=== PATIENT | female | born 1945 | race Caucasian/White ===

== ENCOUNTER 2016-11-12 14:02 | Observation (INO) | payer OTHER ==
[~2016-11-12] VITALS: Ht 154.9 cm; Wt 74.6 kg
[~2016-11-12 14:02] MED LIST: ASPEC81 PO; ATOR-24 PO; CARV12.52 PO; LISI5TAB3 PO; OXYC1TAB3 PO
[2016-11-12 14:05] VITALS: Ht 154.9 cm; Wt 74.6 kg
[2016-11-12] MEDS ORDERED: ASPIRIN 81 MG CHEW PO STA (14:17)
[2016-11-12] MEDS ORDERED: DTRSR5 PO (14:18)
--- NOTE | 2016-11-12 14:40 | DIAGNOSTIC IMAGING REPORT ---
CHEST ONE VIEW PORTABLE CLINICAL HISTORY: 71 years-old Female presenting with Chest Pain. TECHNIQUE: Portable upright AP view of the chest was obtained. COMPARISON: 03/16/2010. FINDINGS: Atherosclerosis of aortic arch. Cardiac silhouette enlarged. Mild pulmonary vascular prominence. Lungs and pleural spaces clear. Osseous structures normal. Previously noted large hiatal hernia is no longer apparent, possibly collapsed or repaired. IMPRESSION: 1. Cardiomegaly and mild vascular prominence. No other evidence of acute cardiopulmonary disease. Electronically signed by: Phoenix Massey M.D. 11/12/2016 2:39 PM Dictated Date/Time: 11/12/2016 2:37 PM
[2016-11-12 15:44] LABS: BASO % 0.1 %; BASO ABS # 0.01 K/uL (0-0.2); COMPLETE YES; HEMATOCRIT 41.1 % (37-47); IG% 0.5 %; LYMPH % 20.2 %; MEAN CELL VOLUME 86.3 fL (80-100); MEAN CORPUSCULAR HEMOGLOBIN 29.6 pg (25-34); MEAN CORPUSCULAR HGB CONC 34.3 g/dl (32-36); MEAN PLATELET VOLUME 9.6 fL (7.4-10.4); MONO % 7.3 %; NEUT % 69.9 %; PLATELET COUNT 133 K/uL (130-400); RED BLOOD COUNT 4.76 M/uL (4.2-5.4); WHITE BLOOD COUNT 7.91 K/uL (4.8-10.8)
[2016-11-12 16:05] LABS: BLOOD UREA NITROGEN 13 mg/dl (7-18); BUN/CREATININE RATIO 14.7 (10-20); CALCIUM 10.1 mg/dl (8.5-10.1); CARBON DIOXIDE 25 mmol/L (21-32); CHLORIDE 108 mmol/L (98-107); GLUCOSE 94 mg/dl (70-99); SODIUM 140 mmol/L (136-145)
[2016-11-12 17:20] VITALS: O2SAT 99
[2016-11-12] MEDS ORDERED: ACETAMINOPHEN 325 MG TAB PO PRN (18:15)
[2016-11-12] MEDS ORDERED: AMLODIPINE BESYLATE 5 MG TAB PO ONE (18:30)
[2016-11-12] MEDS ORDERED: HydrALAZINE HCL 20 MG/ML VIAL IV. PRN (18:30)
[2016-11-12] MEDS ORDERED: IV FLUIDS COMPLETED PRN (18:30)
[2016-11-12] MEDS ORDERED: ONDANSETRON INJ 2 MG/ML 2 ML VIAL IV PRN (18:30)
--- NOTE | 2016-11-12 18:37 | History and Physical ---
History & Physical Date & Time of Service: Nov 12, 2016 at 18:37 Chief Complaint: Chest Tenderness Primary Care Physician: Tanisha Burnett D.O. History of Present Illness Source: patient, family The patient is a 71-year-old female presents to the emergency department with complaint of left-sided chest tightness that began after awakening this morning with doing some routine activities. She has no associated shortness of breath or palpitations. She has had a sensation like this in the past but not the same severity or duration. She also describes some vague associated left axillary discomfort. Past Medical/Surgical History Medical Problems: (1) Hypertension Status: Chronic Family History Patient reports no known family medical history. Social History Smoking Status: Never Smoker Smokeless Tobacco Use: No Alcohol Use: none Drug Use: none Housing status: lives alone Occupational Status: retired Immunizations History of Influenza Vaccine: No History of Tetanus Vaccine?: No History of Pneumococcal: No History of Hepatitis B Vaccine: No Multi-Drug Resistant Organisms History of MDRO: No Allergies Coded Allergies: No Known Allergies (Verified , 11/12/16) Home Medications Scheduled Aspirin Enteric Coated (Ecotrin Or Generic *), 81 MG PO DAILY Atorvastatin (Lipitor), 40 MG PO DAILY Carvedilol (Coreg), 12.5 MG PO BID Lisinopril (Zestril), 5 MG PO DAILY Oxybutynin Chloride (Oxybutynin Chloride ER), 5 MG PO BID Review of Systems The patient denies palpitations, shortness of breath, lower extremity swelling, vision change, hearing change, sore throat, fevers, chills, sweats, weight change, fatigue, nausea, vomiting, diarrhea or constipation, abdominal pain, pelvic pain, blood in urine or stool, dysuria, urinary frequency or urgency, lightheadedness , dizziness, headache, memory loss, rash, abnormal bruising or bleeding, imbalance, focal or generalized weakness, numbness or tingling in arms or legs, generalized arthralgias or myalgias, back or neck pain, or night sweats. The review of systems is otherwise negative other than for that already noted above, and at least 10 systems have been reviewed. Physical Exam Vital Signs Date Time Temp Pulse Resp B/P (MAP) Pulse Ox O2 Delivery O2 Flow Rate FiO2 11/12/16 17:44 66 21 175/109 100 Room Air 11/12/16 17:20 99 Room Air 11/12/16 16:33 66 11/12/16 16:24 65 23 177/83 99 Room Air 11/12/16 15:10 82 24 175/96 95 Room Air 11/12/16 15:10 Room Air 11/12/16 14:05 37.0 75 18 193/92 98 Room Air The patient is awake, well-developed and adequately nourished, alert and oriented 3, normocephalic and atraumatic, lying in bed and in no acute distress. HEENT--PERRL, EOMI, mucous membranes and oropharynx normal. Neck--supple, no JVD or bruits, thyroid normal, trachea midline, no adenopathy. Heart--normal S1 and S2, no extra beats, no murmurs, rubs or gallops. Lungs--clear bilaterally with good air movement, no respiratory distress, no accessory muscle use. Abdomen--normal bowel sounds and soft, nontender and nondistended, no hernias or masses, no organomegaly. Extremities--no cyanosis, clubbing or edema. There are good distal pulses b/l. Dermatologic--normal skin turgor, normal color, warm and dry, no abnormal lymph nodes, no rash. Neurologic--cranial nerves II through XII grossly intact, motor and sensory examination normal. Rheumatologic--normal range of motion, nontender, muscles and joints. Psychiatric--normal affect. Diagnostics Laboratory Results Results Past 24 Hours Test 11/12/16 15:29 11/12/16 16:19 11/12/16 18:17 Range/Units White Blood Count 7.91 4.8-10.8 K/uL Red Blood Count 4.76 4.2-5.4 M/uL Hemoglobin 14.1 12.0-16.0 g/dL Hematocrit 41.1 37-47 % Mean Corpuscular Volume 86.3 80-100 fL Mean Corpuscular Hemoglobin 29.6 25-34 pg Mean Corpuscular Hemoglobin Concent 34.3 32-36 g/dl Platelet Count 133 130-400 K/uL Mean Platelet Volume 9.6 7.4-10.4 fL Neutrophils (%) (Auto) 69.9 % Lymphocytes (%) (Auto) 20.2 % Monocytes (%) (Auto) 7.3 % Eosinophils (%) (Auto) 2.0 % Basophils (%) (Auto) 0.1 % Neutrophils # (Auto) 5.52 1.4-6.5 K/uL Lymphocytes # (Auto) 1.60 1.2-3.4 K/uL Monocytes # (Auto) 0.58 0.11-0.59 K/uL Eosinophils # (Auto) 0.16 0-0.5 K/uL Basophils # (Auto) 0.01 0-0.2 K/uL RDW Standard Deviation 41.9 36.4-46.3 fL RDW Coefficient of Variation 13.4 11.5-14.5 % Immature Granulocyte % (Auto) 0.5 % Immature Granulocyte # (Auto) 0.04 0.00-0.02 K/uL Sodium Level 140 136-145 mmol/L Potassium Level 4.0 3.5-5.1 mmol/L Chloride Level 108 98-107 mmol/L Carbon Dioxide Level 25 21-32 mmol/L Anion Gap 7.0 3-11 mmol/L Blood Urea Nitrogen 13 7-18 mg/dl Creatinine 0.90 0.60-1.20 mg/dl Est Creatinine Clear Calc Drug Dose 52.4 ml/min Estimated GFR () 74.0 Estimated GFR (Non- 63.9 BUN/Creatinine Ratio 14.7 10-20 Random Glucose 94 70-99 mg/dl Calcium Level 10.1 8.5-10.1 mg/dl Total Creatine Kinase 67 26-192 U/L Creatine Kinase MB 1.1 0.5-3.6 ng/ml Creatine Kinase MB Ratio 0-3.0 Troponin I < 0.015 0-0.045 ng/ml Diagnostic Radiology Patient Name: CAMI SHRESTHA Unit Number: [id number] Dictated: 11/12/161436 Transcribed: 11/12/161436 PBS Printed Date/Time: [~ rep prt dt]/[~ rep prt tm] [~ rep ct labl] - [~ rep ct ivnm] [facility] Radiology Department [place], [place] [id number] Dictated: 11/12/161436 Transcribed: 11/12/161436 PBS Printed Date/Time: [~ rep prt dt]/[~ rep prt tm] [~ rep ct labl] - [~ rep ct ivnm] [~ rep ct add3]] CHEST ONE VIEW PORTABLE CLINICAL HISTORY: 71 years-old Female presenting with Chest Pain. TECHNIQUE: Portable upright AP view of the chest was obtained. COMPARISON: 03/16/2010. FINDINGS: Atherosclerosis of aortic arch. Cardiac silhouette enlarged. Mild pulmonary vascular prominence. Lungs and pleural spaces clear. Osseous structures normal. Previously noted large hiatal hernia is no longer apparent, possibly collapsed or repaired. IMPRESSION: 1. Cardiomegaly and mild vascular prominence. No other evidence of acute cardiopulmonary disease. Electronically signed by: Phoenix Massey M.D. 11/12/2016 2:39 PM Dictated Date/Time: 11/12/2016 2:37 PM The status of this report is Signed. Draft = Not yet reviewed or approved by Radiologist. Signed = Reviewed and approved by Radiologist. <AttendingPhy></AttendingPhy> <FamilyPhy>Clifton Azar M.D.</FamilyPhy> < PrimaryPhy>Tanisha Burnett D.O.</PrimaryPhy> <UnitNumber>[id number]</UnitNumber> <VisitNumber>[id number]</VisitNumber> <PatientName>CAMI SHRESTHA You</ PatientName> <DateOfBirth>1945</DateOfBirth> <Location>[facility]</Location> < ServiceDate>11/12/16</ServiceDate> <MNE>ESINDI</MNE> <OrderingPhy>Akash Shah DO</OrderingPhy> <OrderingPhyMNE>f rep ord dr walker</OrderingPhyMNE> < DictatingPhyMNE>f rep dict dr walker</DictatingPhyMNE> <CCListMNE>f rep ct tanae</ CCListMNE> <AdmittingPhyMNE>f pt admit dr walker</AdmittingPhyMNE> <AttendingPhyMNE >f pt attend dr walker</AttendingPhyMNE> <ConsultingPhyMNE>f pt consult dr walker</ConsultingPhyMNE> <FamilyPhyMNE>f pt fam dr walker</FamilyPhyMNE> <OtherPhyMNE>f pt other dr walker</OtherPhyMNE> < PrimaryPhyMNE>f pt prim care dr walker</PrimaryPhyMNE> <ReferringPhyMNE>f pt referring dr walker</ReferringPhyMNE> EKG EKG shows normal sinus rhythm at 60 bpm, worsening T-wave inversions in leads III and aVF compared to previous. Impression Assessment and Plan Precordial chest pain with abnormal EKG/normal troponin/resolved symptoms-- The patient will be admitted to telemetry for serial cardiac enzymes, cardiac rhythm monitoring and a 2-D echocardiogram with Dopplers. Carvedilol 12.5 mg by mouth twice a day. Aspirin 81 mg by mouth daily. Lisinopril 5 mg by mouth daily. Normal saline with KCl 20 mEq at 75 ML's per hour. Check a fasting lipid profile and hemoglobin A1c. Hyperlipidemia-- Atorvastatin 40 mg by mouth daily. Bladder incontinence-- continue oxybutynin Level of Care Telemetry Advanced Directives Existing Advance Directive: No Existing Living Will: No Existing Power of Radio Program Checker: No Resuscitation Status FULL RESUSCITATION VTE Prophylaxis VTE Risk Assessment Done? Y/N: Yes Risk Level: Moderate Given or contraindicated: SCD's Social Service Consult None Apply
[2016-11-12 19:19] VITALS: BP 181/76; PULSE 63; TEMP 36.7; O2SAT 96
--- NOTE | 2016-11-12 19:59 | EMERGENCY ROOM VISIT NOTE ---
History Report prepared by Jacquelineiblorena: Cande Hodge Under the Supervision of: Dr. Akash Shah D.O. First contact with patient: 14:09 Chief Complaint: CARDIAC ASSESSMENT Stated Complaint: CHEST TENDERNESS History of Present Illness The patient is a 71 year old female who presents to the Emergency Room with complaints of chest pain that started around 0930 this morning. The pain lasted for approximately 1 hour and has not returned. She states she was "sitting down " when the pain started. Nothing seemed to make it better or worse and she rates her discomfort as a 3/10. She took no medication for her pain, but states she did take her regular baby Aspirin this morning when she took her daily medications. She admits to a history of an NE in 2004 and states her bilateral underarms ached at that time, but she experienced no chest pain. She did experience some underarm pain this morning, but states "it wasn't as bad" as the pain she experienced when she had her NE. She denies any jaw or shoulder pain. The patient had 2 left sided stents placed in [place], [place], after her NE. She states she underwent a stress test last month that was unremarkable. She takes no daily blood thinners. The patient denies any headache, change in vision , fevers, shortness of breath, nausea, vomiting, diarrhea, pain with urination, and melena. Source of History: patient Onset: 929 this morning Position: chest Symptom Intensity: 3/10 Timing: resolved Associated Symptoms: No fevers, No headache, No SOB, No nausea, No vomiting , No melena, No diarrhea, No urinary symptoms Review of Systems See HPI for pertinent positives & negatives. A total of 10 systems reviewed and were otherwise negative. Past Medical & Surgical Medical Problems: (1) Hypertension (2) Intractable nausea and vomiting (3) Precordial chest pain Family History Patient reports no known family medical history. Social History Smoking Status: Never Smoker Alcohol Use: none Drug Use: none Marital Status: Housing Status: lives with family Occupation Status: retired Current/Historical Medications Scheduled Aspirin Enteric Coated (Ecotrin Or Generic *), 81 MG PO DAILY Atorvastatin (Lipitor), 40 MG PO DAILY Carvedilol (Coreg), 12.5 MG PO BID Lisinopril (Zestril), 5 MG PO DAILY Oxybutynin Chloride (Oxybutynin Chloride ER), 5 MG PO BID Allergies Coded Allergies: No Known Allergies (Verified , 11/12/16) Physical Exam Vital Signs Date Time Temp Pulse Resp B/P (MAP) Pulse Ox O2 Delivery O2 Flow Rate FiO2 11/12/16 17:44 66 21 175/109 100 Room Air 11/12/16 17:20 99 Room Air 11/12/16 16:33 66 11/12/16 16:24 65 23 177/83 99 Room Air 11/12/16 15:10 82 24 175/96 95 Room Air 11/12/16 15:10 Room Air 11/12/16 14:05 37.0 75 18 193/92 98 Room Air Physical Exam GENERAL: Patient is alert, sitting up in bed, well appearing, well nourished, no distress, non-toxic EYE EXAM: normal conjunctiva OROPHARYNX: no exudate, no erythema, lips, buccal mucosa, and tongue normal and mucous membranes are moist NECK: supple, no nuchal rigidity, no adenopathy, non-tender LUNGS: Clear to auscultation. Normal chest wall mechanics HEART: no murmurs, S1 normal and S2 normal ABDOMEN: abdomen soft, non-tender, normo-active bowel sounds, no masses, no rebound or guarding. BACK: Back is symmetrical on inspection and there is no deformity, no midline tenderness, no CVA tenderness. SKIN: no rashes and no bruising UPPER EXTREMITIES: upper extremities are grossly normal. LOWER EXTREMITIES: No pitting edema. NEURO EXAM: Normal sensorium, cranial nerves II-XII grossly intact, normal speech, no gross weakness of arms, no gross weakness of legs. Gross sensation intact. Medical Decision & Procedures ER Provider Diagnostic Interpretation: Radiology results as stated below per my review and the radiologist's interpretation: CHEST ONE VIEW PORTABLE CLINICAL HISTORY: 71 years-old Female presenting with Chest Pain. TECHNIQUE: Portable upright AP view of the chest was obtained. COMPARISON: 03/16/2010. FINDINGS: Atherosclerosis of aortic arch. Cardiac silhouette enlarged. Mild pulmonary vascular prominence. Lungs and pleural spaces clear. Osseous structures normal. Previously noted large hiatal hernia is no longer apparent, possibly collapsed or repaired. IMPRESSION: 1. Cardiomegaly and mild vascular prominence. No other evidence of acute cardiopulmonary disease. Electronically signed by: Phoenix Massey M.D. 11/12/2016 2:39 PM Laboratory Results 11/12/16 15:29 Red Blood Count 4.76, Mean Corpuscular Volume 86.3, Mean Corpuscular Hemoglobin 29.6, Mean Corpuscular Hemoglobin Concent 34.3, Mean Platelet Volume 9.6, Neutrophils (%) (Auto) 69.9, Lymphocytes (%) (Auto) 20.2, Monocytes (%) (Auto) 7.3, Eosinophils (%) (Auto) 2.0, Basophils (%) (Auto) 0.1, Neutrophils # (Auto) 5.52, Lymphocytes # (Auto) 1.60, Monocytes # (Auto) 0.58, Eosinophils # (Auto) 0.16, Basophils # (Auto) 0.01 11/12/16 15:29 11/12/16 16:19 Test 11/12/16 15:29 11/12/16 16:19 White Blood Count 7.91 K/uL (4.8-10.8) Red Blood Count 4.76 M/uL (4.2-5.4) Hemoglobin 14.1 g/dL (12.0-16.0) Hematocrit 41.1 % (37-47) Mean Corpuscular Volume 86.3 fL (80-100) Mean Corpuscular Hemoglobin 29.6 pg (25-34) Mean Corpuscular Hemoglobin Concent 34.3 g/dl (32-36) Platelet Count 133 K/uL (130-400) Mean Platelet Volume 9.6 fL (7.4-10.4) Neutrophils (%) (Auto) 69.9 % Lymphocytes (%) (Auto) 20.2 % Monocytes (%) (Auto) 7.3 % Eosinophils (%) (Auto) 2.0 % Basophils (%) (Auto) 0.1 % Neutrophils # (Auto) 5.52 K/uL (1.4-6.5) Lymphocytes # (Auto) 1.60 K/uL (1.2-3.4) Monocytes # (Auto) 0.58 K/uL (0.11-0.59) Eosinophils # (Auto) 0.16 K/uL (0-0.5) Basophils # (Auto) 0.01 K/uL (0-0.2) RDW Standard Deviation 41.9 fL (36.4-46.3) RDW Coefficient of Variation 13.4 % (11.5-14.5) Immature Granulocyte % (Auto) 0.5 % Immature Granulocyte # (Auto) 0.04 K/uL (0.00-0.02) Anion Gap 7.0 mmol/L (3-11) Est Creatinine Clear Calc Drug Dose 52.4 ml/min Estimated GFR () 74.0 Estimated GFR (Non- 63.9 BUN/Creatinine Ratio 14.7 (10-20) Calcium Level 10.1 mg/dl (8.5-10.1) Magnesium Level 2.0 mg/dl (1.8-2.4) Total Bilirubin 1.0 mg/dl (0.2-1) Direct Bilirubin 0.2 mg/dl (0-0.2) Aspartate Amino Transf (AST/SGOT) 17 U/L (15-37) Alanine Aminotransferase (ALT/SGPT) 21 U/L (12-78) Alkaline Phosphatase 83 U/L (45-117) Total Protein 7.0 gm/dl (6.4-8.2) Albumin 3.8 gm/dl (3.4-5.0) Laboratory results per my review. Medications Administered Medications (Trade) Dose Ordered Sig/Glenn Route Start Time Stop Time Status Last Admin Dose Admin Aspirin (Aspirin Chew) 324 mg NOW STAT PO 11/12/16 14:17 11/12/16 14:18 DC 11/12/16 15:17 324 MG ECG Indication: chest pain Rate (beats per minute): 68 Rhythm: sinus rhythm Findings: other (normal axis, flipped T) Comparison ECG Date: T-waves are more prominent in the inferior and lateral leads when compared to previous ED Course ED COURSE: Vital signs were reviewed and showed the patient is hypertensive. The patients medical record was reviewed The above diagnostic studies were performed and reviewed. ED treatments and interventions as stated above. 1410: The patient was evaluated in room C8. A complete history and physical examination was performed. 1417: Aspirin 324 mg PO. 1723: I discussed the patients case with Dr. Mccallum, [facility] Hospitalist. The patient will be further evaluated. 1730: Upon reevaluation, the patient is resting comfortably. I discussed my findings with the patient and she understands and agrees with the treatment plan. Based on the patients age, coexisting illnesses, exam and lab findings the decision to treat as an inpatient was made. The patient remained stable while under my care. The patient will be evaluated for further management. Medical Decision Differential diagnoses includes but is not limited to acute coronary syndrome, myocardial infarction, pericarditis, pulmonary embolus, aortic dissection, pneumonia, pneumothorax, musculoskeletal, shingles, esophageal. Patient is a 71-year-old female who presents to the ER for precordial chest pain which have been present for 1 hour earlier this morning. Patient notes he was in the middle of her chest and under her arm. It felt similar to her previous NE where she had 2 stents placed. Recent stress with in the past 2 months was unremarkable. Patient. Pain has completely abated. Aspirin was given. No chest pain upon arrival. EKG shows new flipped T waves. Chest x- ray was unremarkable. Troponin was negative. Patient was updated bedside. Discussed with internal medicine and patient was observed overnight. Medication Reconcilliation Current Medication List: was personally reviewed by me Blood Pressure Screening Patient's blood pressure: Elevated blood pressure The patients elevated blood pressure will be further evaluated by the hospital medicine team. Consults Time Called: 1720 Consulting Physician: Dr. Mccallum [facility] Hospitalist Returned Call: 1723 I discussed the patients case with Dr. Mccallum [facility] Hospitalist. The patient will be further evaluated. Impression Primary Impression: Precordial chest pain Additional Impression: Acute electrocardiogram changes Scribe Attestation The scribe's documentation has been prepared under my direction and personally reviewed by me in its entirety. I confirm that the note above accurately reflects all work, treatment, procedures, and medical decision making performed by me. Departure Information Dispostion Being Evaluated By Hospitalist Referrals Tanisha Burnett D.O. (PCP) Patient Instructions My [facility] [address] Problem Qualifiers
[2016-11-12 20:00] VITALS: O2SAT 96
[2016-11-12] MEDS: NSS + 20MEQ KCL 1000ML 1,000 ML IV SCH (20:19)
[2016-11-12 20:29] LABS: CKMB/CK RATIO 1.5 (0-3.0)
[2016-11-12] MEDS: OXYBUTYNIN CHLORIDE 5 MG TABCR PO SCH (20:57)
[2016-11-12 20:58] VITALS: BP 166/78; PULSE 73
[2016-11-12] MEDS: CARVEDILOL 12.5 MG TAB PO SCH (20:58)
[2016-11-12 23:31] VITALS: BP 135/72; PULSE 63; TEMP 36.5; O2SAT 97
[2016-11-13 03:07] LABS: CKMB/CK RATIO 2.1 (0-3.0)
[2016-11-13 04:00] VITALS: BP 133/80; PULSE 58; TEMP 36.5; O2SAT 97
[2016-11-13 07:25] VITALS: BP 147/79; PULSE 65; TEMP 36.8; O2SAT 98
[2016-11-13] MEDS: OXYBUTYNIN CHLORIDE 5 MG TABCR PO SCH (07:56)
[2016-11-13] MEDS: CARVEDILOL 12.5 MG TAB PO SCH (07:56)
[2016-11-13 08:00] VITALS: O2SAT 98
[2016-11-13 08:24] LABS: BASO % 0.2 %; BASO ABS # 0.01 K/uL (0-0.2); COMPLETE YES; EOS % 2.6 %; HEMATOCRIT 39.9 % (37-47); IG% 0.5 %; LYMPH % 21.5 %; LYMPH ABS # 1.23 K/uL (1.2-3.4); MEAN CELL VOLUME 86.6 fL (80-100); MEAN CORPUSCULAR HEMOGLOBIN 30.2 pg (25-34); MEAN CORPUSCULAR HGB CONC 34.8 g/dl (32-36); MEAN PLATELET VOLUME 9.4 fL (7.4-10.4); MONO % 6.6 %; NEUT % 68.6 %; PLATELET COUNT 123 K/uL (130-400); RED BLOOD COUNT 4.61 M/uL (4.2-5.4); WHITE BLOOD COUNT 5.73 K/uL (4.8-10.8)
[2016-11-13] MEDS: NSS + 20MEQ KCL 1000ML 1,000 ML IV SCH (08:33)
[2016-11-13 08:52] LABS: CALCIUM 9.4 mg/dl (8.5-10.1); CREATININE 0.86 mg/dl (0.60-1.20); POTASSIUM 4.2 mmol/L (3.5-5.1)
[2016-11-13 08:58] LABS: INR 1.1 (0.9-1.1); PROTHROMBIN TIME (PATIENT) 11.4 SECONDS (9.0-12.0)
[2016-11-13] MEDS ORDERED: ASPIRIN 81 MG ECTAB PO SCH (09:00)
[2016-11-13] MEDS ORDERED: LISINOPRIL 5 MG TAB PO SCH (09:00)
[2016-11-13] MEDS ORDERED: ATORVASTATIN 40 MG TAB PO SCH (09:00)
[2016-11-13 11:15] VITALS: BP 159/81; PULSE 61; TEMP 36.7; O2SAT 94
--- NOTE | 2016-11-13 11:15 | Discharge Summary ---
Discharge Summary Date of Service Nov 13, 2016. Discharge Summary Admission Date: Nov 12, 2016 at 18:11 Discharge Date: Nov 13, 2016 Immunizations: Have You Had Influenza Vaccine: No History of Tetanus Vaccine?: No History of Pneumococcal: No History of Hepatitis B Vaccine: No Hospital Course Patient had atypical chest pain, sharp, at rest. Patient reports having negtaive EKG exercise stress test EKG showed twave inversion on AVF III, which are depper than her EKG on record here 5 years ago. Recommend f/u with Dr. Azar to review EKG. This includes examination of the patient, discharge planning, medication reconciliation, and communication with other providers. Discharge Instructions Please refer to the electronic Patient Visit Report (Discharge Instructions) for additional information. Additional Copies To Clifton Azar M.D.
--- NOTE | 2016-11-13 11:16 | Discharge Instructions ---
Discharge Instructions Date of Service Nov 13, 2016. Admission Reason for Admission: Precordial Chest Pain Discharge Discharge Diagnosis / Problem: Atypical chest pain Discharge Goals Goal(s): Decrease discomfort, Improve function Activity Recommendations Activity Limitations: resume your previous activity . Current Hospital Diet Patient's current hospital diet: AHA Diet (Heart Healthy) Discharge Diet Recommended Diet: AHA Diet (Heart Healthy) Pending Studies Studies pending at discharge: no Medical Emergencies . Who to Call and When: Medical Emergencies: If at any time you feel your situation is an emergency, please call 911 immediately. . Non-Emergent Contact Non-Emergency issues call your: Unarmed Security Officer Call Non-Emergent contact if: your pain is worsening . . "Provider Documentation" section prepared by Juan Azar. . Stoker Erector And Servicer Recommendations Stoker Erector And Servicer Recommendations: Recommend F/U with Dr. Azar in 10 days VTE Core Measure Inpt VTE Proph given/why not?: SCD's
[2016-11-13 11:22] LABS: CKMB/CK RATIO 1.6 (0-3.0)
[2016-11-13 11:28] VITALS: BP 159/81; PULSE 61; TEMP 36.7; O2SAT 94
== END 2016-11-13 11:50 | disposition home or self-care (01) ==
LOC: C.EDB 14:05 → C.MED 18:11 → ENRESERV 18:18
PROVIDERS: ADMIT Hospitalist; ATTEND Internal Medicine Sports Medicine
DX: R07.89 Other chest pain (principal); I10 Essential (primary) hypertension; Z79.82 Long term (current) use of aspirin; Z98.890 Other specified postprocedural states

== ENCOUNTER 2019-05-24 14:33 | Observation (INO) ==
[2019-05-24] MEDS ORDERED: ASPIRIN CHEW 324 MG PO STA (15:12)
--- NOTE | 2019-05-24 15:36 | Emergency Department Note ---
History of Present Illness General Chief Complaint: Chest Pain Stated Complaint: CHEST PAIN Time Seen by Provider: 05/24/19 15:04 History of Present Illness Provider Complaint: chest pain Onset (ago): hour(s) 3 Time: 12:00 Duration: now resolved Onset: during rest Pain Location: substernal Pain Radiation: LUE Maximum Pain Intensity: 9 Current Pain Intensity: 0 Quality: + dull Relieved By: + nothing Exacerbated By: + nothing Context: no recent surgery, no recent immobilization, no recent travel and no history of DVT/PE Associated symptoms: + nausea and + cough; no vomiting, no palpitations, no f ever and no leg swelling Treatments prior to arrival: none Related Data On Oral Contraceptives: No Home Medications Home Medications Medication Instructions Recorded Confirmed Type aspirin 81 mg PO QAM 04/30/19 05/24/19 History atorvastatin 40 mg PO HS 04/30/19 05/24/19 History carvedilol 12.5 mg PO BID 04/30/19 05/24/19 History lisinopril 5 mg PO QAM 04/30/19 05/24/19 History meclizine 25 mg PO TID PRN #14 tab 04/30/19 05/24/19 Rx oxybutynin chloride 5 mg PO BID PRN 04/30/19 05/24/19 History Allergies Allergy/AdvReac Type Severity Reaction Status Date / Time No Known Allergies Allergy Unknown Verified 04/30/19 11:23 Past Med/Surg History Medical History (Updated 05/24/19 @ 17:59 by Kilo Morataya) Hyperlipidemia Hypertension (Chronic) Intractable nausea and vomiting No pertinent family history Precordial chest pain Urinary incontinence Vertigo Surgical History (Updated 05/24/19 @ 15:33 by Kilo Morataya) H/O heart artery stent Social History Feels Safe at Home: Yes Smoking Status: Never smoker Review of Systems A total of 10 systems reviewed and were otherwise negative Physical Exam Vital Signs Vital Signs - 24 hr 05/24/19 14:41 05/24/19 14:54 05/24/19 15:59 Temperature 36.9 C Temperature Source Oral Pulse Rate 81 75 Pulse Rate from SpO2 Sensor 74 Respiratory Rate 20 20 Blood Pressure 210/97 H 197/92 H Blood Pressure Mean 134 113 Pulse Oximetry 99 98 97 Oxygen Delivery Method Room Air Room Air Sepsis Recent Fever Within 48 Hours No Sepsis New/Unexplained Change in Mental Status No Sepsis Action Taken by Nursing No Action Required 05/24/19 16:00 05/24/19 16:30 05/24/19 16:33 Temperature Temperature Source Pulse Rate 71 64 66 Pulse Rate from SpO2 Sensor Respiratory Rate 14 15 18 Blood Pressure 202/93 H Blood Pressure Mean 123 Pulse Oximetry 96 Oxygen Delivery Method Room Air Sepsis Recent Fever Within 48 Hours Sepsis New/Unexplained Change in Mental Status Sepsis Action Taken by Nursing 05/24/19 17:00 Temperature Temperature Source Pulse Rate 64 Pulse Rate from SpO2 Sensor Respiratory Rate 14 Blood Pressure 185/82 H Blood Pressure Mean 115 Pulse Oximetry Oxygen Delivery Method Sepsis Recent Fever Within 48 Hours Sepsis New/Unexplained Change in Mental Status Sepsis Action Taken by Nursing Physical Exam GENERAL: She is oriented to person, place, and time. She appears well-developed and well-nourished. She does not appear distressed. HENT: Exam performed. -Head: Normocephalic and atraumatic. -Right Ear: External ear normal. No mastoid tenderness. -Left Ear: External ear normal. No mastoid tenderness. -Mouth/Throat: The oropharynx is clear and moist. No trismus in the jaw. No dental abscesses or uvula swelling. No oropharyngeal exudate or tonsillar abscesses. EYES: Conjunctivae and EOM are normal. Pupils are equal, round, and reactive to light. Right eye exhibits no discharge. Left eye exhibits no discharge. No scleral icterus. NECK: Normal range of motion. Neck supple. No JVD present. No spinous process tenderness present. No carotid bruit present. No rigidity. No tracheal deviation and normal range of motion present. No Brudzinski's sign and no Kernig's sign noted. CV: Normal rate, regular rhythm, normal heart sounds and intact distal pulses. There is no peripheral edema. Palpable radial pulses bue. PULM/CHEST: Effort normal and breath sounds normal. No respiratory distress. No stridor. She has no wheezes. She has no rales. -Chest Wall: She exhibits no tenderness. ABD: The abdomen is soft. Bowel sounds are normal. She has no distension. No mass is present. There is no tenderness. There is no rebound, no guarding, no Cade's sign and no tenderness at McBurney's point. Rovsig negative MUSC/SKEL: Normal range of motion. There is no peripheral edema, tenderness or deformity. LYMPH: No cervical adenopathy. NEURO: She is alert and oriented to person, place, and time. She has normal strength. No cranial nerve deficit or sensory deficit. Coordination and gait normal. GCS eye subscore is 4. GCS verbal subscore is 5. GCS motor subscore is 6. Cerebellar tests wnl. SKIN: Skin is warm and dry. She is not diaphoretic. PSYCH: She has a normal mood and affect. Behavior is normal. Judgment and thought content normal. Course Course 1500: The patient was evaluated in room A9. A complete history and physical exam was performed. 1720: Vital signs stable. Labs and imaging within normal limits. Patient has a moderate heart score. She will be admitted for chest pain rule out ACS. Admitted to [facility]ist Dr. Carmichael Administered Medications Discontinued Medications Aspirin (Aspirin) 324 mg PO NOW STA Stop: 05/24/19 15:13 Last Admin: 05/24/19 15:27 Dose: 324 mg Documented by: [id number] Medical Decision Making Laboratory Data Result diagrams: 05/24/19 16:35 05/24/19 16:35 Labs: Lab Results 05/24/19 05/24/19 05/24/19 Range/Units 16:35 16:35 16:35 WBC 6.51 (4.8-10.8) K/uL RBC 4.35 (4.2-5.4) M/uL Hgb 12.9 (12.0-16.0) g/dL Hct 38.0 (37-47) % MCV 87.4 (80-100) fL MCH 29.7 (25-34) pg MCHC 33.9 (32-36) g/dL RDW Std Deviation 45.3 (36.4-46.3) fL RDW Coeff of Sara 14.0 (11.5-14.5) % Plt Count 146 (130-400) K/uL MPV 9.8 (7.4-10.4) fL Immature Gran % (Auto) 0.3 % Neut % (Auto) 60.1 % Lymph % (Auto) 26.7 % [place] % (Auto) 8.9 % Eos % (Auto) 3.8 % Baso % (Auto) 0.2 % Immature Gran # (Auto) 0.02 (0.00-0.02) K/uL Neut # (Auto) 3.91 (1.4-6.5) K/uL Lymph # (Auto) 1.74 (1.2-3.4) K/uL [place] # (Auto) 0.58 (0.11-0.59) K/uL Eos # (Auto) 0.25 (0-0.5) K/uL Baso # (Auto) 0.01 (0-0.2) K/uL PT 11.4 (9.0-12.0) Seconds INR 1.1 (0.9-1.1) APTT 24.4 (21.0-31.0) Seconds PTT Ratio 0.9 Sodium 142 (136-145) mmol/L Potassium 3.7 (3.5-5.1) mmol/L Chloride 113 H (98-107) mmol/L Carbon Dioxide 25 (21-32) mmol/L Anion Gap 4.0 (3-11) BUN 16 (7-18) mg/dl Creatinine 0.68 (0.6-1.2) mg/dl Est Cr Clr Drug Dosing 64.4 ml/min Est GFR ( Amer) 99.2 Est GFR (Non-Af Amer) 85.6 BUN/Creatinine Ratio 23.3 H (10-20) Glucose 104 H (70-99) mg/dl Calcium 9.6 (8.5-10.1) mg/dl Troponin I < 0.015 (0-0.045) ng/ml Lipase 67 L (73-393) U/L Imaging Data Chest x-ray: Radiologist's impression: XR chest 2V PA/lateral CLINICAL HISTORY: 74 years-old Female presenting with Chest Pain. TECHNIQUE: PA and lateral views of the chest were obtained. COMPARISON: 11/12/2016. FINDINGS: Atherosclerosis of the aortic arch. Cardiac silhouette mildly enlarged. Lungs are hyperinflated. No focal opacity. No pleural effusion or pneumothorax. Degenerative changes of the thoracic spine. Exaggerated thoracic kyphosis. Upper abdomen normal. IMPRESSION: 1. Mild cardiomegaly. 2. Hyperinflation may indicate emphysema or relate to exaggerated thoracic kyphosis. 3. No focal infiltrate to suggest pneumonia or edema. ACT 112: Negative or not required by law. Electronically signed by: Phoenix Massey M.D. 05/24/2019 3:50 PM Dictated: 05/24/19 1547 Transcribed: 05/24/191546 ECG Data Rate (beats per minute): 70 Rhythm: normal sinus Findings: no T-wave inversion and no ST elevation Additional Comments: Sinus Rhythym. Rate 70. OH QRS and Qtc intervals within normal limits. No ST elevation or ST depression. Left ventricular hypertrophy present. MDM Narrative Vital signs stable. Labs and imaging within normal limits. Patient has a moderate heart score. She will be admitted for chest pain rule out ACS. Admitted to [facility] hospitalist Dr. Carmichael Impression & Plan Chest pain Discharge Plan Visit Data Chief Complaint: Chest Pain Stated Complaint: CHEST PAIN ED Provider: Kilo Morataya Discharge Problem: Chest pain Patient Disposition: Being Evaluated by Hospitalist Forms Stand Alone Forms: My [facility] Prescriptions Prescriptions: No Action meclizine 25 mg tablet 25 mg PO TID PRN (Reason: dizziness) Qty: 14 RF: 0 atorvastatin 40 mg tablet 40 mg PO HS RF: 0 carvedilol 12.5 mg tablet 12.5 mg PO BID RF: 0 oxybutynin chloride 5 mg tablet extended release 24hr 5 mg PO BID PRN (Reason: OVER ACTIVE BLADDER) RF: 0 lisinopril 5 mg tablet 5 mg PO QAM RF: 0 aspirin 81 mg Tablet,Delayed Release (Dr/Ec) 81 mg PO QAM RF: 0 Referrals Referrals: Tanisha Burnett D.O. [Primary Care Provider] - Discharge Problem: Chest pain Qualifiers: Chest pain type: unspecified Qualified Code(s): R07.9 - Chest pain, unspecified
--- NOTE | 2019-05-24 15:51 | XRay Report ---
XR chest 2V PA/lateral CLINICAL HISTORY: 74 years-old Female presenting with Chest Pain. TECHNIQUE: PA and lateral views of the chest were obtained. COMPARISON: 11/12/2016. FINDINGS: Atherosclerosis of the aortic arch. Cardiac silhouette mildly enlarged. Lungs are hyperinflated. No f ocal opacity. No pleural effusion or pneumothorax. Degenerative changes of the thoracic spine. Exagge rated thoracic kyphosis. Upper abdomen normal. IMPRESSION: 1. Mild cardiomegaly. 2. Hyperinflation may indicate emphysema or relate to exaggerated thoracic kyphosis. 3. No focal infiltrate to suggest pneumonia or edema. ACT 112: Negative or not required by law. Electronically signed by: Phoenix Massey M.D. 05/24/2019 3:50 PM
--- NOTE | 2019-05-24 16:02 | Electrocardiogram Report ---
Test Reason : Blood Pressure : / mmHG Vent. Rate : 070 BPM Atrial Rate : 070 BPM P-R Int : 146 ms QRS Dur : 092 ms QT Int : 390 ms P-R-T Axes : 042 -14 -30 degrees QTc Int : 421 ms Normal sinus rhythm with sinus arrhythmia Minimal voltage criteria for LVH, may be normal variant Nonspecific ST and T wave abnormality Abnormal ECG When compared with ECG of 13-NOV-2016 08:16, T wave inversion no longer evident in Anterior leads Confirmed by Oren Downing ([id number]) on 05/24/2019 4:02:40 PM Referred By: REFERRED SELF Confirmed By:Oren Downing
[2019-05-24 16:49] LABS: Basophils # (auto) 0.01 K/uL (0-0.2); Basophils % (auto) 0.2 %; Eosinophils # (auto) 0.25 K/uL (0-0.5); Eosinophils % (auto) 3.8 %; Hemoglobin 12.9 g/dL (12.0-16.0); Immature Granulocytes # (auto) 0.02 K/uL (0.00-0.02); Immature Granulocytes % (auto) 0.3 %; Lymphocytes # (auto) 1.74 K/uL (1.2-3.4); Lymphocytes % (auto) 26.7 %; Mean Corpuscular Hemoglobin 29.7 pg (25-34); Mean Corpuscular Hgb Conc 33.9 g/dL (32-36); Mean Corpuscular Volume 87.4 fL (80-100); Mean Platelet Volume 9.8 fL (7.4-10.4); Monocytes # (auto) 0.58 K/uL (0.11-0.59); Monocytes % (auto) 8.9 %; Neutrophils # (auto) 3.91 K/uL (1.4-6.5); Neutrophils % (auto) 60.1 %; Platelet Count 146 K/uL (130-400); RDW Standard Deviation 45.3 fL (36.4-46.3); Red Blood Count 4.35 M/uL (4.2-5.4); White Blood Count 6.51 K/uL (4.8-10.8)
[2019-05-24 17:00] LABS: INR 1.1 (0.9-1.1); Partial Thromboplastin Ratio 0.9; Partial Thromboplastin Time 24.4 Seconds (21.0-31.0); Prothrombin Time 11.4 Seconds (9.0-12.0)
[2019-05-24 17:06] LABS: BUN Creatinine Ratio 23.3 (10-20); Blood Urea Nitrogen 16 mg/dl (7-18); Calcium 9.6 mg/dl (8.5-10.1); Carbon Dioxide 25 mmol/L (21-32); Chloride 113 mmol/L (98-107); Creatinine Clr Calc Pharmacy 64.4 ml/min; Est GFR (African American) 99.2; Est GFR (Non-African American) 85.6; Glucose 104 mg/dl (70-99); Lipase 67 U/L (73-393); Potassium 3.7 mmol/L (3.5-5.1); Sodium 142 mmol/L (136-145)
[2019-05-24 17:10] LABS: Troponin I < 0.015 ng/ml (0-0.045)
[2019-05-24] MEDS ORDERED: HydrALAZINE HCL 20 MG/ML VIAL IV PRN (18:38)
--- NOTE | 2019-05-24 18:43 | History & Physical Report ---
Date of Service May 24, 2019 Assessment & Plan (1) Chest pain: Atypical chest pain, associated with burning and loose stools and then resolves, related to anxiety as well No melena or hematochezia With history of CAD and stens 2004 ECG negative, troponin negative -Admit to [facility] for arrhythmia monitoring -serial troponins and ECGs -check ECHO for WMAs -if trops negative consider stress test in AM -Cardiology consult -trial of Pepcid 20mg po bid as seems GI in nature -continue home Coreg, lisinopril, statin -check lipids in AM -follows w/ Dr. Azar for Cardiology (2) Hypertension: With hypertensive urgency, BP 210.93 in ER Secondary to anxiety -give evening dose of Coreg now -continue lisinopril daily -IV hydralazine prn (3) Hyperlipidemia: continue statin -check lipids in AM (4) Urinary incontinence: -continue oxybutynin (5) DVT prophylaxis: Lovenox SQ, SCDs Dispo- admit to med tele on obs History of Present Illness Chief Complaint: Chest pain Primary Care Provider: Tanisha Burnett This pt is a 74 yo female with a h/o CAD s/p stent placement x 2 in approx 2004, HTN, overactive bladder, and recent vertigo, who presents with atypical ch est pain. SHe reports she started having substernal chest pain and some left sided chest pain that felt like indigestion and was associated with a loose stool each time today. This occurred 2 or 3 times and chest pains went away after having a BM each time. Stool nonbloody, no abdominal pain, no nausea or vomiting. She did not try taking anything at home for her symptoms. She reports she started thinking about what would happen to her dogs/animals if something happened to her given her cardiac history and this made her symptoms worse. Each time, the symptoms went away on their own. Denies SOB, diaphoresis, no leg swelling. Denies any recent coughs, cold symptoms, no fevers/chills/sweats. She has been isolated in her house for weeks and lives alone. Her son does come to bring her groceries and check on her and he also has not been sick and has been socially isolated. In the ER, she had a normal chest xray, normal ECG, normal labs including negative troponin. She will be admitted for a workup to rule out cardiac cause of chest pain. Allergies Allergy/AdvReac Type Severity Reaction Status Date / Time No Known Allergies Allergy Unknown Verified 04/30/19 11:23 Home Medications Home Medications Medication Instructions Recorded Confirmed Type aspirin 81 mg PO QAM 04/30/19 05/24/19 History atorvastatin 40 mg PO HS 04/30/19 05/24/19 History carvedilol 12.5 mg PO BID 04/30/19 05/24/19 History lisinopril 5 mg PO QAM 04/30/19 05/24/19 History meclizine 25 mg PO TID PRN #14 tab 04/30/19 05/24/19 Rx oxybutynin chloride 5 mg PO BID PRN 04/30/19 05/24/19 History Past Med/Surg History Medical History Hyperlipidemia Hypertension (Chronic) No pertinent family history Precordial chest pain Urinary incontinence Vertigo Surgical History H/O heart artery stent Family History Father , Unsure of reason No problems noted. Mother , age 48 from ruptured ventral hernia complications No problems noted. 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[employer]; [employer] Feels Safe at Home: Yes Smoking Status: Never smoker Hx Alcohol Use: No Review of Systems Review of Systems: All systems reviewed & are unremarkable except as noted in HPI & below Physical Exam Constitutional: WD/WN, vitals as above no acute distress (but crying about being admitted,worried about her dogs at home) Eyes: PERRL, conjunctivae normal, anicteric sclerae ENMT: external ear and nose normal, oropharynx normal Neck: trachea midline, no thyromegaly Respiratory: normal respiratory effort, lungs clear to auscultation Cardiovascular: RRR, no murmur, no edema Vessels: no JVD and no carotid bruit Chest (Breasts): Chest: normal inspection of chest Gastrointestinal (Abdomen): normal bowel sounds, soft, nontender, no hepatosplenomegaly Musculoskeletal: Extremities: extremities normal to inspection; no cyanosis and no clubbing Skin: no rashes, warm and dry Neurologic: moves all extremities and awake; no focal motor deficits Psychiatric: Orientation: alert, oriented x 3 and cooperative Eye Contact: good eye contact Speech: normal rate/rhythm/volume of speech Affect: + anxious affect and + tearful affect Mood: + anxious mood Thought Process: goal directed thought process Lymphatic: no lymphedema Results & Data Results & Data ([facility]) Vital Signs (Past 12 Hours) Vital Signs Temp Pulse Resp BP Pulse Ox 05/24/19 18:01 74 23 210/98 H 05/24/19 17:30 70 16 190/93 H 97 05/24/19 17:00 64 14 185/82 H 05/24/19 16:33 66 18 202/93 H 96 05/24/19 16:30 64 15 05/24/19 16:00 71 14 05/24/19 15:59 97 05/24/19 14:54 75 20 197/92 H 98 05/24/19 14:41 36.9 C 81 20 210/97 H 99 Laboratory Results 05/24/19 05/24/19 05/24/19 Range/Units 16:35 16:35 16:35 WBC 6.51 (4.8-10.8) K/uL RBC 4.35 (4.2-5.4) M/uL Hgb 12.9 (12.0-16.0) g/dL Hct 38.0 (37-47) % MCV 87.4 (80-100) fL MCH 29.7 (25-34) pg MCHC 33.9 (32-36) g/dL RDW Std Deviation 45.3 (36.4-46.3) fL RDW Coeff of Sara 14.0 (11.5-14.5) % Plt Count 146 (130-400) K/uL MPV 9.8 (7.4-10.4) fL Immature Gran % (Auto) 0.3 % Neut % (Auto) 60.1 % Lymph % (Auto) 26.7 % [place] % (Auto) 8.9 % Eos % (Auto) 3.8 % Baso % (Auto) 0.2 % Immature Gran # (Auto) 0.02 (0.00-0.02) K/uL Neut # (Auto) 3.91 (1.4-6.5) K/uL Lymph # (Auto) 1.74 (1.2-3.4) K/uL [place] # (Auto) 0.58 (0.11-0.59) K/uL Eos # (Auto) 0.25 (0-0.5) K/uL Baso # (Auto) 0.01 (0-0.2) K/uL PT 11.4 (9.0-12.0) Seconds INR 1.1 (0.9-1.1) APTT 24.4 (21.0-31.0) Seconds PTT Ratio 0.9 Sodium 142 (136-145) mmol/L Potassium 3.7 (3.5-5.1) mmol/L Chloride 113 H (98-107) mmol/L Carbon Dioxide 25 (21-32) mmol/L Anion Gap 4.0 (3-11) BUN 16 (7-18) mg/dl Creatinine 0.68 (0.6-1.2) mg/dl Est Cr Clr Drug Dosing 64.4 ml/min Est GFR ( Amer) 99.2 Est GFR (Non-Af Amer) 85.6 BUN/Creatinine Ratio 23.3 H (10-20) Glucose 104 H (70-99) mg/dl Calcium 9.6 (8.5-10.1) mg/dl Troponin I < 0.015 (0-0.045) ng/ml Lipase 67 L (73-393) U/L Diagnostic Findings CXR reviewed and agree with the report as below: XR chest 2V PA/lateral CLINICAL HISTORY: 74 years-old Female presenting with Chest Pain. TECHNIQUE: PA and lateral views of the chest were obtained. COMPARISON: 11/12/2016. FINDINGS: Atherosclerosis of the aortic arch. Cardiac silhouette mildly enlarged. Lungs are hyperinflated. No focal opacity. No pleural effusion or pneumothorax. Degenerative changes of the thoracic spine. Exaggerated thoracic kyphosis. Upper abdomen normal. IMPRESSION: 1. Mild cardiomegaly. 2. Hyperinflation may indicate emphysema or relate to exaggerated thoracic kyphosis. 3. No focal infiltrate to suggest pneumonia or edema. ECG Additional Comments: NSR, ?TWI leads II and aVF Code Status & VTE Plan Code Status FULL CODE VTE Prophylaxis Plan VTE Prophylaxis will be ordered: Yes Coding Level of Care Code 21375 OBS Care - Level 3 Diagnoses Chest pain R07.9 Chest pain type: unspecified Hypertension I10 Hyperlipidemia E78.5 Urinary incontinence R32 DVT prophylaxis Z29.9 (1) Chest pain Chest pain type: unspecified Qualified Code(s): R07.9 - Chest pain, unspecified
[2019-05-24] MEDS: carvediloL 12.5 MG TAB PO SCH (18:56)
[2019-05-24] MEDS ORDERED: ALUMINUM/MAGNESIUM SUSP 30 ML UDC PO PRN (19:43)
[2019-05-24] MEDS ORDERED: ONDANSETRON INJ 2 MG/ML 2 ML VIAL IV PRN (19:43)
[2019-05-24] MEDS ORDERED: MoRPHine SULFATE 2 MG/ML CARP IV PRN (19:43)
[2019-05-24] MEDS ORDERED: NITROGLYCERIN SL 0.4 MG/TAB TAB SL PRN (19:43)
[2019-05-24] MEDS ORDERED: OXYBUTYNIN CHLORIDE XL 5 MG TABCR PO PRN (19:43)
[2019-05-24 19:49] LABS: Albumin Level 3.5 gm/dl (3.4-5.0); Bilirubin Direct 0.1 mg/dl (0-0.2); Bilirubin,Total 0.6 mg/dl (0.2-1); Total Protein 6.7 gm/dl (6.4-8.2)
[2019-05-24] MEDS ORDERED: ENOXAPARIN INJ 40 MG/0.4 ML SYR SQ SCH (20:00)
[2019-05-24] MEDS: FAMOTIDINE 20 MG TAB PO SCH (20:27)
[2019-05-24] MEDS: ACETAMINOPHEN 325 MG TAB PO PRN (20:30)
[2019-05-24] MEDS ORDERED: ATORVASTATIN 40 MG TAB PO SCH (21:00)
[2019-05-25] MEDS: ACETAMINOPHEN 325 MG TAB PO PRN (03:30)
[2019-05-25 04:56] LABS: Anion Gap 0 (3-11); Blood Urea Nitrogen 12 mg/dl (7-18); Calcium 9.2 mg/dl (8.5-10.1); Carbon Dioxide 26 mmol/L (21-32); Chloride 114 mmol/L (98-107); Creatinine Clr Calc Pharmacy 62.9 ml/min; Est GFR (African American) 93.4; Est GFR (Non-African American) 80.6; Glucose 159 mg/dl (70-99); Potassium 3.6 mmol/L (3.5-5.1); Sodium 140 mmol/L (136-145)
[2019-05-25 05:01] LABS: Chol HDL Ratio 3; Cholesterol 113 mg/dl (0-200); HDL Cholesterol 44 mg/dl; LDL Cholesterol Calculated 44 mg/dl; Triglycerides 126 mg/dl (0-150); Troponin I < 0.015 ng/ml (0-0.045); VLDL Cholesterol 25 mg/dl
[2019-05-25] MEDS: carvediloL 12.5 MG TAB PO SCH (08:12)
[2019-05-25] MEDS: FAMOTIDINE 20 MG TAB PO SCH (08:12)
[2019-05-25] MEDS ORDERED: lisinopriL 5 MG TAB PO STA (08:48)
[2019-05-25] MEDS ORDERED: ASPIRIN 81 MG ECTAB PO SCH (09:00)
[2019-05-25] MEDS ORDERED: lisinopriL 5 MG TAB PO SCH (09:00)
--- NOTE | 2019-05-25 10:09 | Electrocardiogram Report ---
Test Reason : Blood Pressure : / mmHG Vent. Rate : 078 BPM Atrial Rate : 078 BPM P-R Int : 174 ms QRS Dur : 088 ms QT Int : 412 ms P-R-T Axes : 059 -07 -09 degrees QTc Int : 469 ms Normal sinus rhythm Nonspecific T wave abnormality Anterior leads Abnormal ECG When compared with ECG of 24-MAY-2019 14:50, No significant change was found Confirmed by Matthew Suresh ([id number]) on 05/25/2019 10:09:12 AM Referred By: REFERRED SELF Confirmed By:Matthew Suresh
--- NOTE | 2019-05-25 13:35 | XCELERA ---
[id number] \\[id number]
--- NOTE | 2019-05-25 13:51 | Cardiology Consultation ---
Date of Consultation May 25, 2019 History of Present Illness Attending Physician: Keshia Carmichael MD Allergies Allergy/AdvReac Type Severity Reaction Status Date / Time No Known Allergies Allergy Unknown Verified 04/30/19 11:23 Home Medications Home Medications Medication Instructions Recorded Confirmed Type aspirin 81 mg PO QAM 04/30/19 05/24/19 History atorvastatin 40 mg PO HS 04/30/19 05/24/19 History carvedilol 12.5 mg PO BID 04/30/19 05/24/19 History lisinopril 5 mg PO QAM 04/30/19 05/24/19 History meclizine 25 mg PO TID PRN #14 tab 04/30/19 05/24/19 Rx oxybutynin chloride 5 mg PO BID PRN 04/30/19 05/24/19 History BJ-DI-smhjth/OV-oxlzvk-lkylzvs 2 cap PO AMPM PRN 05/24/19 05/24/19 History [Vicks DayQuil-NyQuil] Patient History Medical History Hyperlipidemia Hypertension (Chronic) No pertinent family history Precordial chest pain Urinary incontinence Vertigo Surgical History H/O heart artery stent Family History Father , Unsure of reason No problems noted. Mother , age 48 from ruptured ventral hernia complications No problems noted. 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[employer]; [employer] Feels Safe at Home: Yes Smoking Status: Never smoker Hx Alcohol Use: No Hx Substance Use: No Results & Data ([facility]) Vital Signs (Past 12 Hours) Vital Signs Temp Pulse Pulse Resp BP BP Pulse Ox 05/25/19 11:25 98.4 F 65 18 167/88 H 96 05/25/19 09:54 97.7 F 77 20 152/88 H 95 04/11/20 08:52 98.1 F 78 18 186/89 H 95 05/25/19 08:42 72 05/25/19 04:25 98.4 F 68 20 167/91 H 95 05/25/19 02:50 73 Laboratory Results 05/24/19 05/24/19 05/24/19 16:35 16:35 22:23 WBC 6.51 Hgb 12.9 Creatinine Troponin I < 0.015 < 0.015 LDL Cholesterol, Calc 05/25/19 04:23 WBC Hgb Creatinine 0.73 Troponin I LDL Cholesterol, Calc 44 PG Care Time/CCT Total # of Minutes Spent Total Time Spent with Patient: Total time spent is greater than 50% in coor dination of care (as documented) at patient's floor/unit and/or counseling patient: Coding
--- NOTE | 2019-05-25 13:53 | Cardiology Consultation ---
Date of Consultation May 25, 2019 Assessment & Plan (1) CAD (coronary artery disease): (2) Nausea: (3) Chest pain: (4) Hypertension: (5) H/O heart artery stent: Symptoms more suggestive of gastrointestinal phenomenon than cardiac ischemia, particularly given lack of dynamic ECG changes or enzyme elevation. 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 Even if her symptoms were ultimately found to be anginal, she is not demonstrating any of the high risk indicators such as dynamic ECG, enzyme elevation, or refractory/progressive symptoms. Given her persistent hypertension, would recommend increasing her carvedilol from 12.5 mg twice daily to 25 mg twice daily. If she does have any supply/demand type angina, improved blood pressure control will be helpful. In addition, discussed at length the utility of using as needed sublingual nitroglycerin if she were to have any further chest symptoms or potentially even nausea (if this were an anginal equivalent), in addition it will help mitigate any acute blood pressure elevations caused by anxiety. She did have an outpatient stress study planned by Dr. Azar, could proceed with this to further risk stratify. 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 Case discussed with Dr. Carmichael. Thank you for this consultation. History of Present Illness Reason for Consultation: Chest pain Requesting Physician: Keshia Carmichael MD Attending Physician: Keshia Carmichael MD History of Present Illness 74-year-old woman with known coronary artery disease (2 stents placed 2004, further details uncertain, followed by Dr. Azar) who was admitted yesterday after noting symptoms of nausea and possibly chest discomfort. Initial history describes substernal and left-sided chest pain associated with loose stools occurring 2 or 3 times and resolving after a bowel movement. When I spoke with her, she had difficulty articulating that she had had any chest pain, noting more of a sense of nausea which was fairly pronounced but which did not result in vomiting. Since she did not describe the symptoms as feeling anginal, she did not take any sublingual nitroglycerin. She noted that her blood pressure was elevated at home, she became more anxious and reported to the emergency department and was admitted. Serial ECGs and enzymes are negative for myocardial ischemia. At the time of my evaluation, she had not had any recurrent symptoms overnight or this morning and she felt well. She was anxious to return home to her dog. Allergies Allergy/AdvReac Type Severity Reaction Status Date / Time No Known Allergies Allergy Unknown Verified 04/30/19 11:23 Home Medications Home Medications Medication Instructions Recorded Confirmed Type aspirin 81 mg PO QAM 04/30/19 05/24/19 History atorvastatin 40 mg PO HS 04/30/19 05/24/19 History carvedilol 12.5 mg PO BID 04/30/19 05/24/19 History lisinopril 5 mg PO QAM 04/30/19 05/24/19 History meclizine 25 mg PO TID PRN #14 tab 04/30/19 05/24/19 Rx oxybutynin chloride 5 mg PO BID PRN 04/30/19 05/24/19 History AC-UI-fcrbcl/PE-xqfdux-ejkbcdg 2 cap PO AMPM PRN 05/24/19 05/24/19 History [Vicks DayQuil-NyQuil] Patient History Medical History Hyperlipidemia Hypertension (Chronic) No pertinent family history Precordial chest pain Urinary incontinence Vertigo Surgical History H/O heart artery stent Family History Brother Father, Unsure of reason Mother, age 48 from ruptured ventral hernia complications Cancer Brother Social History Preferred Language: Slovak Communication Ability: Effective 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 Tool Required: No Beliefs That Will Affect Care: None Current Living Situation: Alone current occupational status: retired 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[employer]; [employer] Feels Safe at Home: Yes Smoking Status: Never smoker Hx Alcohol Use: No Hx Substance Use: No Review of Systems Constitutional: + fatigue; no fever, no chills, no weight loss and no weight gain Eyes: no problem reported Ear, Nose, Mouth, Throat: no problem reported Respiratory: no cough and no dyspnea Cardiovascular: as per Subjective / HPI Gastrointestinal: + change in stools; no abdominal pain Genitourinary: no problem reported Musculoskeletal: no myalgia Integumentary: no rash and no new lesions Neurologic: no falls and no syncope Psychiatric: no problem reported Hematologic / Lymphatic: no easy bleeding and no easy bruising Physical Exam Physical Exam: Elderly white female who appears comfortable. Afebrile. BP mild to moderately hypertensive. Pulse 6070s. Normal respiratory rate. Skin: No petechia or generalized lesions. HEENT: Unremarkable. Neck: No carotid bruits or JVD. Lungs: Clear and equal breath sounds bilaterally. Cardiac: Regular rhythm, normal S1 and S2, no murmur, rub, or gallop. Chest wall: Nontender. Abdomen: Soft nontender. Extremities: No edema, pulses intact. Neurologic: Normal affect, nonfocal. Results & Data ([facility]) Vital Signs (Past 12 Hours) Vital Signs Temp Pulse Pulse Resp BP BP Pulse Ox 05/25/19 11:25 98.4 F 65 18 167/88 H 96 05/25/19 09:54 97.7 F 77 20 152/88 H 95 05/25/19 08:52 98.1 F 78 18 186/89 H 95 05/25/19 08:42 72 05/25/19 04:25 98.4 F 68 20 167/91 H 95 05/25/19 02:50 73 Laboratory Results 05/24/19 05/24/19 05/25/19 16:35 22:23 04:23 Creatinine 0.73 Troponin I < 0.015 < 0.015 < 0.015 LDL Cholesterol, Calc 44 Diagnostic Findings ECG on admission showed sinus rhythm with LVH and nonspecific T wave flattening with appropriately inverted T waves inferiorly (concordant with QRS). Compared with 2017 ECG, T wave inversion in anterior leads no longer present. Repeat ECG this morning showed no significant change. Chest x-ray on admission showed mild cardiomegaly, hyperinflation, no acute process. 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 All other dyson move normally. Mild mitral regurgitation with mildly dilated left atrium. PG Care Time/CCT Total # of Minutes Spent Total Time Spent with Patient: Total time spent is greater than 50% in coordination of care (as documented) at patient's floor/unit and/or counseling patient: Coding Level of Care Code 17137 Initial Inpt Care Lvl 3 Diagnoses CAD (coronary artery disease) I25.10 Nausea R11.0 Chest pain R07.9 Chest pain type: unspecified Hypertension I10 H/O heart artery stent Z95.5 (1) Chest pain Chest pain type: unspecified Qualified Code(s): R07.9 - Chest pain, unspecified
[2019-05-25] MEDS ORDERED: carvediloL 6.25 MG TAB PO ONE (14:41)
--- NOTE | 2019-05-25 15:09 | Discharge Summary ---
Date of Service May 25, 2019 Admission HPI Per Admitting Provider This pt is a 74 yo female with a h/o CAD s/p stent placement x 2 in approx 2004, HTN, overactive bladder, and recent vertigo, who presents with atypical chest pain. SHe reports she started having substernal chest pain and some left sided chest pain that felt like indigestion and was associated with a loose stool each time today. This occurred 2 or 3 times and chest pains went away after having a BM each time. Stool nonbloody, no abdominal pain, no nausea or vomiting. She did not try taking anything at home for her symptoms. She reports she started thinking about what would happen to her dogs/animals if something happened to her given her cardiac history and this made her symptoms worse. Each time, the symptoms went away on their own. Denies SOB, diaphoresis, no leg swelling. Denies any recent coughs, cold symptoms, no fevers/chills/sweats. She has been isolated in her house for weeks and lives alone. Her son does come to bring her groceries and check on her and he also has not been sick and has been socially isolated. In the ER, she had a normal chest xray, normal ECG, normal labs including negative troponin. She will be admitted for a workup to rule out cardiac cause of chest pain. Principal Diagnosis Atypical chest pain Discharge Exam Constitutional WD/WN, vitals as above Eyes + anicteric sclerae ENMT external ear and nose normal, oropharynx normal Neck trachea midline, no thyromegaly Respiratory normal respiratory effort, lungs clear to auscultation Cardiovascular RRR, no murmur, no edema Vessels: no JVD Chest (Breasts) Chest: normal inspection of chest Gastrointestinal (Abdomen) normal bowel sounds, soft, nontender, no hepatosplenomegaly Musculoskeletal Extremities: extremities normal to inspection; no cyanosis and no clubbing Skin no rashes, warm and dry Neurologic moves all extremities and awake; no focal motor deficits Psychiatric Orientation: alert, oriented x 3 and cooperative Eye Contact: good eye contact Speech: normal rate/rhythm/volume of speech Thought Process: goal directed thought process Lymphatic no lymphedema Discharge Data Allergies Allergy/AdvReac Type Severity Reaction Status Date / Time No Known Allergies Allergy Unknown Verified 04/30/19 11:23 Consultations 05/24/19 17:26 ED Decision to Admit Stat 05/24/19 19:43 Consult Cardiology Routine Ordered Studies CXR ECHO Hospital Course (1) Chest pain: Atypical chest pain, associated with burning and loose stools and then resolves, related to anxiety as well No melena or hematochezia With history of CAD and stents 2004 ECG negative, troponin serially negative x 3 She had no further chest pains after admission -no arrhythmia on monitoring - ECHO with low normal EF and with inferobasal and basal septal akinesis and thinning consistent with old infarct -Cardiology consult appreciated--> noncardiac chest pain, no need for inpatient stress test; 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 -Cardiology also recommends improved BP control--> increased Coreg to 25mg po bid -trial of Pepcid 20mg po bid as seems GI in nature--> she has had no further chest pains since admission after starting Pepcid--> continue Pepcid x 2 weeks -continue home lisinopril, statin-lipids good Stable for dc to home (2) Hypertension: With hypertensive urgency, BP 210/93 in ER Secondary to anxiety -improved after admission and with increased dose of Coreg, gave extra dose of lisinopril as well x 1 (3) Hyperlipidemia: continue statin -lipids good here (4) Urinary incontinence: -continue oxybutynin (5) DVT prophylaxis: Lovenox SQ, SCDs Dispo- dc to home Total Time Total Time Spent Total Time Spent (In Minutes): 40 min Total Time Includes: Examination of the Patient, Discharge Planning, Medication Reconciliation and Communication With Other Providers (Cardiology) Discharge Plan Discharge Items Patient Disposition: Home - Self-Care Reason For Visit: CHEST PAIN Discharge Diagnosis: Atypical chest pain-noncardiac Hypertensive urgency Condition on Discharge: Good Activity: Resume your previous activity Non-emergency contact: Primary Care Provider and Swimming Pool Maintenance Call non-emergency contact if: you have any medication questions, your symptoms worsen, your pain is not controlled, your pain is worsening, your pain is un usual for you and your pain is concerning for you Follow-up/Referrals: Tanisha Burnett D.O. [Primary Care Provider] - (Please call for a follow up appointment within 2-3 weeks ) Diet: Heart Healthy Addtl Attending Provider Instructions: You were admitted with chest pains that are likely coming from acid reflux. Your pain resolved with taking pepcid and you can continue on this twice a day for 2 weeks. The Echocardiogram of your heart and all the blood tests showed that you were NOT having another heart attack. Please follow up with Dr. Azar (your Swimming Pool Maintenance) to reschedule your cardiac stress test if he deems necessary. Your blood pressure was very high here and your Coreg (carvedilol) dose was increased to 25mg twice a day. If you have chest pain that feels like your prior heart attack, please take nitroglycerin and call your Swimming Pool Maintenance or go to the hospital. Pending Studies at Discharge: No Stand-Alone Forms: [facility] Medications and DC Order Prescriptions: New famotidine 20 mg Tablet 20 mg PO BID Qty: 60 RF: 0 carvedilol 25 mg tablet 25 mg PO BID Qty: 180 RF: 0 Continued meclizine 25 mg tablet 25 mg PO TID PRN (Reason: dizziness) Qty: 14 RF: 0 atorvastatin 40 mg tablet 40 mg PO HS RF: 0 oxybutynin chloride 5 mg tablet extended release 24hr 5 mg PO BID PRN (Reason: OVER ACTIVE BLADDER) RF: 0 lisinopril 5 mg tablet 5 mg PO QAM RF: 0 aspirin 81 mg Tablet,Delayed Release (Dr/Ec) 81 mg PO QAM RF: 0 Discontinued carvedilol 12.5 mg tablet 12.5 mg PO BID RF: 0 Vicks DayQuil-NyQuil 10-5-325mg(d)/ 15-325-6.25mg Capsule, Sequential 2 cap PO AMPM PRN (Reason: cold/flu symptoms) RF: 0 Discharge Orders: Discharge Order (Routine); Ordered 05/25/19 Ordered By: Keshia Carmichael Admission Data Admit Date/Time: 05/24/19 18:34 Attending Provider: Keshia Carmichael Admit Provider: Keshia Carmichael Primary Care Provider: Tanisha Burnett Other Providers: Matthew Suresh Other Interventions: Discharge Summary Assessment (RN) Last Done: 05/25/19 14:50 DC Date/Time DO NOT enter until pt leaves facility: 05/25/19 15:21 Coding Level of Care Code 79282 OBS Care - Discharge Diagnoses Chest pain R07.9 Chest pain type: unspecified Hypertension I10 Hyperlipidemia E78.5 Urinary incontinence R32 DVT prophylaxis Z29.9
[2019-05-25] MEDS ORDERED: carvediloL 12.5 MG TAB PO SCH (21:00)
[2019-05-26] MEDS ORDERED: lisinopriL 10 MG TAB PO SCH (09:00)
== END 2019-05-25 15:21 | disposition home or self-care (01) ==
LOC: 2N 14:33 → ED 14:33 → 2N 19:37

== ENCOUNTER 2019-12-23 19:08 | Inpatient (IN) ==
[2019-12-23] MEDS ORDERED: ACETAMINOPHEN 1,000 MG/100 ML VIAL IV STA (19:40)
[2019-12-23] MEDS ORDERED: SODIUM CHLORIDE 0.9% 1000ML 1,000 ML IV ONE (19:41)
[2019-12-23 20:18] LABS: Hematocrit (blood only) 37.5 % (37-47); Hemoglobin 12.7 g/dL (12.0-16.0); Immature Granulocytes # (auto) 0.03 K/uL (0.00-0.02); Immature Granulocytes % (auto) 0.3 %; Lymphocytes # (auto) 0.51 K/uL (1.2-3.4); Lymphocytes % (auto) 5.7 %; Mean Corpuscular Hemoglobin 29.7 pg (25-34); Mean Corpuscular Hgb Conc 33.9 g/dL (32-36); Mean Corpuscular Volume 87.6 fL (80-100); Mean Platelet Volume 9.8 fL (7.4-10.4); Monocytes # (auto) 0.36 K/uL (0.11-0.59); Monocytes % (auto) 4.1 %; Neutrophils # (auto) 7.98 K/uL (1.4-6.5); Neutrophils % (auto) 89.9 %; Platelet Count 104 K/uL (130-400); RDW Coefficient of Variation 13.4 % (11.5-14.5); Red Blood Count 4.28 M/uL (4.2-5.4); White Blood Count 8.88 K/uL (4.8-10.8)
[2019-12-23 20:45] LABS: Appearance Urine Clear (Clear); Bacteria Urine Automated Negative (Negative); Bilirubin Urine Negative (Negative); Blood Urine Trace (Negative); Color Urine Yellow; Glucose Urine UA Negative (Negative); Ketones Urine 1+ (Negative); Leukocyte Esterase Urine 1+ (Negative); Nitrite Urine Negative (Negative); Protein Urine Trace (Negative); RBC Urine Automated 0-4 /hpf (0-4); Specific Gravity Urine 1.021 (1.000-1.030); Urobilinogen Urine Negative (Negative)
--- NOTE | 2019-12-23 20:48 | Emergency Department Note ---
History of Present Illness General Chief complaint: Flu Like Symptoms Stated complaint: VOMTING, CHILLS, BACK ACHE Time Seen by Provider: 12/23/19 19:38 History of Present Illness Provider complaint: Fever and body aches Onset (ago): day(s) 1 Associated symptoms: + cough, + fever/chills, + malaise and + nausea/vomiting; no confusion, no chest pain, no headaches and no shortness of breath 74-year-old female presents emergency department for fever and body aches. Patient states her symptoms began today. She states she is having generalized body aches. She reports fever starting today. She reports some mild nausea. She also reports urinary frequency. No cough. No loss of taste or smell. No sore throat. No exposure to anyone who is COVID-19 positive or person of interest. Home Medications Home Medications Medication Instructions Recorded Confirmed Type aspirin 81 mg PO QAM 04/30/19 12/23/19 History atorvastatin 40 mg PO HS 04/30/19 12/23/19 History lisinopril 5 mg PO QAM 04/30/19 12/23/19 History oxybutynin chloride 5 mg PO BID PRN 04/30/19 12/23/19 History carvedilol 25 mg PO BID #180 tab 05/25/19 12/23/19 Rx Allergies Allergy/AdvReac Type Severity Reaction Status Date / Time No Known Allergies Allergy Unknown Verified 12/23/19 22:26 Past Med/Surg History Medical History (Updated 12/23/19 @ 23:58 by Kilo Morataya) Hyperlipidemia Hypertension No pertinent family history Precordial chest pain Urinary incontinence Vertigo Surgical History H/O heart artery stent Family History Father , Unsure of reason No problems noted. Mother , age 48 from ruptured ventral hernia complications No problems noted. Brother Cancer Social History Smoking Status: Never smoker Hx Alcohol Use: No Hx Substance Use: No Preferred Language: Beninese Communication Ability: Effective Tonguer Required: No Beliefs That Will Affect Care: None Current Living Situation: Alone current occupational status: retired current occupation: worked in [employer] at [employer] Feels Safe at Home: Yes Assistive Devices: Denture - Upper and Glasses Review of Systems A total of 10 systems reviewed and were otherwise negative Physical Exam Vital Signs Vital Signs - 24 hr 12/23/19 19:30 12/23/19 19:43 12/23/19 19:44 Temperature 39.4 C H Temperature Source Oral Pulse Rate 118 H 106 H Pulse Rate from SpO2 Sensor 102 H Respiratory Rate 20 32 H Respiratory Effort / Characteristics Non-Labored Respiratory Depth Normal Blood Pressure 141/73 H 140/77 Blood Pressure Mean 95 92 Pulse Oximetry 95 94 93 Oxygen Delivery Method Room Air Room Air Sepsis Recent Fever Within 48 Hours Yes Sepsis New/Unexplained Change in Mental Status N/A Sepsis Action Taken by Nursing Physician Notified 12/23/19 20:28 12/23/19 20:30 12/23/19 20:33 Temperature Temperature Source Pulse Rate 119 H 119 H Pulse Rate from SpO2 Sensor 118 H 118 H Respiratory Rate 20 25 H Respiratory Effort / Characteristics Non-Labored Respiratory Depth Blood Pressure 124/71 134/75 Blood Pressure Mean 93 92 Pulse Oximetry 94 95 95 Oxygen Delivery Method Room Air Room Air Room Air Sepsis Recent Fever Within 48 Hours Sepsis New/Unexplained Change in Mental Status Sepsis Action Taken by Nursing 12/23/19 21:20 12/23/19 21:30 12/23/19 22:00 Temperature 37.9 C H Temperature Source Oral Pulse Rate 93 H 95 H Pulse Rate from SpO2 Sensor 93 H 93 H Respiratory Rate 24 22 Respiratory Effort / Characteristics Respiratory Depth Blood Pressure 101/62 108/57 L Blood Pressure Mean 75 71 Pulse Oximetry 91 92 Oxygen Delivery Method Sepsis Recent Fever Within 48 Hours Sepsis New/Unexplained Change in Mental Status Sepsis Action Taken by Nursing 12/23/19 22:30 12/23/19 23:00 12/23/19 23:30 Temperature Temperature Source Pulse Rate 89 87 83 Pulse Rate from SpO2 Sensor 94 H 87 84 Respiratory Rate 21 19 19 Respiratory Effort / Characteristics Respiratory Depth Blood Pressure 96/50 L 96/55 L 103/53 L Blood Pressure Mean 76 76 57 Pulse Oximetry 94 92 92 Oxygen Delivery Method Room Air Room Air Room Air Sepsis Recent Fever Within 48 Hours Sepsis New/Unexplained Change in Mental Status Sepsis Action Taken by Nursing Physical Exam GENERAL: She is oriented to person, place, and time. She appears well-developed and well-nourished. She does not appear distressed. HENT: Exam performed. -Head: Normocephalic and atraumatic. -Right Ear: External ear normal. No mastoid tenderness. -Left Ear: External ear normal. No mastoid tenderness. -Mouth/Throat: The oropharynx is clear and moist. No trismus in the jaw. No dental abscesses or uvula swelling. No oropharyngeal exudate or tonsillar abscesses. EYES: Conjunctivae and EOM are normal. Pupils are equal, round, and reactive to light. Right eye exhibits no discharge. Left eye exhibits no discharge. No scleral icterus. NECK: Normal range of motion. Neck supple. No JVD present. No spinous process tenderness present. No carotid bruit present. No rigidity. No tracheal deviation and normal range of motion present. No Brudzinski's sign and no Kernig's sign noted. CV: Tachycardic rate, regular rhythm, normal heart sounds and intact distal pulses. There is no peripheral edema. Palpable radial pulses bue. PULM/CHEST: Effort normal and breath sounds normal. No respiratory distress. No stridor. She has no wheezes. She has no rales. -Chest Wall: She exhibits no tenderness. ABD: The abdomen is soft. Bowel sounds are normal. She has no distension. No mass is present. There is no tenderness. There is no rebound, no guarding, no Cade's sign and no tenderness at McBurney's point. Rovsig negative MUSC/SKEL: Normal range of motion. There is no peripheral edema, tenderness or deformity. LYMPH: No cervical adenopathy. NEURO: She is alert and oriented to person, place, and time. She has normal strength. No cranial nerve deficit or sensory deficit. Coordination and gait normal. GCS eye subscore is 4. GCS verbal subscore is 5. GCS motor subscore is 6. Cerebellar tests wnl. SKIN: Skin is warm and dry. She is not diaphoretic. PSYCH: She has a normal mood and affect. Behavior is normal. Judgment and thought content normal. Course Course 193: The patient was evaluated in room A2. A complete history and physical exam was performed. Patient was seen in full airborne precautions with N95, gown, glove, face shield by myself and staff. Patient will be tested for COVID-19 given her fever and body aches. Cardiac monitoring: An order was placed for continuous cardiac monitoring. The monitor shows a rate of 105 with sinus tachycardia rhythm 2145: Vital signs stable. Labs show a magnesium 1.5. Repletion was started in the emergency department. Creatinine of 1.4, almost doubled at her baseline. Elevated procalcitonin level of 1.22. Urinalysis and chest x-ray negative for source of infection. Given the patient's fever, tachycardia, and elevated procalcitonin level the patient was treated with broad-spectrum antibiotics V anco [facility]. Administered Medications Vancomycin HCl 1,500 mg/ (Sodium Chloride) 530 mls @ 200 mls/hr IV NOW ONE Stop: 12/24/19 00:19 Last Admin: 12/23/19 22:40 Dose: 200 mls/hr Documented by: [id number] Discontinued Medications Acetaminophen (Ofirmev) 1,000 mg in 100 mls @ 400 mls/hr IV NOW STA Stop: 12/23/19 19:54 Last Infusion: 12/23/19 20:44 Dose: 0 mls/hr Documented by: [id number] Admin: 12/23/19 20:27 Dose: 400 mls/hr Documented by: [id number] Sodium Chloride (Nss 1000ml) 1,000 mls @ 999 mls/hr IV .Q1H1M ONE Stop: 12/23/19 20:41 Last Infusion: 12/23/19 22:41 Dose: 0 mls/hr Documented by: [id number] Admin: 12/23/19 20:26 Dose: 999 mls/hr Documented by: [id number] Magnesium Sulfate/Dextrose (Magnesium Sulfate / D5w) 1 gm in 100 mls @ 100 mls/hr IV Q1H DESTINY Stop: 12/23/19 23:39 Last Infusion: 12/23/19 23:37 Dose: 0 mls/hr Documented by: [id number] Admin: 12/23/19 22:41 Dose: 100 mls/hr Documented by: [id number] Infusion: 12/23/19 22:41 Dose: 0 mls/hr Documented by: [id number] Admin: 12/23/19 21:46 Dose: 100 mls/hr Documented by: [id number] Cefepime HCl (Maxipime) 2,000 mg in 20 mls @ 5 mls/min IV NOW STA; Protocol Stop: 12/23/19 21:43 Last Admin: 12/23/19 21:47 Dose: 5 mls/min Documented by: [id number] Medical Decision Making Laboratory Data Result diagrams: 12/23/19 20:02 12/23/19 20:04 Lab Results 12/23/19 12/23/19 12/23/19 Range/Units 19:46 19:46 19:46 WBC (4.8-10.8) K/uL RBC (4.2-5.4) M/uL Hgb (12.0-16.0) g/dL Hct (37-47) % MCV (80-100) fL MCH (25-34) pg MCHC (32-36) g/dL RDW Std Deviation (36.4-46.3) fL RDW Coeff of Sara (11.5-14.5) % Plt Count (130-400) K/uL MPV (7.4-10.4) fL Immature Gran % (Auto) % Neut % (Auto) % Lymph % (Auto) % [place] % (Auto) % Eos % (Auto) % Baso % (Auto) % Neut # (Auto) (1.4-6.5) K/uL Lymph # (Auto) (1.2-3.4) K/uL [place] # (Auto) (0.11-0.59) K/uL Eos # (Auto) (0-0.5) K/uL Baso # (Auto) (0-0.2) K/uL Immature Gran # (Auto) (0.00-0.02) K/uL PT INR APTT PTT Ratio Sodium (136-145) mmol/L Potassium (3.5-5.1) mmol/L Chloride (98-107) mmol/L Carbon Dioxide (21-32) mmol/L Anion Gap (3-11) BUN (7-18) mg/dl Creatinine (0.6-1.2) mg/dl Est Cr Clr Drug Dosing ml/min Est GFR ( Amer) Est GFR (Non-Af Amer) BUN/Creatinine Ratio (10-20) Glucose (70-99) mg/dl Lactate (0.4-2.0) mmol/L Calcium (8.5-10.1) mg/dl Magnesium (1.8-2.4) mg/dl Total Bilirubin (0.2-1) mg/dl AST (15-37) U/L ALT (12-78) U/L Alkaline Phosphatase (45-117) U/L Total Creatine Kinase (26-192) U/L Troponin I (0-0.045) ng/ml Total Protein (6.4-8.2) gm/dl Albumin (3.4-5.0) gm/dl Globulin (2.5-4.0) gm/dl Albumin/Globulin Ratio (0.9-2) Procalcitonin (0-0.5) ng/ml Specimen Hemolysis Urine Color Urine Appearance (Clear) Urine pH (4.5-7.5) Ur Specific [place] (1.000-1.030) Urine Protein (Negative) Urine Glucose (UA) (Negative) Urine Ketones (Negative) Urine Blood (Negative) Urine Nitrite (Negative) Urine Bilirubin (Negative) Urine Urobilinogen (Negative) Ur Leukocyte Esterase (Negative) Urine WBC (Auto) (0-5) /hpf Urine RBC (Auto) (0-4) /hpf U Hyaline Cast (Auto) (0-5) /lpf U Epithel Cells (Auto) (0-5) /lpf Urine Bacteria (Auto) (Negative) Adenovirus (PCR) Not Detected (NotDetected) B. pertussis DNA (PCR) Not Detected (NotDetected) B.parapertussis DNA PCR Not Detected (NotDetected) C. pneumoniae DNA (PCR) Not Detected (NotDetected) Coronavirus OC43 (PCR) Not Detected (NotDetected) Coronavirus HKU1 (PCR) Not Detected (NotDetected) Coronavirus 229E (PCR) Not Detected (NotDetected) COVID-19 Eval Order Covid19 Done at [facility] COVID-19 PCR Not Detected Cancelled (NotDetected) Coronavirus NL63 (PCR) Not Detected (NotDetected) Human Metapneumovir PCR Not Detected (NotDetected) Influenza Type A (PCR) Not Detected (NotDetected) Influenza Type B (PCR) Not Detected (NotDetected) M. pneumoniae (PCR) Not Detected (NotDetected) Parainfluenza 1 (PCR) Not Detected (NotDetected) Parainfluenza 2 (PCR) Not Detected (NotDetected) Parainfluenza 3 (PCR) Not Detected (NotDetected) Parainfluenza 4 (PCR) Not Detected (NotDetected) RSV (PCR) Not Detected (NotDetected) Entero/Rhino (PCR) Not Detected (NotDetected) 12/23/19 12/23/19 12/23/19 Range/Units 20:02 20:04 20:04 WBC 8.88 (4.8-10.8) K/uL RBC 4.28 (4.2-5.4) M/uL Hgb 12.7 (12.0-16.0) g/dL Hct 37.5 (37-47) % MCV 87.6 (80-100) fL MCH 29.7 (25-34) pg MCHC 33.9 (32-36) g/dL RDW Std Deviation 43.0 (36.4-46.3) fL RDW Coeff of Sara 13.4 (11.5-14.5) % Plt Count 104 L (130-400) K/uL MPV 9.8 (7.4-10.4) fL Immature Gran % (Auto) 0.3 % Neut % (Auto) 89.9 % Lymph % (Auto) 5.7 % [place] % (Auto) 4.1 % Eos % (Auto) 0.0 % Baso % (Auto) 0.0 % Neut # (Auto) 7.98 H (1.4-6.5) K/uL Lymph # (Auto) 0.51 L (1.2-3.4) K/uL [place] # (Auto) 0.36 (0.11-0.59) K/uL Eos # (Auto) 0.00 (0-0.5) K/uL Baso # (Auto) 0.00 (0-0.2) K/uL Immature Gran # (Auto) 0.03 H (0.00-0.02) K/uL PT Cancelled INR Cancelled APTT Cancelled PTT Ratio Cancelled Sodium 135 L (136-145) mmol/L Potassium 3.7 (3.5-5.1) mmol/L Chloride 105 (98-107) mmol/L Carbon Dioxide 20 L (21-32) mmol/L Anion Gap 10.0 (3-11) BUN 17 (7-18) mg/dl Creatinine 1.40 H (0.6-1.2) mg/dl Est Cr Clr Drug Dosing 31.6 ml/min Est GFR ( Amer) 42.5 Est GFR (Non-Af Amer) 36.7 BUN/Creatinine Ratio 12.2 (10-20) Glucose 146 H (70-99) mg/dl Lactate (0.4-2.0) mmol/L Calcium 9.1 (8.5-10.1) mg/dl Magnesium 1.5 L (1.8-2.4) mg/dl Total Bilirubin 1.4 H (0.2-1) mg/dl AST 50 H (15-37) U/L ALT 46 (12-78) U/L Alkaline Phosphatase 89 (45-117) U/L Total Creatine Kinase 70 (26-192) U/L Troponin I < 0.015 (0-0.045) ng/ml Total Protein 7.2 (6.4-8.2) gm/dl Albumin 3.6 (3.4-5.0) gm/dl Globulin 3.6 (2.5-4.0) gm/dl Albumin/Globulin Ratio 1.0 (0.9-2) Procalcitonin (0-0.5) ng/ml Specimen Hemolysis Urine Color Urine Appearance (Clear) Urine pH (4.5-7.5) Ur Specific [place] (1.000-1.030) Urine Protein (Negative) Urine Glucose (UA) (Negative) Urine Ketones (Negative) Urine Blood (Negative) Urine Nitrite (Negative) Urine Bilirubin (Negative) Urine Urobilinogen (Negative) Ur Leukocyte Esterase (Negative) Urine WBC (Auto) (0-5) /hpf Urine RBC (Auto) (0-4) /hpf U Hyaline Cast (Auto) (0-5) /lpf U Epithel Cells (Auto) (0-5) /lpf Urine Bacteria (Auto) (Negative) Adenovirus (PCR) (NotDetected) B. pertussis DNA (PCR) (NotDetected) B.parapertussis DNA PCR (NotDetected) C. pneumoniae DNA (PCR) (NotDetected) Coronavirus OC43 (PCR) (NotDetected) Coronavirus HKU1 (PCR) (NotDetected) Coronavirus 229E (PCR) (NotDetected) COVID-19 Eval Order COVID-19 PCR (NotDetected) Coronavirus NL63 (PCR) (NotDetected) Human Metapneumovir PCR (NotDetected) Influenza Type A (PCR) (NotDetected) Influenza Type B (PCR) (NotDetected) M. pneumoniae (PCR) (NotDetected) Parainfluenza 1 (PCR) (NotDetected) Parainfluenza 2 (PCR) (NotDetected) Parainfluenza 3 (PCR) (NotDetected) Parainfluenza 4 (PCR) (NotDetected) RSV (PCR) (NotDetected) Entero/Rhino (PCR) (NotDetected) 12/23/19 12/23/19 12/23/19 Range/Units 20:04 20:29 21:08 WBC (4.8-10.8) K/uL RBC (4.2-5.4) M/uL Hgb (12.0-16.0) g/dL Hct (37-47) % MCV (80-100) fL MCH (25-34) pg MCHC (32-36) g/dL RDW Std Deviation (36.4-46.3) fL RDW Coeff of Sara (11.5-14.5) % Plt Count (130-400) K/uL MPV (7.4-10.4) fL Immature Gran % (Auto) % Neut % (Auto) % Lymph % (Auto) % [place] % (Auto) % Eos % (Auto) % Baso % (Auto) % Neut # (Auto) (1.4-6.5) K/uL Lymph # (Auto) (1.2-3.4) K/uL [place] # (Auto) (0.11-0.59) K/uL Eos # (Auto) (0-0.5) K/uL Baso # (Auto) (0-0.2) K/uL Immature Gran # (Auto) (0.00-0.02) K/uL PT INR APTT PTT Ratio Sodium (136-145) mmol/L Potassium (3.5-5.1) mmol/L Chloride (98-107) mmol/L Carbon Dioxide (21-32) mmol/L Anion Gap (3-11) BUN (7-18) mg/dl Creatinine (0.6-1.2) mg/dl Est Cr Clr Drug Dosing ml/min Est GFR ( Amer) Est GFR (Non-Af Amer) BUN/Creatinine Ratio (10-20) Glucose (70-99) mg/dl Lactate 1.1 (0.4-2.0) mmol/L Calcium (8.5-10.1) mg/dl Magnesium (1.8-2.4) mg/dl Total Bilirubin (0.2-1) mg/dl AST (15-37) U/L ALT (12-78) U/L Alkaline Phosphatase (45-117) U/L Total Creatine Kinase (26-192) U/L Troponin I (0-0.045) ng/ml Total Protein (6.4-8.2) gm/dl Albumin (3.4-5.0) gm/dl Globulin (2.5-4.0) gm/dl Albumin/Globulin Ratio (0.9-2) Procalcitonin 1.22 H (0-0.5) ng/ml Specimen Hemolysis Urine Color Yellow Urine Appearance Clear (Clear) Urine pH 5.0 (4.5-7.5) Ur Specific [place] 1.021 (1.000-1.030) Urine Protein Trace H (Negative) Urine Glucose (UA) Negative (Negative) Urine Ketones 1+ H (Negative) Urine Blood Trace H (Negative) Urine Nitrite Negative (Negative) Urine Bilirubin Negative (Negative) Urine Urobilinogen Negative (Negative) Ur Leukocyte Esterase 1+ H (Negative) Urine WBC (Auto) 10-30 H (0-5) /hpf Urine RBC (Auto) 0-4 (0-4) /hpf U Hyaline Cast (Auto) 1-5 (0-5) /lpf U Epithel Cells (Auto) 10-20 H (0-5) /lpf Urine Bacteria (Auto) Negative (Negative) Adenovirus (PCR) (NotDetected) B. pertussis DNA (PCR) (NotDetected) B.parapertussis DNA PCR (NotDetected) C. pneumoniae DNA (PCR) (NotDetected) Coronavirus OC43 (PCR) (NotDetected) Coronavirus HKU1 (PCR) (NotDetected) Coronavirus 229E (PCR) (NotDetected) COVID-19 Eval Order COVID-19 PCR (NotDetected) Coronavirus NL63 (PCR) (NotDetected) Human Metapneumovir PCR (NotDetected) Influenza Type A (PCR) (NotDetected) Influenza Type B (PCR) (NotDetected) M. pneumoniae (PCR) (NotDetected) Parainfluenza 1 (PCR) (NotDetected) Parainfluenza 2 (PCR) (NotDetected) Parainfluenza 3 (PCR) (NotDetected) Parainfluenza 4 (PCR) (NotDetected) RSV (PCR) (NotDetected) Entero/Rhino (PCR) (NotDetected) Imaging Data Radiologist's Impression: SINGLE VIEW CHEST CLINICAL HISTORY: Sepsis. FINDINGS: An AP, portable, upright chest radiograph is compared to study dated 05/24/2019. The heart is enlarged noting atherosclerotic calcification of the thoracic aorta. There is prominence of the pulmonary vasculature. Atelectasis is noted at the lung bases. No airspace consolidation, large pleural effusion, or pneumothorax is seen. The skeletal structures are osteopenic. The bony thorax is grossly intact. IMPRESSION: 1. Cardiomegaly with prominence of the pulmonary vasculature. Correlate clinically for evidence of mild congestive failure. 2. No airspace consolidation or large pleural effusion is identified. ACT 112: Negative or not required by law. Electronically signed by: Tyson Ellison M.D. 12/23/2019 8:46 PM ECG Data Indication: + vomiting Rate (beats per minute): 106 Rhythm: + sinus tachycardia ECG Intervals/blocks: + Normal QRS, + Normal NC and + Normal QT-c ECG ST segments: + Normal ST segments [facility] Narrative 1938: The patient was evaluated in room A2. A complete history and physical exam was performed. Patient was seen in full airborne precautions with N95, gown, glove, face shield by myself and staff. Patient will be tested for COVID-19 given her fever and body aches. Cardiac monitoring: An order was placed for continuous cardiac monitoring. The monitor shows a rate of 105 with sinus tachycardia rhythm 2145: Vital signs stable. Labs show a magnesium 1.5. Repletion was started in the emergency department. Creatinine of 1.4, almost doubled at her baseline. Elevated procalcitonin level of 1.22. Urinalysis and chest x-ray negative for source of infection. Given the patient's fever, tachycardia, and elevated procalcitonin level the patient was treated with broad-spectrum antibiotics Vanco and [facility]. Impression & Plan Hypomagnesemia, SHABANA (acute kidney injury), Sepsis Discharge Plan Visit Data Chief Complaint: Flu Like Symptoms Stated Complaint: VOMTING, CHILLS, BACK ACHE ED Provider: Kilo Morataya Discharge Problem: Hypomagnesemia, SHABANA (acute kidney injury), Sepsis Patient Disposition: Admitted As Inpatient Discharge Instructions Interventions: ED Discharge Assessment Last Done: 12/23/19 23:48 Forms Stand Alone Forms: My [facility] Prescriptions Prescriptions: No Action atorvastatin 40 mg tablet 40 mg PO HS RF: 0 oxybutynin chloride 5 mg tablet extended release 24hr 5 mg PO BID PRN (Reason: OVER ACTIVE BLADDER) RF: 0 lisinopril 5 mg tablet 5 mg PO QAM RF: 0 aspirin 81 mg Tablet,Delayed Release (Dr/Ec) 81 mg PO QAM RF: 0 carvedilol 25 mg tablet 25 mg PO BID Qty: 180 RF: 0 Referrals Referrals: Tanisha Burnett D.O. [Primary Care Provider] - Discharge Problem: Sepsis Qualifiers: Sepsis type: sepsis due to unspecified organism Sepsis acute organ dysfunction status: unspecified Qualified Code(s): A41.9 - Sepsis, unspecified organism
--- NOTE | 2019-12-23 20:48 | XRay Report ---
SINGLE VIEW CHEST CLINICAL HISTORY: Sepsis. FINDINGS: An AP, portable, upright chest radiograph is compared to study dated 05/24/2019. The heart i s enlarged noting atherosclerotic calcification of the thoracic aorta. There is prominence of the pul monary vasculature. Atelectasis is noted at the lung bases. No airspace consolidation, large pleural effusion, or pneumothorax is seen. The skeletal structures are osteopenic. The bony thorax is grossly intact. IMPRESSION: 1. Cardiomegaly with prominence of the pulmonary vasculature. Correlate clinically for evidence of mi ld congestive failure. 2. No airspace consolidation or large pleural effusion is identified. ACT 112: Negative or not required by law. Electronically signed by: Tyson Ellison M.D. 12/23/2019 8:46 PM
[2019-12-23 21:05] LABS: Alanine Aminotransferase 46 U/L (12-78); Albumin Level 3.6 gm/dl (3.4-5.0); Alkaline Phosphatase 89 U/L (45-117); Aspartate Aminotransferase 50 U/L (15-37); BUN Creatinine Ratio 12.2 (10-20); Bilirubin,Total 1.4 mg/dl (0.2-1); Blood Urea Nitrogen 17 mg/dl (7-18); Calcium 9.1 mg/dl (8.5-10.1); Carbon Dioxide 20 mmol/L (21-32); Chloride 105 mmol/L (98-107); Creatine Kinase 70 U/L (26-192); Creatinine Clr Calc Pharmacy 31.6 ml/min; Est GFR (African American) 42.5; Est GFR (Non-African American) 36.7; Globulin 3.6 gm/dl (2.5-4.0); Glucose 146 mg/dl (70-99); Magnesium 1.5 mg/dl (1.8-2.4); Potassium 3.7 mmol/L (3.5-5.1); Sodium 135 mmol/L (136-145); Total Protein 7.2 gm/dl (6.4-8.2); Troponin I < 0.015 ng/ml (0-0.045)
[2019-12-23 21:13] LABS: Adenovirus PCR Not Detected (NotDetected); Bordetella parapertussis PCR Not Detected (NotDetected); Bordetella pertussis PCR Not Detected (NotDetected); Chlamydia pneumoniae PCR Not Detected (NotDetected); Coronavirus 229E PCR Not Detected (NotDetected); Coronavirus CoV-2 (COVID19)PCR Not Detected (NotDetected); Coronavirus HKU1 PCR Not Detected (NotDetected); Coronavirus NL63 PCR Not Detected (NotDetected); Coronavirus OC43PCR Not Detected (NotDetected); Human Metapneumovirus PCR Not Detected (NotDetected); Influenza A PCR Not Detected (NotDetected); Influenza B PCR Not Detected (NotDetected); Mycoplasma pneumoniae PCR Not Detected (NotDetected); Parainfluenza Virus 1 PCR Not Detected (NotDetected); Parainfluenza Virus 2 PCR Not Detected (NotDetected); Parainfluenza Virus 3 PCR Not Detected (NotDetected); Parainfluenza Virus 4 PCR Not Detected (NotDetected); Respiratory Syncytial VirusPCR Not Detected (NotDetected); Rhinovirus/Enterovirus PCR Not Detected (NotDetected)
[2019-12-23] MEDS ORDERED: CEFEPIME 2,000 MG/20 ML VIAL IV STA (21:40)
[2019-12-23] MEDS ORDERED: VANCOMYCIN HCL 1,500 MG in SODIUM CHLORIDE 0.9% 500 ML IV ONE (21:41)
[2019-12-23] MEDS ORDERED: VANCOMYCIN CONSULT ACTIVE PRN (21:41)
[2019-12-23] MEDS: MAGNESIUM SULFATE / D5W 1 GM/100 ML BAG IV SCH ×2 (21:46→22:41)
--- NOTE | 2019-12-23 22:42 | History & Physical Report ---
Date of Service December 23, 2019 Assessment & Plan (1) Fever: Harini is a 74yo F with PMHx CAD with presents with fever and fatigue Fever - Unclear origin, ddx includes viral and tick borne - Fever to 39.4*F, low platelets, mild transaminitis - No leukocytosis, UA bland. Procal elevated - Recieved empiric cefepime/vanco - No pulmonary symptoms, CXR clear - Lyme + Anaplasma testing pending - Empiric rocephin for tick borne covering pending labs - Viral panel/COVID negative Hypotension - Pt 96/50 on admission, recieved 1L NSS - CXR with mild fluid overload - BP improved on recheck - Follow clinically SHABANA - Sepsis vs prerenal - BMP daily - Hold nephrotoxins CAD - Continue ASA - Contiue Atorv - Held carvidilol for hypotension - Held lisinopril for SHABANA DVT PPx: Heparin Diet: Heart Health Code Status: Full Dispo: Med/Tele (2) CAD (coronary artery disease): (3) DVT prophylaxis: (4) Urinary incontinence: History of Present Illness Primary Care Provider: Tanisha Roy (Judy) She has been quarantined at home. Started to feel very tired a day ago. She did not feel feverish at home, didnt to check her temperature. Her appetite is decreased at baseline, but no changes. No nausea or vomiting. No abdominal pain. No belly pain with food. She had not had any muscle or joint pains. No shortness of breath or difficulty breathing. No cough. No change in sense of smell or taste. She was worried about the fatigue. No numbness of tingling. No joint swelling. No dysuria, polyuria, or oliguria. She goes out walking everyday with her dog. She has not pulled any ticks off of her, but pulls them off her dog frequently. No rashes or bullseye. Waller snot live with anyone, has not had any sick contacts. MedHx: Past PA many years ago. Medications: Reviewed with pt. Last medications this morning. Manges her medications. SHX: Reviewed Allergic: Denies allergies Social: Denies tobacco product use. Denies alcohol use. No recreational drug use. Gets around ok at home. Full Code: Allergies Allergy/AdvReac Type Severity Reaction Status Date / Time No Known Allergies Allergy Unknown Verified 12/23/19 22:26 Home Medications Home Medications Medication Instructions Recorded Confirmed Type aspirin 81 mg PO QAM 04/30/19 12/23/19 History atorvastatin 40 mg PO HS 04/30/19 12/23/19 History lisinopril 5 mg PO QAM 04/30/19 12/23/19 History oxybutynin chloride 5 mg PO BID PRN 04/30/19 12/23/19 History carvedilol 25 mg PO BID #180 tab 05/25/19 12/23/19 Rx Past Med/Surg History Medical History (Updated 12/23/19 @ 23:58 by Kilo Morataya) Hyperlipidemia Hypertension No pertinent family history Precordial chest pain Urinary incontinence Vertigo Surgical History H/O heart artery stent Family History Father , Unsure of reason No problems noted. Mother , age 48 from ruptured ventral hernia complications No problems noted. 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[employer]; [employer] Feels Safe at Home: Yes Safety Concerns: Feels Safe At This Time Assistive Devices: None Review of Systems Review of Systems: Constitutional: See HPI Eyes: Denies double vision, vision change, eye pain ENT: Denies ear pain, sore throat, sinus pain Cardiovascular: Denies chest pain, chest pressure, palpitations, extremity swelling Respiratory: Denies shortness of breath, cough, sputum production, difficulty breathing Gastrointestinal: Denies abdominal pain, nausea, vomiting, constipation, diarrhea Genitourinary: Denies pain with urination, urinary urgency, urinary frequency Musculoskeletal: See HPI Integumentary: Denies rash, lesions, bruising Neurological: Denies headache, numbness, tingling Physical Exam Physical Exam: General: A&Ox3. NAD. Cooperative. HEENT: Atraumatic, normocephalic. Pulm: CTAB A&P. -wheezes, -rales, -rhonchi. Symmetrical chest rise. No increase work of breathing. No respiratory distress. Cardiac: RRR, -mrg. Radial pulses intact and symmetrical. Abdominal: Nontender, nondistended, soft. BS present. CRANIAL NERVES: II: Pupils equal and reactive, no relative afferent pupillary defect, no VF cuts III, IV, : EOM intact, no gaze preference or deviation, no nystagmus. V: normal sensation in V1, V2, and V3 segments bilaterally VII: no asymmetry, no nasolabial fold flattening VIII: normal hearing to speech IX, X: normal palatal elevation, no uvular deviation XI: 5/5 head turn and 5/5 shoulder shrug bilaterally XII: midline tongue protrusion MOTOR: RUE: 5/5 Shoulder internal rotation, external rotation, flexion, extension, abduction, adduction 5/5 Elbow flexion/extension, wrist flexion/extension 5/5 chemical plant operator strength, finger flexion/extension, interosseus LUE: 5/5 Shoulder internal rotation, external rotation, flexion, extension, abduction, adduction 5/5 Elbow flexion/extension, wrist flexion/extension 5/5 chemical plant operator strength, finger flexion/extension, interosseus RLE: 5/5 to hip flexion ankle dorsiflexion/plantarflexion LLE: 5/5 to hip flexion ankle dorsiflexion/plantarflexion SENSORY: Normal to touch in upper and lower extremities without deficit or asymmetry Results & Data Results & Data ([facility]) Vital Signs (Past 12 Hours) Vital Signs Temp Pulse Resp BP Pulse Ox 12/23/19 21:30 93 H 24 101/62 91 12/23/19 21:20 37.9 C H 12/23/19 20:33 95 12/23/19 20:30 119 H 25 H 134/75 95 12/23/19 20:28 119 H 20 124/71 94 12/23/19 19:44 106 H 32 H 140/77 93 12/23/19 19:43 94 12/23/19 19:30 39.4 C H 118 H 20 141/73 H 95 Supervising Physician Co-Signing Physician Notes Attending addendum: I have physically seen this patient, have supervised the medical residents activities, and agree with the H&P unless as otherwise noted. Assessment and Plan: Symptom and sign complex of fever, thrombocytopenia and transaminitis- Follow Lyme anaplasmosis testing Was given vancomycin and cefepime empirically in the ED Admitted on ceftriaxone IV daily. Negative COVID-19 testing. Acute kidney injury- IV fluid rehydration. Repeat BMP and magnesium level in a.m. Hold lisinopril Remaining orders and notations as noted Resident Activity Tracking Resident Involvement: Resident Care Provided Care Provided: Adult Hospital Medicine
[2019-12-24] MEDS ORDERED: OXYBUTYNIN CHLORIDE XL 5 MG TABCR PO PRN (00:24)
[2019-12-24 01:18] LABS: Lyme Ab IgG w/WB Rflx Negative (Negative); Lyme Ab IgM w/WB Rflx Negative (Negative)
[2019-12-24] MEDS: cefTRIAXone SODIUM 1,000 MG in DEXTROSE 5% 50 ML IV SCH (01:27)
[2019-12-24] MEDS: MAGNESIUM OXIDE 400 MG TAB PO SCH ×3 (01:27→20:38)
[2019-12-24] MEDS: ASPIRIN 81 MG ECTAB PO SCH (07:31)
[2019-12-24] MEDS: HEPARIN SOD 5,000 UNIT/0.5 ML VIAL SQ SCH ×2 (07:32→20:39)
--- NOTE | 2019-12-24 11:42 | Electrocardiogram Report ---
Test Reason : Blood Pressure : / mmHG Vent. Rate : 106 BPM Atrial Rate : 106 BPM P-R Int : 148 ms QRS Dur : 090 ms QT Int : 336 ms P-R-T Axes : 019 -21 -18 degrees QTc Int : 446 ms Sinus tachycardia Voltage criteria for left ventricular hypertrophy Nonspecific T wave abnormality Abnormal ECG When compared with ECG of 25-MAY-2019 06:47, No significant change was found Confirmed by Oren Downing ([id number]) on 12/24/2019 11:42:00 AM Referred By: REFERRED SELF Confirmed By:Oren Downing
--- NOTE | 2019-12-24 14:23 | XCELERA ---
[id number] \\[id number]
[2019-12-24] MEDS: ACETAMINOPHEN 325 MG TAB PO PRN (15:47)
[2019-12-24] MEDS: ATORVASTATIN 40 MG TAB PO SCH (20:38)
--- NOTE | 2019-12-24 22:38 | Hospitalist Progress Note ---
Date of Service December 24, 2019 Assessment & Plan (1) Fever: Harini is a 74yo F with PMHx CAD with presents with fever and fatigue Fever secondary to bacteremia. Unsure of cause as of now. -Patient has been afebrile. - Recieved empiric cefepime/vanco - No pulmonary symptoms, CXR clear - Lyme + Anaplasma testing pending - Continue Empiric rocephin - Viral panel/COVID negative Hypotension -BP improved, will monitor. SHABANA - Sepsis vs prerenal - BMP daily - Hold nephrotoxins CAD - Continue ASA - Contiue Atorv DVT PPx: Heparin Diet: Heart Health Code Status: Full Dispo: Med/Tele (2) CAD (coronary artery disease): (3) DVT prophylaxis: (4) Urinary incontinence: Admission and Anticipated Discharge Date Admission Date: December 23, 2019 Subjective 74 yo female reports feeling well. She has no new compaints. Review of Systems Review of Systems: All systems reviewed & are unremarkable except as noted in HPI & below Physical Exam Physical Exam: Constitutional: WD/WN, vitals as above no acute distress Eyes: PERRL, conjunctivae normal, anicteric sclerae ENMT: external ear and nose normal, oropharynx normal Neck: trachea midline, no thyromegaly Respiratory: normal respiratory effort, lungs clear to auscultation Cardiovascular: RRR, no murmur, no edema Vessels: no JVD and no carotid bruit Chest (Breasts): Chest: normal inspection of chest Gastrointestinal (Abdomen): normal bowel sounds, soft, nontender, no hepatosplenomegaly Musculoskeletal: Extremities: extremities normal to inspection; no cyanosis and no clubbing Skin: no rashes, warm and dry Neurologic: moves all extremities and awake; no focal motor deficits Psychiatric: Orientation: alert, oriented x 3 and cooperative Eye Contact: good eye contact Speech: normal rate/rhythm/volume of speech Lymphatic: no lymphedema Results & Data Results & Data ([facility]) Vital Signs (Past 12 Hours) Vital Signs Temp Pulse Pulse Resp BP Pulse Ox 12/24/19 19:51 36.9 C 94 H 18 126/76 94 12/24/19 15:38 38.0 C H 101 H 18 156/79 H 95 12/24/19 15:37 99 H 12/24/19 11:32 37.4 C 94 H 18 148/78 H 95 PG Care Time/CCT Total # of Minutes Spent Total Time Spent with Patient: Total time spent is greater than 50% in coordination of care (as documented) at patient's floor/unit and/or counseling patient: Coding Level of Care Code 06912 Subseq Hosp Care Lvl 3 Diagnoses Fever R50.9 CAD (coronary artery disease) I25.10 DVT prophylaxis Z29.9 Urinary incontinence R32 Time Spent (min) 35
[2019-12-25] MEDS: cefTRIAXone SODIUM 1,000 MG in DEXTROSE 5% 50 ML IV SCH (01:44)
[2019-12-25] MEDS: MAGNESIUM OXIDE 400 MG TAB PO SCH ×2 (07:48→20:57)
[2019-12-25] MEDS: HEPARIN SOD 5,000 UNIT/0.5 ML VIAL SQ SCH ×2 (07:48→20:56)
[2019-12-25] MEDS: ASPIRIN 81 MG ECTAB PO SCH (07:48)
[2019-12-25 10:00] LABS: Basophils # (auto) 0.01 K/uL (0-0.2); Basophils % (auto) 0.2 %; Eosinophils # (auto) 0.04 K/uL (0-0.5); Eosinophils % (auto) 0.8 %; Hematocrit (blood only) 39.1 % (37-47); Hemoglobin 13.1 g/dL (12.0-16.0); Immature Granulocytes # (auto) 0.02 K/uL (0.00-0.02); Immature Granulocytes % (auto) 0.4 %; Lymphocytes # (auto) 0.74 K/uL (1.2-3.4); Lymphocytes % (auto) 14.7 %; Mean Corpuscular Hemoglobin 29.5 pg (25-34); Mean Corpuscular Hgb Conc 33.5 g/dL (32-36); Mean Corpuscular Volume 88.1 fL (80-100); Mean Platelet Volume 10.4 fL (7.4-10.4); Monocytes # (auto) 0.66 K/uL (0.11-0.59); Monocytes % (auto) 13.1 %; Neutrophils # (auto) 3.55 K/uL (1.4-6.5); Neutrophils % (auto) 70.8 %; Platelet Count 124 K/uL (130-400); RDW Coefficient of Variation 13.5 % (11.5-14.5); RDW Standard Deviation 43.6 fL (36.4-46.3); Red Blood Count 4.44 M/uL (4.2-5.4); White Blood Count 5.02 K/uL (4.8-10.8)
[2019-12-25 10:40] LABS: Est GFR (African American) 78.8; Potassium 3.4 mmol/L (3.5-5.1)
[2019-12-25 10:41] LABS: BUN Creatinine Ratio 19.1 (10-20); Calcium 9.6 mg/dl (8.5-10.1); Creatinine Clr Calc Pharmacy 51.8 ml/min
[2019-12-25] MEDS: ATORVASTATIN 40 MG TAB PO SCH (20:57)
--- NOTE | 2019-12-25 22:38 | Hospitalist Progress Note ---
Date of Service December 25, 2019 Assessment & Plan (1) Fever: Harini is a 74yo F with PMHx CAD with presents with fever and fatigue Fever secondary to bacteremia. Unsure of cause as of now. -Patient has been afebrile. - Recieved empiric cefepime/vanco -transitioned to rocephin: 2 gr IV - No pulmonary symptoms, CXR clear - Lyme + Anaplasma testing pending - Continue Empiric rocephin - Viral panel/COVID negative -consulted ID, will obtain a ARLYN. Hypotension -BP improved, will monitor. SHABANA - Sepsis vs prerenal - BMP daily - Hold nephrotoxins CAD - Continue ASA - Contiue Atorv DVT PPx: Heparin Diet: Heart Health Code Status: Full Dispo: Med/Tele (2) CAD (coronary artery disease): (3) DVT prophylaxis: (4) Urinary incontinence: Admission and Anticipated Discharge Date Admission Date: December 23, 2019 Subjective 74 yo female reports feeling well. She has no new symptoms Review of Systems Review of Systems: All systems reviewed & are unremarkable except as noted in HPI & below Physical Exam Physical Exam: Constitutional: WD/WN, vitals as above no acute distress Eyes: PERRL, conjunctivae normal, anicteric sclerae ENMT: external ear and nose normal, oropharynx normal Neck: trachea midline, no thyromegaly Respiratory: normal respiratory effort, lungs clear to auscultation Cardiovascular: RRR, no murmur, no edema Vessels: no JVD and no carotid bruit Chest (Breasts): Chest: normal inspection of chest Gastrointestinal (Abdomen): normal bowel sounds, soft, nontender, no hepatosplenomegaly Musculoskeletal: Extremities: extremities normal to inspection; no cyanosis and no clubbing Skin: no rashes, warm and dry Neurologic: moves all extremities and awake; no focal motor deficits Psychiatric: Orientation: alert, oriented x 3 and cooperative Eye Contact: good eye contact Speech: normal rate/rhythm/volume of speech Lymphatic: no lymphedema Results & Data Results & Data ([facility]) Vital Signs (Past 12 Hours) Vital Signs Temp Pulse Pulse Resp BP Pulse Ox 12/25/19 19:00 37.3 C 86 20 148/81 H 95 12/25/19 16:23 86 12/25/19 14:48 37.0 C 85 18 161/79 H 95 PG Care Time/CCT Total # of Minutes Spent Total Time Spent with Patient: Total time spent is greater than 50% in coordination of care (as documented) at patient's floor/unit and/or counseling patient: Coding Level of Care Code 91104 Subseq Hosp Care Lvl 3 Diagnoses Fever R50.9 CAD (coronary artery disease) I25.10 DVT prophylaxis Z29.9 Urinary incontinence R32 Time Spent (min) 35
[2019-12-26] MEDS: cefTRIAXone SODIUM 2,000 MG in DEXTROSE 5% 50 ML IV SCH (02:10)
--- NOTE | 2019-12-26 06:04 | Billing Data ---
Date of Service December 26, 2019 Coding Level of Care Code 83495 Initial Inpt Care Lvl 3
[2019-12-26] MEDS: HEPARIN SOD 5,000 UNIT/0.5 ML VIAL SQ SCH ×2 (07:30→20:08)
[2019-12-26] MEDS: ASPIRIN 81 MG ECTAB PO SCH (07:30)
[2019-12-26] MEDS: MAGNESIUM OXIDE 400 MG TAB PO SCH ×2 (07:30→20:08)
[2019-12-26] MEDS: ATORVASTATIN 40 MG TAB PO SCH (20:08)
--- NOTE | 2019-12-26 23:20 | Hospitalist Progress Note ---
Date of Service December 26, 2019 Assessment & Plan (1) Fever: Harini is a 74yo F with PMHx CAD with presents with fever and fatigue Fever secondary to bacteremia. Unsure of cause as of now. -Patient has been afebrile. - Recieved empiric cefepime/vanco -transitioned to rocephin: 2 gr IV - No pulmonary symptoms, CXR clear - Lyme + Anaplasma testing pending - Continue Empiric rocephin - Viral panel/COVID negative -consulted ID, will obtain a ARLYN. ARLYN was held due to her eating in AM. Will place NPO after midnight orders. Hypotension -BP improved, will monitor. SHABANA - Sepsis vs prerenal - BMP daily - Hold nephrotoxins CAD - Continue ASA - Contiue Atorv DVT PPx: Heparin Diet: Heart Health Code Status: Full Dispo: Med/Tele (2) CAD (coronary artery disease): (3) DVT prophylaxis: (4) Urinary incontinence: Admission and Anticipated Discharge Date Admission Date: December 23, 2019 Subjective Patient reports feeling better. Has no new complaints. Review of Systems Review of Systems: All systems reviewed & are unremarkable except as noted in HPI & below Physical Exam Physical Exam: Constitutional: WD/WN, vitals as above no acute distress Eyes: PERRL, conjunctivae normal, anicteric sclerae ENMT: external ear and nose normal, oropharynx normal Neck: trachea midline, no thyromegaly Respiratory: normal respiratory effort, lungs clear to auscultation Cardiovascular: RRR, no murmur, no edema Vessels: no JVD and no carotid bruit Chest (Breasts): Chest: normal inspection of chest Gastrointestinal (Abdomen): normal bowel sounds, soft, nontender, no hepatosplenomegaly Musculoskeletal: Extremities: extremities normal to inspection; no cyanosis and no clubbing Skin: no rashes, warm and dry Neurologic: moves all extremities and awake; no focal motor deficits Psychiatric: Orientation: alert, oriented x 3 and cooperative Eye Contact: good eye contact Speech: normal rate/rhythm/volume of speech Lymphatic: no lymphedema Results & Data Results & Data ([facility]) Vital Signs (Past 12 Hours) Vital Signs Temp Pulse Resp BP BP Pulse Ox 12/26/19 20:10 36.8 C 79 18 145/83 H 99 12/26/19 15:00 36.7 C 87 18 163/82 H 96 PG Care Time/CCT Total # of Minutes Spent Total Time Spent with Patient: Total time spent is greater than 50% in coordination of care (as documented) at patient's floor/unit and/or counseling patient: Coding Level of Care Code 77961 Subseq Hosp Care Lvl 2 Diagnoses Fever R50.9 CAD (coronary artery disease) I25.10 DVT prophylaxis Z29.9 Urinary incontinence R32 Time Spent (min) 25
[2019-12-27] MEDS: cefTRIAXone SODIUM 2,000 MG in DEXTROSE 5% 50 ML IV SCH ×2 (01:47→02:17)
[2019-12-27] MEDS: ACETAMINOPHEN 325 MG TAB PO PRN (02:23)
[2019-12-27 09:02] LABS: Basophils # (auto) 0.02 K/uL (0-0.2); Basophils % (auto) 0.3 %; Eosinophils % (auto) 1.4 %; Hematocrit (blood only) 35.7 % (37-47); Hemoglobin 12.1 g/dL (12.0-16.0); Immature Granulocytes % (auto) 1.4 %; Lymphocytes % (auto) 21.7 %; Mean Corpuscular Hemoglobin 29.5 pg (25-34); Mean Corpuscular Hgb Conc 33.9 g/dL (32-36); Mean Corpuscular Volume 87.1 fL (80-100); Mean Platelet Volume 9.7 fL (7.4-10.4); Monocytes # (auto) 0.55 K/uL (0.11-0.59); Neutrophils # (auto) 4.64 K/uL (1.4-6.5); Neutrophils % (auto) 67.2 %; Platelet Count 139 K/uL (130-400); RDW Coefficient of Variation 13.4 % (11.5-14.5); White Blood Count 6.91 K/uL (4.8-10.8)
[2019-12-27 09:23] LABS: BUN Creatinine Ratio 14.1 (10-20); Calcium 9.2 mg/dl (8.5-10.1); Creatinine Clr Calc Pharmacy 33.8 ml/min; Est GFR (African American) 46.9; Est GFR (Non-African American) 40.5; Potassium 3.6 mmol/L (3.5-5.1)
[2019-12-27] MEDS ORDERED: levoFLOXacin/D5W 750 MG/150 ML BAG IV SCH (10:00)
[2019-12-27] MEDS: HEPARIN SOD 5,000 UNIT/0.5 ML VIAL SQ SCH ×2 (10:51→21:24)
[2019-12-27] MEDS ORDERED: MIDAZOLAM HCL 5 MG/ML 1 ML VIAL ONE (12:40)
[2019-12-27] MEDS ORDERED: fentaNYL citrate 100 MCG/2 ML VIAL ONE ×2 (12:40→13:52)
[2019-12-27] MEDS ORDERED: CANNULA ONE (13:34)
[2019-12-27] MEDS ORDERED: MIDAZOLAM HCL 1 MG/ML 2ML VIAL ONE (13:53)
--- NOTE | 2019-12-27 14:38 | XCELERA ---
[id number] \\[id number]_[id number]
--- NOTE | 2019-12-27 14:39 | Post Anesthesia Assessment ---
Date of Service December 27, 2019 Post Sedation Assessment Vital Signs Temp Pulse Pulse Resp BP BP Pulse Ox 12/27/19 14:30 90 15 119/66 98 12/27/19 14:15 95 H 15 136/65 97 12/27/19 14:05 96 H 15 120/60 97 12/27/19 14:00 92 H 14 141/85 H 98 12/27/19 13:55 92 H 14 162/69 H 98 12/27/19 13:50 91 H 14 191/80 H 98 12/27/19 12:37 83 18 182/102 H 97 12/27/19 11:24 98.1 F 86 16 173/95 H 96 12/27/19 07:32 98.4 F 84 16 171/89 H 95 12/27/19 04:35 98.2 F 96 H 18 138/83 95 12/27/19 00:12 70 12/26/19 23:29 98.2 F 75 18 142/78 H 97 12/26/19 20:10 98.2 F 79 18 145/83 H 99 12/26/19 15:00 98.1 F 87 18 163/82 H 96 Recovery Score Activity: Moves 4 extremities Respiration: Deep Breath/Cough Circulation: +/-20% PreAnes Value Consciousness: Arouseable (by name) Oxygen Saturation: > 92% On Room Air Post Anesthesia Score: 9 Discharge Sedation Level of Care: Fast Track Phase II Post Sedation Plan On clinical assessment, the patient appears to have tolerated the sedation without complications. Patient is recovering as anticipated. Patient will continue to be monitored by nursing and may be discharged when sedation discharge criteria are met per below protocol. Upon Completions of procedure up to 15 minutes continue every 5 minute vital signs and the P.A.R. score; then discharge to a Phase I or Fast Track to Phase II per the following guidelines: * Discharge Patient to appropriate Phase II area if PAR is 8 or greater or return to pre- procedure baseline. The post - procedure orders will be as directed. * If PAR score is less than 8 or not return to pre-procedure baseline then patient will follow Phase I monitoring till PAR is reached for Phase II. The Phase I may be done in procedure room or may call to secure a Phase I area. * If naloxone or flumazenil are used for reversal, hold in Phase I for continued monitoring from when last reversal dose was given for a minimum of 60 minutes or longer pending the nurse and/or physician discretion of patient condition before discharge to Phase II. Please call the Sedation Physician to re-evaluate and complete post-note for discharge to Phase II area. Do NOT discharge from procedure sedation or Phase 1 until post- sedation evaluation note is complete by procedure /sedation MD Sedation Discharge Instructions to be given to the patient at discharge to home.
[2019-12-27] MEDS: ASPIRIN 81 MG ECTAB PO SCH (15:29)
[2019-12-27] MEDS: MAGNESIUM OXIDE 400 MG TAB PO SCH ×2 (15:30→21:24)
[2019-12-27] MEDS: AMPICILLIN 2,000 MG in SODIUM CHLOR 0.9% AD-VAN 100 ML IV SCH ×2 (17:04→21:23)
[2019-12-27] MEDS: ATORVASTATIN 40 MG TAB PO SCH (21:24)
--- NOTE | 2019-12-27 22:18 | Hospitalist Progress Note ---
Date of Service December 27, 2019 Assessment & Plan (1) Fever: Harini is a 74yo F with PMHx CAD with presents with fever and fatigue Fever secondary to bacteremia secondary to UTI from E. faecalis. Patient however on cephalosporin due to culture showing strep initially. -Patient has been afebrile, but now becoming tachycardic again. - was hoping to dc on levaquin, as culture showed sensitivity but after discussing with ID, will continue ampicillin for minimum of 5 days q4h. - No pulmonary symptoms, CXR clear - Lyme + Anaplasma testing pending - Viral panel/COVID negative -consulted ID, ARLYN negative.. . Hypotension -BP improved, will monitor. SHABANA - Sepsis vs prerenal - BMP daily - Hold nephrotoxins CAD - Continue ASA - Contiue Atorv DVT PPx: Heparin Diet: Heart Health Code Status: Full Dispo: Med/Tele (2) CAD (coronary artery disease): (3) DVT prophylaxis: (4) Urinary incontinence: Admission and Anticipated Discharge Date Admission Date: December 23, 2019 Subjective Patient reports feeling well. No new complaints. Review of Systems Review of Systems: All systems reviewed & are unremarkable except as noted in HPI & below Physical Exam Physical Exam: Constitutional: WD/WN, vitals as above no acute distress Eyes: PERRL, conjunctivae normal, anicteric sclerae ENMT: external ear and nose normal, oropharynx normal Neck: trachea midline, no thyromegaly Respiratory: normal respiratory effort, lungs clear to auscultation Cardiovascular: RRR, no murmur, no edema Vessels: no JVD and no carotid bruit Chest (Breasts): Chest: normal inspection of chest Gastrointestinal (Abdomen): normal bowel sounds, soft, nontender, no hepatosplenomegaly Musculoskeletal: Extremities: extremities normal to inspection; no cyanosis and no clubbing Skin: no rashes, warm and dry Neurologic: moves all extremities and awake; no focal motor deficits Psychiatric: Orientation: alert, oriented x 3 and cooperative Eye Contact: good eye contact Speech: normal rate/rhythm/volume of speech Lymphatic: no lymphedema Results & Data Results & Data ([facility]) Vital Signs (Past 12 Hours) Vital Signs Temp Pulse Pulse Resp BP Pulse Ox 12/27/19 19:27 36.7 C 79 20 153/80 H 97 12/27/19 16:00 92 H 12/27/19 14:30 90 15 119/66 98 12/27/19 14:15 95 H 15 136/65 97 12/27/19 14:05 96 H 15 120/60 97 12/27/19 14:00 92 H 14 141/85 H 98 12/27/19 13:55 92 H 14 162/69 H 98 12/27/19 13:50 91 H 14 191/80 H 98 12/27/19 12:37 83 18 182/102 H 97 12/27/19 11:24 36.7 C 86 16 173/95 H 96 PG Care Time/CCT Total # of Minutes Spent Total Time Spent with Patient: Total time spent is greater than 50% in coordination of care (as documented) at patient's floor/unit and/or counseling patient: Coding Level of Care Code 14429 Subseq Hosp Care Lvl 3 Diagnoses Fever R50.9 CAD (coronary artery disease) I25.10 DVT prophylaxis Z29.9 Urinary incontinence R32 Time Spent (min) 35
[2019-12-28] MEDS: AMPICILLIN 2,000 MG in SODIUM CHLOR 0.9% AD-VAN 100 ML IV SCH ×4 (04:09→21:17)
[2019-12-28 07:27] LABS: Creatinine Clr Calc Pharmacy 28.8 ml/min; Est GFR (African American) 39.1; Est GFR (Non-African American) 33.7
[2019-12-28 08:17] LABS: BUN Creatinine Ratio 12.7 (10-20); Est GFR (African American) 41.1; Est GFR (Non-African American) 35.4; Potassium 3.8 mmol/L (3.5-5.1)
[2019-12-28] MEDS: HEPARIN SOD 5,000 UNIT/0.5 ML VIAL SQ SCH ×2 (08:48→21:25)
[2019-12-28] MEDS: ASPIRIN 81 MG ECTAB PO SCH (08:48)
[2019-12-28] MEDS: MAGNESIUM OXIDE 400 MG TAB PO SCH (08:48)
--- NOTE | 2019-12-28 13:34 | Hospitalist Progress Note ---
Date of Service December 28, 2019 Assessment & Plan (1) Bacteremia: Enterococcus faecalis on 12/22 due to UTI. - TTE and ARLYN both negative for endocarditis. - Plan for ampicillin x 5 days from start (End date: 01/01/2020). (2) SHABANA (acute kidney injury): Baseline appears to be ~0.7. Cr was 1.4 on admission, then down, but now creeping back up. - Will give bolus of IV fluids today to help prevent pre-renal. - If not improved tomorrow, will get renal u/s, urine lytes, and consider nephrology consult. (3) CAD (coronary artery disease): No chest pain or other sign/symptom of ischemia. - Will restart home carvedilol - Continue ASA & statin (4) Hypertension: BP is 160/90 today. - Hold home lisinopril for SHABANA - Restart home beta-tiffany (5) Urinary incontinence: - Continue home oxybutynin PRN (6) DVT prophylaxis: Heparin 5,000 units SQ Q12h Admission and Anticipated Discharge Date Admission Date: December 23, 2019 Subjective No major concerns today. Reports she feels well. Reports no fevers/chills, chest pain, shortness of breath, abdominal pain, nausea, or vomiting. Physical Exam Constitutional: WD/WN, vitals as above Eyes: EOM intact bilaterally; no conjunctival abnormality ENMT: external ear and nose normal, oropharynx normal Neck: trachea midline, no thyromegaly normal visual inspection Respiratory: normal respiratory effort, lungs clear to auscultation no respiratory distress Cardiovascular: RRR, no murmur, no edema Gastrointestinal (Abdomen): Inspection/Auscultation: abdomen normal to inspection; abdomen not distended Musculoskeletal: no cyanosis or clubbing, extremities motor strength 5/5 Skin: no rashes, warm and dry Neurologic: moves all extremities and awake Psychiatric: Orientation: alert, oriented to person and cooperative Results & Data Results & Data ([facility]) Vital Signs (Past 12 Hours) Vital Signs Temp Pulse Resp BP Pulse Ox 12/28/19 12:32 37.2 C 83 19 162/87 H 94 12/28/19 07:47 36.9 C 88 18 165/86 H 95 12/28/19 03:53 36.8 C 87 16 165/87 H 94 PG Care Time/CCT Total # of Minutes Spent Total Time Spent with Patient: Total time spent is greater than 50% in coordin ation of care (as documented) at patient's floor/unit and/or counseling patient: Coding Level of Care Code 86870 Subseq Hosp Care Lvl 3 Diagnoses Bacteremia R78.81 SHABANA (acute kidney injury) N17.9 CAD (coronary artery disease) I25.10 Hypertension I10 Urinary incontinence R32 DVT prophylaxis Z29.9
[2019-12-28] MEDS ORDERED: NORMOSOL-R 500 ML IV ONE (13:41)
[2019-12-28] MEDS: carvediloL 12.5 MG TAB PO SCH (21:24)
[2019-12-28] MEDS: ATORVASTATIN 40 MG TAB PO SCH (21:24)
[2019-12-29] MEDS: AMPICILLIN 2,000 MG in SODIUM CHLOR 0.9% AD-VAN 100 ML IV SCH ×4 (04:11→20:30)
[2019-12-29 06:01] LABS: Hematocrit (blood only) 34.9 % (37-47); Hemoglobin 11.7 g/dL (12.0-16.0); Mean Corpuscular Hemoglobin 29.4 pg (25-34); Mean Corpuscular Hgb Conc 33.5 g/dL (32-36); Mean Corpuscular Volume 87.7 fL (80-100); Mean Platelet Volume 9.3 fL (7.4-10.4); Platelet Count 157 K/uL (130-400); RDW Coefficient of Variation 13.6 % (11.5-14.5); RDW Standard Deviation 43.5 fL (36.4-46.3); Red Blood Count 3.98 M/uL (4.2-5.4); White Blood Count 8.32 K/uL (4.8-10.8)
[2019-12-29 06:30] LABS: BUN Creatinine Ratio 13.3 (10-20); Creatinine Clr Calc Pharmacy 32.1 ml/min; Est GFR (African American) 44.4; Est GFR (Non-African American) 38.3; Magnesium 2.4 mg/dl (1.8-2.4); Potassium 3.7 mmol/L (3.5-5.1)
[2019-12-29] MEDS: HEPARIN SOD 5,000 UNIT/0.5 ML VIAL SQ SCH ×2 (08:41→21:07)
[2019-12-29] MEDS: ASPIRIN 81 MG ECTAB PO SCH (08:41)
[2019-12-29] MEDS: carvediloL 12.5 MG TAB PO SCH ×2 (08:41→21:07)
[2019-12-29] MEDS ORDERED: levoFLOXacin/D5W 750 MG/150 ML BAG IV SCH (10:00)
--- NOTE | 2019-12-29 13:11 | Hospitalist Progress Note ---
Date of Service December 29, 2019 Assessment & Plan (1) Bacteremia: Enterococcus faecalis on 12/22 due to UTI. - TTE and ARLYN both negative for endocarditis. - Plan for ampicillin x 5 days from start (End date: 01/01/2020). (2) SHABANA (acute kidney injury): Baseline appears to be ~0.7. Cr was 1.4 on admission, then down, but now creeping back up. - Bolus of IV fluids on 12/27. - On 12/28, had improved to 1.35; hopefully returning to baseline. No ne phrotoxic meds presently. (3) CAD (coronary artery disease): No chest pain or other sign/symptom of ischemia. - Restarted home carvedilol on 12/27 - Continue ASA & statin (4) Hypertension: BP is 160/90 today. - Hold home lisinopril for SHABANA - Restarted home beta-tiffany on 12/27 (5) Urinary incontinence: - Continue home oxybutynin PRN (6) DVT prophylaxis: Heparin 5,000 units SQ Q12h Admission and Anticipated Discharge Date Admission Date: December 23, 2019 Subjective Somewhat tearful today about not being able to go home. Reports no fevers/chills, chest pain, shortness of breath, abdominal pain, nausea, or vomiting. Physical Exam Constitutional: WD/WN, vitals as above Eyes: EOM intact bilaterally; no conjunctival abnormality ENMT: external ear and nose normal, oropharynx normal Neck: trachea midline, no thyromegaly normal visual inspection Respiratory: normal respiratory effort, lungs clear to auscultation no respiratory distress Cardiovascular: RRR, no murmur, no edema Gastrointestinal (Abdomen): Inspection/Auscultation: abdomen normal to inspection; abdomen not distended Musculoskeletal: no cyanosis or clubbing, extremities motor strength 5/5 Skin: no rashes, warm and dry Neurologic: moves all extremities and awake Psychiatric: Orientation: alert, oriented to person and cooperative Results & Data Results & Data ([facility]) Vital Signs (Past 12 Hours) Vital Signs Temp Pulse Pulse Resp BP Pulse Ox 12/29/19 12:35 36.7 C 75 18 159/74 H 96 12/29/19 07:55 36.7 C 75 18 159/74 H 96 12/29/19 07:00 79 12/29/19 04:00 36.9 C 89 18 156/72 H 95 PG Care Time/CCT Total # of Minutes Spent Total Time Spent with Patient: Total time spent is greater than 50% in coordination of care (as documented) at patient's floor/unit and/or counseling patient: Coding Level of Care Code 90521 Subseq Hosp Care Lvl 2 Diagnoses Bacteremia R78.81 SHABANA (acute kidney injury) N17.9 CAD (coronary artery disease) I25.10 Hypertension I10 Urinary incontinence R32 DVT prophylaxis Z29.9
[2019-12-29] MEDS: ATORVASTATIN 40 MG TAB PO SCH (21:07)
[2019-12-30] MEDS: AMPICILLIN 2,000 MG in SODIUM CHLOR 0.9% AD-VAN 100 ML IV SCH ×4 (03:04→21:44)
[2019-12-30 06:57] LABS: BUN Creatinine Ratio 12.5 (10-20); Calcium 8.9 mg/dl (8.5-10.1); Creatinine Clr Calc Pharmacy 30.2 ml/min; Est GFR (African American) 41.1; Est GFR (Non-African American) 35.4; Potassium 3.8 mmol/L (3.5-5.1)
[2019-12-30] MEDS: HEPARIN SOD 5,000 UNIT/0.5 ML VIAL SQ SCH ×2 (07:38→21:45)
[2019-12-30] MEDS: carvediloL 12.5 MG TAB PO SCH ×2 (07:38→21:45)
[2019-12-30] MEDS: ASPIRIN 81 MG ECTAB PO SCH (07:38)
--- NOTE | 2019-12-30 11:04 | Ultrasound Report ---
US renal/blad retro comp HISTORY: 74 years-old Female SHABANA acute kidney injury COMPARISON: CT abdomen and pelvis 10/16/2015 TECHNIQUE: Multiple real-time sonographic images of the kidneys and urinary bladder were obtained ass essing grayscale appearance and color flow FINDINGS: The right kidney measures 11.9 cm in length and demonstrates mild hydroureteronephrosis. Scattered no nobstructing calculi of the right kidney measure up to 4 mm. Mild cortical thinning throughout the ri ght kidney. No suspicious mass lesion. Partially decompressed urinary bladder. Ureteral jets not identified. The left kidney measures 11.7 cm in length and demonstrates no hydronephrosis or suspicious mass lesi ons. There are a few nonshadowing echogenicities noted within the left kidney measuring up to 3 mm guerrero ggestive of nonobstructing calculi. IMPRESSION: 1. Mild right-sided hydroureteronephrosis. 2. Bilateral nephrolithiasis. 3. Partial distention of the urinary bladder. ACT 112: Negative or not required by law. The above report was generated using voice recognition software. It may contain grammatical, syntax o r spelling errors. Electronically signed by: Dre Callejas M.D. 12/30/2019 11:03 AM
[2019-12-30] MEDS: NORMOSOL-R 1,000 ML IV ONE ×2 (11:46→14:31)
[2019-12-30 12:12] LABS: Appearance Urine Cloudy (Clear); Bacteria Urine Automated Negative (Negative); Bilirubin Urine Negative (Negative); Blood Urine Trace (Negative); Color Urine Yellow; Epithelial Cell Urine Auto >30 /lpf (0-5); Glucose Urine UA Negative (Negative); Ketones Urine Negative (Negative); Leukocyte Esterase Urine 1+ (Negative); Nitrite Urine Negative (Negative); Protein Urine Negative (Negative); RBC Urine Automated 0-4 /hpf (0-4); Specific Gravity Urine 1.018 (1.000-1.030); Urobilinogen Urine Negative (Negative); pH Urine 7.5 (4.5-7.5)
--- NOTE | 2019-12-30 15:05 | Urology Consultation ---
Date of Consultation December 30, 2019 Assessment & Plan (1) Hydronephrosis, right: (2) SHABANA (acute kidney injury): 74yo F admitted with bacteremia secondary to UTI from E. faecalis. -Reviewed plan of care with Dr. Dillon -Patient is afebrile, wbc is stable -Creatinine remains elevated -Renal ultrasound from today revealed mild right hydronephrosis, bilateral nephrolithiasis, and partially distended bladder -Will check a CT abd/pelvis w/o contrast for further evaluation of hydronephr osis -Recommend PVR/bladder scan to ensure patient is emptying -Additional recommendations pending imaging results -Will continue to follow History of Present Illness Reason for Consultation: SHABANA and Hydronephrosis Attending Physician: Josiah Vides MD History of Present Illness The patient is a 74-year-old female admitted on 12/23/19 with fever and fatigue secondary to bacteremia secondary to UTI from E. faecalis. Urology consulted for SHABANA and Hydronephrosis. Baseline appears to be ~0.7. Cr was 1.4 on admission, then down, but now creeping back up. Chart review: Afebrile Wbc 8.32 (12/28) Hgb 11.7 (12/28) Cr 1.44 (12/29); 1.35 (12/28) Continues on IV Ampicillin Renal Ultrasound 12/29- IMPRESSION: 1. Mild right-sided hydroureteronephrosis. 2. Bilateral nephrolithiasis. 3. Partial distention of the urinary bladder. Patient examined at bedside this afternoon. Awake, sitting in chair on arrival. Denies any back, flank, or suprapubic pain. Denies fevers or chills. Tolerating diet, no nausea or vomiting. Reports some urinary urgency and occasional incontinence. Has Oxybutynin 5mg prn for urinary incontinence, but does not take often. Wears pad for protection if leaving home. Denies hematuria/dysuria. Denies frequency. Denies hesitancy. Feels like she empties her bladder well. Has not seen Urology in the past. Denies prior hx of urological issues. Denies pertinent family hx. Offers no additional complaints today. Eager to go home. Allergies Allergy/AdvReac Type Severity Reaction Status Date / Time No Known Allergies Allergy Unknown Verified 12/23/19 22:26 Home Medications Medication Instructions Recorded Confirmed Type aspirin 81 mg PO QAM 04/30/19 12/23/19 History atorvastatin 40 mg PO HS 04/30/19 12/23/19 History lisinopril 5 mg PO QAM 04/30/19 12/23/19 History oxybutynin chloride 5 mg PO BID PRN 04/30/19 12/23/19 History carvedilol 25 mg PO BID #180 tab 05/25/19 12/23/19 Rx ampicillin sodium 2 g IV Q6H #11 ea 12/29/19 Rx Patient History Medical History (Updated 12/30/19 @ 15:45 by LUIS FERNANDO Ocampo) Hydronephrosis, right Hyperlipidemia Hypertension No pertinent family history Precordial chest pain Urinary incontinence Vertigo Surgical History H/O heart artery stent Family History Father , Unsure of reason No problems noted. Mother , age 48 from ruptured ventral hernia complications No problems noted. 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[employer]; [employer] Feels Safe at Home: Yes Safety Concerns: Feels Safe At This Time Assistive Devices: Glasses Review of Systems Constitutional: as per Subjective / HPI Eyes: no problem reported Ear, Nose, Mouth, Throat: no problem reported Respiratory: no problem reported Cardiovascular: no chest pain and no dyspnea Gastrointestinal: as per Subjective / HPI Genitourinary: as per Subjective / HPI Musculoskeletal: as per Subjective / HPI Integumentary: no problem reported Neurologic: no abnormal movements and no abnormal speech Psychiatric: no irritability and no confusion Endocrine: no problem reported Hematologic / Lymphatic: no problem reported Allergy / Immunological: no problem reported Physical Exam Constitutional: well developed and well nourished; no acute distress and not ill appearing Neck: normal visual inspection Respiratory: normal respiratory effort and able to speak in complete sentences Cardiovascular: Extremities: no calf tenderness and no pedal edema Gastrointestinal (Abdomen): Inspection/Auscultation: abdomen normal to inspection; abdomen not distended Musculoskeletal: Head/Neck/Chest: normocephalic Skin: no rashes, warm and dry Neurologic: moves all extremities and awake; not confused Psychiatric: Orientation: alert, oriented x 3 and cooperative Results & Data ([facility]) Vital Signs (Past 12 Hours) Vital Signs Temp Pulse Resp BP Pulse Ox 12/30/19 06:11 36.8 C 87 20 173/84 H 94 PG Care Time/CCT Total # of Minutes Spent Total Time Spent with Patient: Total time spent is greater than 50% in coordination of care (as documented) at patient's floor/unit and/or counseling patient: Coding Level of Care Code 89836 Initial Inpt Care Lvl 3 Diagnoses Hydronephrosis, right N13.30 SHABANA (acute kidney injury) N17.9
--- NOTE | 2019-12-30 15:24 | Nephrology Consultation ---
Date of Consultation December 30, 2019 Assessment & Plan (1) SHABANA (acute kidney injury): 74 yo f with no prior h/o CKD admitted to the hospital with sepsis with bacteremia and UTI. On admission renal function was normal however developed SHABANA over last few days, creatinine staying around 1.4-1.5. Urinalysis with low grade proteinuria, hematuria and pyuria. Fever resolved, no skin rash or arthralgia. Renal ultrasound was notable for moderate hydronephrosis. Differentials for acute kidney injury broad including hemodynamic in the setting of sepsis and variability in blood pressure, acute tubular interstitial nephritis with multiple antibiotic exposure. unlikely intrinsic glomerular disease such as post infectious GN. Unclear how much contribution from right- sided hydronephrosis however, degree of obstruction seems more than the report, and the cause is not clear. -- recommend CT abdomen pelvis without contrast for further evaluation the right-sided hydronephrosis, consultation with Urology -- do not think IV fluid has much role as long as she has decent p.o. intake -- monitor intake output -- continue to hold lisinopril for now, start on amlodipine 5 mg p.o. daily -- okay to continue on Ampicillin, acute kidney injury started prior to starting Ampicillin, check C3,C4 -- discussed in detail with the patient and her son over telephone, recommended inpatient stay for further evaluation and management as the cause for acute kidney injury is not entirely clear at this point. she was extremely tearful and just wanted to get discharged. However after detailed discussion with her son, she decided to stay overnight Will follow Thank you for allowing me to participate in your patient's care. It was a pleasure to see Harini (2) Bacteremia: (3) Hydronephrosis: History of Present Illness Reason for Consultation: acute kidney injury and hydronephrosis. Attending Physician: Josiah Vides MD History of Present Illness Harini with latest 24-year-old female with past medical history significant for hypertension, coronary artery disease admitted to the hospital sepsis with streptococcal bacteremia. Nephrology consult was requested to manage acute kidney injury. Electronic medical records reviewed in detail during patient's visit. Harini was admitted to the hospital on 12/23/2019 with fever and sepsis. On admission she was empirically started on vancomycin and cefepime. Blood culture and urine culture was positive for Enterococcus. Antibiotic was eventually switched to ampicillin starting 12/27/2019. ARLYN was negative for endocarditis. She had no known history of chronic kidney disease, baseline creatinine has been 0.8-0.9. On admission creatinine was 0.8, however she developed SHABANA with creatinine 1.4 on 12/24/2019. Creatinine was again 0.8 on 12/25/19 but from 12/27/19 creatinine has been staying around 1.4-1.5. Urinalysis positive for low grade proteinuria, microscopic hematuria and pyuria. She reports adequate p.o. intake. She has been on IV fluid off and on throughout the hospital course. has been afebrile over last 2 days. Did not received NSAIDs. Lisinopril has been on hold. She has been voiding normally. Renal ultrasound on 12/30/2019 showed moderate right sided hydronephrosis, bilateral nonobstructing renal calculi, no renal mass. Has history of hypertension, blood pressure throughout hospital course generally elevated with occasional low blood pressure. history of coronary artery disease status post PTCA and stent before, On carvedilol. Currently she denies any fever chills, shortness of breath, chest pain. Has been voiding normally, no lower extremity edema, appetite has been decent. She was tearful and crying throughout the visit as has been extremely difficult for her to stay in hospital for last few days and she just wants to go home. Allergies Allergy/AdvReac Type Severity Reaction Status Date / Time No Known Allergies Allergy Unknown Verified 12/23/19 22:26 Home Medications Medication Instructions Recorded Confirmed Type aspirin 81 mg PO QAM 04/30/19 12/23/19 History atorvastatin 40 mg PO HS 04/30/19 12/23/19 History lisinopril 5 mg PO QAM 04/30/19 12/23/19 History oxybutynin chloride 5 mg PO BID PRN 04/30/19 12/23/19 History carvedilol 25 mg PO BID #180 tab 05/25/19 12/23/19 Rx ampicillin sodium 2 g IV Q6H #11 ea 12/29/19 Rx Patient History Medical History (Updated 12/30/19 @ 15:18 by Citlalli Katz MD) Hyperlipidemia Hypertension No pertinent family history Precordial chest pain Urinary incontinence Vertigo Surgical History H/O heart artery stent Family History Father , Unsure of reason No problems noted. Mother , age 48 from ruptured ventral hernia complications No problems noted. 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[employer]; [employer] Feels Safe at Home: Yes Safety Concerns: Feels Safe At This Time Assistive Devices: Glasses Review of Systems Review of Systems: All systems reviewed & are unremarkable except as noted in HPI & below Physical Exam Constitutional: WD/WN, vitals as above no acute distress Eyes: PERRL, conjunctivae normal, anicteric sclerae ENMT: external ear and nose normal, oropharynx normal Ears: no hearing impairment Neck: trachea midline Respiratory: normal respiratory effort, lungs clear to auscultation no cough Auscultation: no crackles, no rales and no wheezes Cardiovascular: RRR, no murmur, no edema Gastrointestinal (Abdomen): normal bowel sounds, soft, nontender, no hepatosplenomegaly Percussion/Palpation: abdomen nontender, no guarding and abdomen not rigid Musculoskeletal: Extremities: extremities normal to inspection Gait: normal gait Skin: no rashes, warm and dry Neurologic: moves all extremities and awake Psychiatric: Orientation: alert and oriented x 3 Affect: + tearful affect Results & Data ([facility]) Vital Signs (Past 12 Hours) Vital Signs Temp Pulse Resp BP Pulse Ox 12/30/19 06:11 36.8 C 87 20 173/84 H 94 PG Care Time/CCT Total # of Minutes Spent Total Time Spent with Patient: Total time spent is greater than 50% in coordination of care (as documented) at patient's floor/unit and/or counseling patient: Coding Level of Care Code 75305 Inpt Consult Level 5 Diagnoses SHABANA (acute kidney injury) N17.9 Bacteremia R78.81 Hydronephrosis N13.30
--- NOTE | 2019-12-30 15:35 | Hospitalist Progress Note ---
Date of Service December 30, 2019 Assessment & Plan (1) SHABANA (acute kidney injury): Baseline appears to be ~0.7. Cr was 1.4 on admission, then down, but now creeping back up. - Bolus of IV fluids on 12/27. - On 12/28, had improved to 1.35, but back up to 1.45 on 12/29. Discussed with Dr. Katz. Will get CT a/p to r/o obstruction. Complements to r/o infectious damage. Urology consulted per nephrology. (2) Bacteremia: Enterococcus faecalis on 12/22 due to UTI. - TTE and ARLYN both negative for endocarditis. - Plan for ampicillin x 5 days from start (End date: 01/01/2020). (3) CAD (coronary artery disease): No chest pain or other sign/symptom of ischemia. - Restarted home carvedilol on 12/27 - Continue ASA & statin (4) Hypertension: BP is 170/85 today. - Hold home lisinopril for SHABANA - Restarted home beta-tiffany on 12/27; return to home dose on 12/29 given continued hypertension. (5) Urinary incontinence: - Continue home oxybutynin PRN (6) DVT prophylaxis: Heparin 5,000 units SQ Q12h Admission and Anticipated Discharge Date Admission Date: December 23, 2019 Subjective Very tearful today and reports that she very much wants to go home. Reports no fevers/chills, chest pain, shortness of breath, abdominal pain, nausea, or vomiting. Physical Exam Constitutional: WD/WN, vitals as above Eyes: EOM intact bilaterally; no conjunctival abnormality ENMT: external ear and nose normal, oropharynx normal Neck: trachea midline, no thyromegaly normal visual inspection Respiratory: normal respiratory effort, lungs clear to auscultation no respiratory distress Cardiovascular: RRR, no murmur, no edema Gastrointestinal (Abdomen): Inspection/Auscultation: abdomen normal to insp ection; abdomen not distended Musculoskeletal: no cyanosis or clubbing, extremities motor strength 5/5 Skin: no rashes, warm and dry Neurologic: moves all extremities and awake Psychiatric: Orientation: alert, oriented to person and cooperative Results & Data Results & Data ([facility]) Vital Signs (Past 12 Hours) Vital Signs Temp Pulse Resp BP Pulse Ox 12/30/19 06:11 36.8 C 87 20 173/84 H 94 PG Care Time/CCT Total # of Minutes Spent Total Time Spent with Patient: Total time spent is greater than 50% in coordination of care (as documented) at patient's floor/unit and/or counseling patient: Coding Level of Care Code 18888 Subseq Hosp Care Lvl 3 Diagnoses SHABANA (acute kidney injury) N17.9 Bacteremia R78.81 CAD (coronary artery disease) I25.10 Hypertension I10 Urinary incontinence R32 DVT prophylaxis Z29.9
[2019-12-30] MEDS: amLODIPine BESYLATE 5 MG TAB PO SCH (16:08)
--- NOTE | 2019-12-30 18:49 | CT Scan Report ---
CT OF THE ABDOMEN AND PELVIS WITHOUT CONTRAST CLINICAL HISTORY: Hydronephrosis, ureters COMPARISON STUDY: CT of the abdomen and pelvis October 16, 2015. Renal ultrasound performed earlier today. TECHNIQUE: Axial images of the abdomen and pelvis were obtained without IV contrast. Images were revi ewed in the axial, sagittal, and coronal planes. Automated exposure control was utilized for the sammy dy. A dose lowering technique was utilized adhering to the principles of ALARA. FINDINGS: No pneumatosis, free air or portal venous gas is present. Moderate cardiomegaly is noted. U nenhanced images of the liver, adrenal glands and pancreas are unremarkable. There is no biliary or p ancreatic ductal dilatation dictation. There are suspected tiny stones within the gallbladder without evidence for acute cholecystitis. Borderline splenomegaly is noted. There is no evidence for a bowel obstruction. Colonic diverticulosis is noted without evidence for acute diverticulitis. Moderate right hydroureteronephrosis is due to a 1.5 x 0.7 cm distal right ureteral calculus located just inferior to the level of the sacroiliac joint. No additional ureteral calculi are present. Bilat eral renal calculi measure up to 4 mm. There is no left hydronephrosis. IMPRESSION: 1. Obstructing 1.5 x 0.7 cm distal right ureteral calculus located just inferior to the level of the sacroiliac joint which results in moderate right hydroureteronephrosis. 2. No left ureteral calculi. Bilateral nephrolithiasis, as described above. 3. No bowel obstruction. Colonic diverticulosis without evidence for acute diverticulitis. ACT 112: Negative or not required by law. Electronically signed by: Taj Salcedo M.D. 12/30/2019 6:47 PM
[2019-12-30] MEDS: ATORVASTATIN 40 MG TAB PO SCH (21:45)
[2019-12-31] MEDS: AMPICILLIN 2,000 MG in SODIUM CHLOR 0.9% AD-VAN 100 ML IV SCH ×5 (03:51→21:04)
[2019-12-31 07:01] LABS: Hematocrit (blood only) 35.2 % (37-47); Hemoglobin 11.7 g/dL (12.0-16.0); Mean Corpuscular Hemoglobin 29.4 pg (25-34); Mean Corpuscular Hgb Conc 33.2 g/dL (32-36); Mean Corpuscular Volume 88.4 fL (80-100); Nucleated RBC # (auto) 0.02 K/uL (0-0); Nucleated RBC % (auto) 0.2 %; Platelet Count 192 K/uL (130-400); RDW Coefficient of Variation 13.9 % (11.5-14.5); RDW Standard Deviation 44.8 fL (36.4-46.3); Red Blood Count 3.98 M/uL (4.2-5.4)
--- NOTE | 2019-12-31 07:49 | Urology Progress Note ---
Date of Service December 31, 2019 Assessment & Plan (1) Right ureteral stone: (2) Hydronephrosis, right: 74yo F with a 15 x7mm distal right ureteral stone with hydronephrosis -She remains afebrile -Labs reviewed, Wbc is stable and creatinine remains elevated -Made NPO -Findings reviewed with Dr. Murcia. Given her right hydronephrosis in the context of an obstructing 15x7mm right distal ureteral stone, will proceed with OR for Cystoscopy, Right Ureteronephroscopy, Laser destruction or extraction of the stone, insertion of stent catheter depending on findings. Risks and benefits to be reviewed with patient by Dr. Murcia. OR notified. CXR and EKG in chart. On IV Ampicillin. Admission and Anticipated Discharge Date Admission Date: December 23, 2019 Supervising Physician Co-Signing Physician Notes Agree with above. We will attempt to treat the stone today. Plan for R URS/LL/stent Subjective Patient examined at bedside this AM Awake, sitting up in chair on arrival Denies back, flank, and suprapubic pain Denies fevers or chills No nausea or vomiting Denies hematuria/dysuria She reports nothing to eat since before midnight Has only had sips of water Chart review: Afebrile Wbc 9.20 Hgb 11.7 Cr 1.41 Continues on IV Ampicillin q6h CT abd/pelvis 12/29- IMPRESSION: 1. Obstructing 1.5 x 0.7 cm distal right ureteral calculus located just inferior to the level of the sacroiliac joint which results in moderate right hydroureteronephrosis. 2. No left ureteral calculi. Bilateral nephrolithiasis. 3. No bowel obstruction. Colonic diverticulosis without evidence for acute diverticulitis. Review of Systems Constitutional: as per Subjective / HPI Gastrointestinal: as per Subjective / HPI Genitourinary: as per Subjective / HPI Musculoskeletal: as per Subjective / HPI Physical Exam Constitutional: cooperative; no acute distress Respiratory: normal respiratory effort and able to speak in complete sentences Cardiovascular: Extremities: no calf tenderness and no pedal edema Gastrointestinal (Abdomen): Inspection/Auscultation: abdomen normal to in spection; abdomen not distended Musculoskeletal: Head/Neck/Chest: normocephalic Skin: no rashes, warm and dry Neurologic: moves all extremities and awake; not confused Psychiatric: Orientation: alert and oriented x 3 Genitourinary: no CVA tenderness Results & Data ([facility]) Vital Signs (Past 12 Hours) Vital Signs Temp Pulse Resp BP BP Pulse Ox 12/30/19 23:42 36.7 C 90 20 156/75 H 95 12/30/19 19:53 36.7 C 81 16 184/94 H 96 PG Care Time/CCT Total # of Minutes Spent Total Time Spent with Patient: Total time spent is greater than 50% in coordination of care (as documented) at patient's floor/unit and/or counseling patient: Coding Level of Care Code 83018 Subseq Hosp Care Lvl 2 Diagnoses Right ureteral stone N20.1 Hydronephrosis, right N13.30
[2019-12-31 08:05] LABS: Calcium 9.1 mg/dl (8.5-10.1); Creatinine Clr Calc Pharmacy 30.9 ml/min; Est GFR (African American) 42.1; Est GFR (Non-African American) 36.3; Magnesium 2.2 mg/dl (1.8-2.4); Potassium 4.1 mmol/L (3.5-5.1)
[2019-12-31 08:08] LABS: Albumin Globulin Ratio 0.9 (0.9-2); Bilirubin,Total 0.7 mg/dl (0.2-1); Globulin 3.3 gm/dl (2.5-4.0); Phosphorus 2.9 mg/dl (2.5-4.9); Total Protein 6.3 gm/dl (6.4-8.2)
[2019-12-31] MEDS: HEPARIN SOD 5,000 UNIT/0.5 ML VIAL SQ SCH ×2 (08:23→21:05)
[2019-12-31] MEDS: ASPIRIN 81 MG ECTAB PO SCH (08:23)
--- NOTE | 2019-12-31 10:19 | Nephrology Progress Note ---
Date of Service December 31, 2019 Assessment & Plan (1) SHABANA (acute kidney injury): 74 yo f with no prior h/o CKD admitted to the hospital with sepsis with bacteremia and UTI. On admission renal function was normal however developed SHABANA over last few days, creatinine staying around 1.4-1.5. Urinalysis with low grade proteinuria, hematuria and pyuria. Fever resolved, no skin rash or arthralgia. Renal ultrasound was notable for moderate hydronephrosis. SHABANA With right-sided hydronephrosis with 1.5 centimeter ureteral stone. waiting for cystoscopy and lithotripsy today overall she is clinically stable and asymptomatic, no fever, chills, no flank pain. -- monitor intake output -- continue to hold lisinopril for now, on amlodipine 5 mg p.o. daily, okay to resume lisinopril on discharge -- Renal panel in am Will follow (2) Bacteremia: (3) Hydronephrosis: Admission and Anticipated Discharge Date Admission Date: December 23, 2019 Glendy Schuler was seen and examined in her room this morning. She denies any symptom, overall seems comfortable and in much better mood compared to yesterday. she is due for cystoscopy and lithotripsy this morning. Renal function staying relatively stable, electrolyte acceptable. Has been voiding normally. Blood pressure improved. Review of Systems Review of Systems: All systems reviewed & are unremarkable except as noted in HPI & below Physical Exam Constitutional: well developed and well nourished; no acute distress Respiratory: normal respiratory effort, lungs clear to auscultation Cardiovascular: RRR, no murmur, no edema Neurologic: moves all extremities and awake; not confused Psychiatric: A+Ox3, euthymic affect Results & Data ([facility]) Vital Signs (Past 12 Hours) Vital Signs Temp Pulse Resp BP Pulse Ox 12/31/19 08:00 36.9 C 84 18 162/84 H 95 12/30/19 23:42 36.7 C 90 20 156/75 H 95 PG Care Time/CCT Total # of Minutes Spent Total Time Spent with Patient: Total time spent is greater than 50% in coordination of care (as documented) at patient's floor/unit and/or counseling patient: Coding Level of Care Code 59487 Subseq Hosp Care Lvl 3 Diagnoses SHABANA (acute kidney injury) N17.9 Bacteremia R78.81 Hydronephrosis N13.30
[2019-12-31] MEDS ORDERED: fentaNYL citrate 100 MCG/2 ML VIAL ONE (13:36)
[2019-12-31] MEDS ORDERED: LIDOCAINE HCL 2% 2 ML VIAL/AMP(20MG/ML) INFIL ONE (13:36)
[2019-12-31] MEDS ORDERED: PROPOFOL IV EMULSION 10 MG/ML 20 ML VIAL IV ONE (13:36)
[2019-12-31] MEDS: carvediloL 12.5 MG TAB PO SCH (13:38)
[2019-12-31] MEDS ORDERED: ATROPINE SULFATE 0.1 MG/ML 10ML SYR IV PRN (13:42)
[2019-12-31] MEDS ORDERED: ONDANSETRON INJ 2 MG/ML 2 ML VIAL IV PRN (13:42)
[2019-12-31] MEDS ORDERED: PROMETHAZINE HCL 6.25 MG in SODIUM CHLORIDE 0.9% 50 ML IV PRN (13:42)
[2019-12-31] MEDS ORDERED: ePHEDrine sulfate 50 MG/ML AMP IV PRN (13:42)
[2019-12-31] MEDS ORDERED: fentaNYL citrate 100 MCG/2 ML VIAL IV PRN (13:42)
--- NOTE | 2019-12-31 13:42 | Anesthesiology Consultation ---
Date of Service December 31, 2019 Assessment & Plan (1) Encounter for pre-operative examination: Chart Review Chart Review: Acceptable Risk for Surgery and Patient NOT seen in Pre Admission Testing Consults Requested none ASA ASA3 Proposed Anesthesia Anesthesia Type: General Risk / Benefits Reviewed With: PT / POA / Parent / Guardian, Accepts Plan and Informed Consent Obtained History Surgery Operation Date: 12/27/19 13:30 Proposed Procedures p Transesophageal Echo - Todd Cheung MD Operation Date: 12/31/19 07:00 Proposed Procedures p Cystoscopy, Right Ureteronephroscopy, Laser Lithotripsy, Stent Insertion - Todd Murcia MD Height/Weight Height: 5 ft Weight: 73.5 kg Allergies Allergy/AdvReac Type Severity Reaction Status Date / Time No Known Allergies Allergy Unknown Verified 12/23/19 22:26 Medications Home Medications Medication Instructions Recorded Confirmed Last Taken aspirin 81 mg PO QAM 04/30/19 12/23/19 04/30/19 atorvastatin 40 mg PO HS 04/30/19 12/23/19 04/29/19 lisinopril 5 mg PO QAM 04/30/19 12/23/19 04/30/19 oxybutynin chloride 5 mg PO BID PRN 04/30/19 12/23/19 04/30/19 carvedilol 25 mg PO BID #180 tab 05/25/19 12/23/19 Unknown ampicillin sodium 2 g IV Q6H #11 ea 12/29/19 Unknown Active Medications Generic Name Dose Route Start Last Admin Trade Name Freq PRN Reason Stop Dose Admin Acetaminophen 650 mg 12/24/19 00:24 12/27/19 02:23 Acetaminophen 325 Mg Tab PO 01/23/20 00:23 650 mg Q4H PRN Administration Pain or Fever Amlodipine Besylate 5 mg 12/30/19 15:45 12/30/19 16:08 Amlodipine Besylate 5 Mg Tab PO 01/29/20 15:44 5 mg QAM DESTINY Administration Aspirin 81 mg 12/24/19 09:00 12/31/19 08:23 Aspirin 81 Mg Ectab PO 01/23/20 08:59 Not Given QAM DESTINY Atorvastatin Calcium 40 mg 12/24/19 21:00 12/30/19 21:45 Atorvastatin 40 Mg Tab PO 01/23/20 20:59 40 mg HS DESTINY Administration Carvedilol 12.5 mg 12/28/19 21:00 12/31/19 13:38 Carvedilol 12.5 Mg Tab PO 01/27/20 20:59 Not Given BID DESTINY Heparin Sodium (Porcine) 5,000 units 12/24/19 09:00 12/31/19 08:23 Heparin Sod 5,000 Unit/0.5 Ml Vial SQ 01/23/20 08:59 Not Given Q12 DESTINY Ampicillin Sodium 2,000 mg/ 100 mls @ 200 mls/hr 12/27/19 15:00 12/31/19 09 :46 Sodium Chloride IV 01/10/20 14:59 Infused Q6H DESTINY Infusion Protocol NPO Date Last Intake of Fluids: 12/30/19 Time Last Intake of Fluids: 19:00 Date Last Intake of Solids: 12/30/19 Time Last Intake of Solids: 18:00 Past Medical History Medical History Hydronephrosis, right Hyperlipidemia Hypertension No pertinent family history Precordial chest pain Right ureteral stone Urinary incontinence Vertigo Exercise / Class Metabolic Activity II 4-5 Yardwork/Stairs/Walk up hill Past Family History Family History Father , Unsure of reason No problems noted. Mother , age 48 from ruptured ventral hernia complications No problems noted. Brother Cancer Past Surgical History Surgical History H/O heart artery stent Past Anesthesia History No Hx of Anesthesia Complications and No Family Hx of Anesthesia Complications History of PONV No Hx of PONV and No Hx of Motion Sickness Social History Smoking Status: Never smoker Hx Alcohol Use: No Hx Substance Use: No substance use type: does not use Physical Exam Vital Signs Last Vital Signs Temp 37.0 C 12/31/19 12:55 Pulse 80 12/31/19 12:55 Resp 16 12/31/19 12:55 BP 185/78 H 12/31/19 12:55 Pulse Ox 100 12/31/19 12:55 ENMT Mouth: no dentition abnormality Thyromental Distance: > or= 3.5 Finger Breadths Mallampati Class: II Neck normal visual inspection Respiratory normal respiratory effort Auscultation: lungs clear to auscultation bilaterally Cardiovascular Rate/Rhythm: regular rate and regular rhythm Psychiatric Orientation: alert Testing Laboratory Results 12/31/19 06:12 12/31/19 06:12 PT Cancelled 12/23/19 20:04 INR Cancelled 12/23/19 20:04 APTT Cancelled 12/23/19 20:04 Urine Color Yellow 12/30/19 11:49 Urine Appearance Cloudy (Clear) A 12/30/19 11:49 Urine pH 7.5 (4.5-7.5) 12/30/19 11:49 Ur Specific [place] 1.018 (1.000-1.030) 12/30/19 11:49 Urine Protein Negative (Negative) 12/30/19 11:49 Urine Glucose (UA) Negative (Negative) 12/30/19 11:49 Urine Ketones Negative (Negative) 12/30/19 11:49 Urine Nitrite Negative (Negative) 12/30/19 11:49 Ur Leukocyte Esterase 1+ (Negative) H 12/30/19 11:49 Urine WBC (Auto) 5-10 /hpf (0-5) H 12/30/19 11:49 Urine RBC (Auto) 0-4 /hpf (0-4) 12/30/19 11:49 U Hyaline Cast (Auto) 1-5 /lpf (0-5) 12/30/19 11:49 U Epithel Cells (Auto) >30 /lpf (0-5) H 12/30/19 11:49 Urine Bacteria (Auto) Negative (Negative) 12/30/19 11:49 12/25/19 09:45 Aerobic Blood Culture - Final Blood No growth in Aerobic bottle after 5 days. Anaerobic Blood Culture - Final No growth in Anaerobic bottle after 5 days. 12/25/19 09:35 Aerobic Blood Culture - Final Blood No growth in Aerobic bottle after 5 days. Anaerobic Blood Culture - Final No growth in Anaerobic bottle after 5 days. 12/24/19 11:24 Aerobic Blood Culture - Final Blood No growth in Aerobic bottle after 5 days. Anaerobic Blood Culture - Final 12/24/19 10:53 Aerobic Blood Culture - Final Blood No growth in Aerobic bottle after 5 days. Anaerobic Blood Culture - Final No growth in Anaerobic bottle after 5 days. 12/23/19 21:08 Aerobic Blood Culture - Final Blood Enterococcus faecalis Anaerobic Blood Culture - Final Enterococcus faecalis 12/23/19 20:20 Aerobic Blood Culture - Final Blood Enterococcus faecalis Anaerobic Blood Culture - Final Enterococcus faecalis 12/23/19 20:29 Urine Culture - Final Urine,Clean Catch Enterococcus faecalis
[2019-12-31] MEDS: amLODIPine BESYLATE 5 MG TAB PO SCH (14:21)
[2019-12-31] MEDS ORDERED: PHENYLEPHRINE 100MCG/ML 5ML SYR ONE (14:26)
[2019-12-31] MEDS ORDERED: DEXAMETHASONE SOD INJ 4 MG/ML VIAL ONE (14:26)
[2019-12-31] MEDS ORDERED: ONDANSETRON INJ 2 MG/ML 2 ML VIAL ONE (14:26)
--- NOTE | 2019-12-31 14:47 | Hospitalist Progress Note ---
Date of Service December 31, 2019 Assessment & Plan (1) SHABANA (acute kidney injury): Baseline appears to be ~0.7. Cr was 1.4 on admission, then down, but now creeping back up. - Bolus of IV fluids on 12/27. - On 12/28, had improved to 1.35, but back up to 1.45 on 12/29. Discussed with Dr. Katz. - Obstructive kidney stone found. Lithotripsy and stent done on 12/[address] Murcia. Will keep overnight, then plan for final day of antibiotics on 12/31. (2) Bacteremia: Enterococcus faecalis on 12/22 due to UTI. - TTE and ARLYN both negative for endocarditis. - Plan for ampicillin x 5 days from start (End date: 01/01/2020). (3) CAD (coronary artery disease): No chest pain or other sign/symptom of ischemia. - Restarted home carvedilol on 12/27 - Continue ASA & statin (4) Hypertension: BP is 170/85 today. - Hold home lisinopril for SHABANA - Restarted home beta-tiffany on 12/27; return to home dose on 12/29 given continued hypertension. (5) Urinary incontinence: - Continue home oxybutynin PRN (6) DVT prophylaxis: Heparin 5,000 units SQ Q12h Admission and Anticipated Discharge Date Admission Date: December 23, 2019 Subjective Reports she will "do what she needs to do" in order to get home and be healthy. Otherwise, feels well. Reports no fevers/chills, chest pain, shortness of breath, abdominal pain, nausea, or vomiting. Physical Exam Constitutional: WD/WN, vitals as above Eyes: EOM intact bilaterally; no conjunctival abnormality ENMT: external ear and nose normal, oropharynx normal Neck: trachea midline, no thyromegaly normal visual inspection Respiratory: normal respiratory effort, lungs clear to auscultation no respiratory distress Cardiovascular: RRR, no murmur, no edema Gastrointestinal (Abdomen): Inspection/Auscultation: abdomen normal to inspection; abdomen not distended Musculoskeletal: no cyanosis or clubbing, extremities motor strength 5/5 Skin: no rashes, warm and dry Neurologic: moves all extremities and awake Psychiatric: Orientation: alert, oriented to person and cooperative Results & Data Results & Data ([facility]) Vital Signs (Past 12 Hours) Vital Signs Temp Pulse Resp BP Pulse Ox 12/31/19 12:55 37.0 C 80 16 185/78 H 100 12/31/19 08:00 36.9 C 84 18 162/84 H 95 PG Care Time/CCT Total # of Minutes Spent Total Time Spent with Patient: Total time spent is greater than 50% in coordination of care (as documented) at patient's floor/unit and/or counseling patient: Coding Level of Care Code 16086 Subseq Hosp Care Lvl 2 Diagnoses SHABANA (acute kidney injury) N17.9 Bacteremia R78.81 CAD (coronary artery disease) I25.10 Hypertension I10 Urinary incontinence R32 DVT prophylaxis Z29.9
--- NOTE | 2019-12-31 15:04 | Operative Report ---
PG Post Operative Report Pre & Post Diagnosis Operation Date: 12/27/19 13:30 <No data on this case meets the specified criteria> Operation Date: 12/31/19 07:00 Pre-Op Diagnosis: (1) Right ureteral stone: (2) Hydronephrosis, right: Post-Op Diagnosis: (1) Right ureteral stone: (2) Hydronephrosis, right: I identified the patient and participated in the time-out.: Yes Procedure Operation Date: 12/27/19 13:30 Actual Procedures p Echo Transesophageal - Todd Cheung MD s Echo Color Flow - Todd Cheung MD s Echo Doppler Complete - Todd Cheung MD Operation Date: 12/31/19 07:00 Actual Procedures p Cystoscopy, Right Ureteronephroscopy, Laser Lithotripsy, Stent I nsertion(Right) - Todd Murcia MD Surgeon Gunner Murcia MD Phone Counselor none Estimated Blood Loss 0 Findings Consistent with Post-Op Diagnosis Specimens Stone for chemical analysis Description of Procedure The patient was identified in the preoperative holding area, appropriate informed consents were reviewed and completed and the patient was transferred to the operative suite. Upon arrival, appropriate antibiotics and anesthesia were administered and the patient was placed in dorsal lithotomy position and prepped and draped in sterile fashion. To begin the case I passed a 22 [place] cystoscope per urethra. Inspection revealed healthy appearing bladder with ureteral orifices in orthotopic position. Turned my attention to the right UO and cannulated with a sensor wire and a 10 [place] double-lumen catheter. There was a large opacity approximately 8 cm above the bladder and the wire was able to navigate beyond this but with resistance. I left the wire in the mid ureter and withdrew the 10 [place] double-lumen catheter. I then reentered with a semirigid ureteroscope and visualized a stone in the mid ureter. The wire had tunneled submucosally and I repositioned it after beginning to treat the stone and clearing space in the ureter. I then continued to fragment the stone until it was in the pieces that I thought I could irrigate out of the ureter. The majority of these pieces were irrigated out although there were several small fragments still remaining. These were all safe for spontaneous passage and submillimeter in size. I placed a 6 [place] by 24 cm double-J ureteral stent and concluded the case. She was extubated and taken to the PACU in stable condition. There were no complications. I attest to the content of the Intraoperative Record and any orders documented therein. Any exceptions are noted below.
--- NOTE | 2019-12-31 15:08 | Fluoroscopy Report ---
FL KUB CLINICAL HISTORY: RT SIDE STENT PLACEMENT COMPARISON STUDY: None. FLUOROSCOPY TIME: 16 seconds. FINDINGS: Single fluoroscopic spot image of the abdomen demonstrates the proximal portion of the uret eral stent which appears in good position. The distal portion is not included on this study. IMPRESSION: Fluoroscopy provided for right ureteral stent placement. ACT 112: Negative or not required by law. Electronically signed by: Dann Shaikh M.D. 12/31/2019 3:07 PM
--- NOTE | 2019-12-31 15:54 | Anesthesiology Progress Note ---
Date of Service December 31, 2019 Anesthesia Post Procedure Vital Signs Vital Signs: Temp Pulse Pulse Resp BP BP Pulse Ox 12/31/19 15:45 36.6 C 73 14 156/74 H 100 12/31/19 15:35 36.6 C 74 16 154/83 H 100 12/31/19 15:25 70 12 148/67 H 100 12/31/19 15:15 77 14 147/67 H 100 12/31/19 15:08 36.7 C 74 12 167/83 H 97 12/31/19 12:55 37.0 C 80 16 185/78 H 100 12/31/19 08:00 36.9 C 84 18 162/84 H 95 12/30/19 23:42 36.7 C 90 20 156/75 H 95 12/30/19 19:53 36.7 C 81 16 184/94 H 96 12/30/19 16:49 36.7 C 75 18 170/78 H 98 Transfer of Care Handoff Completed per policy Notes Mental Status: alert / awake / arousable Patient Amnestic to Procedure: Yes Nausea / Vomiting: adequately controlled Pain: adequately controlled Airway Patency, RR, SpO2: stable & adequate BP & HR: stable & adequate Hydration State: stable & adequate Anesthetic Complications: no major complications apparent
[2019-12-31] MEDS: carvediloL 25 MG TAB PO SCH (21:04)
[2019-12-31] MEDS: ATORVASTATIN 40 MG TAB PO SCH (21:13)
[2020-01-01] MEDS: AMPICILLIN 2,000 MG in SODIUM CHLOR 0.9% AD-VAN 100 ML IV SCH ×3 (03:29→13:58)
[2020-01-01 06:37] LABS: Hematocrit (blood only) 34.9 % (37-47); Hemoglobin 11.7 g/dL (12.0-16.0); Mean Corpuscular Hemoglobin 29.5 pg (25-34); Mean Corpuscular Hgb Conc 33.5 g/dL (32-36); Mean Corpuscular Volume 87.9 fL (80-100); Platelet Count 226 K/uL (130-400); RDW Standard Deviation 43.8 fL (36.4-46.3); Red Blood Count 3.97 M/uL (4.2-5.4); White Blood Count 12.87 K/uL (4.8-10.8)
[2020-01-01 07:03] LABS: BUN Creatinine Ratio 19.1 (10-20); Calcium 9.6 mg/dl (8.5-10.1); Creatinine Clr Calc Pharmacy 41.8 ml/min; Est GFR (African American) 60.9; Est GFR (Non-African American) 52.5; Potassium 4.2 mmol/L (3.5-5.1)
[2020-01-01] MEDS: carvediloL 25 MG TAB PO SCH (07:43)
[2020-01-01] MEDS: ASPIRIN 81 MG ECTAB PO SCH (07:44)
[2020-01-01] MEDS: amLODIPine BESYLATE 5 MG TAB PO SCH (07:44)
[2020-01-01] MEDS: HEPARIN SOD 5,000 UNIT/0.5 ML VIAL SQ SCH (07:44)
--- NOTE | 2020-01-01 08:56 | Urology Progress Note ---
Date of Service January 01, 2020 Assessment & Plan (1) Right ureteral stone: (2) Hydronephrosis, right: 74yo F admitted with bacteremia secondary to UTI and was found to have a 15mm right distal ureteral stone with hydronephrosis -POD #1 s/p Cystoscopy, Right Ureteronephroscopy, Laser Lithotripsy, Stent Insertion -Patient doing well post procedure -Remains afebrile, creatinine improved today -Tolerating stent with minimal discomfort -Patient is stable for discharge from a perspective -Will plan to follow-up with urology outpatient for stent removal -She is agreeable to above plan, all questions were answered Thank you for allowing us to participate in the acute care of Mrs. Roy. Please reconsult us with additional questions, concerns or changes in patient status. Admission and Anticipated Discharge Date Admission Date: December 23, 2019 Supervising Physician Co-Signing Physician Notes Ok for discharge. Will need f/u for stent removal. Subjective POD #1 s/p Cystoscopy, Right Ureteronephroscopy, Laser Litho, stent insertion Patient examined at bedside this AM Awake, sitting up in bed on arrival Denies any back, flank, or suprapubic pain Denies fevers or chills Tolerating diet, no nausea or vomiting Some hematuria as expected Denies dysuria Feels like she is emptying her bladder well Eager to go home Offers no additional complaints today Chart review: Afebrile Wbc 12.87 Hgb 11.7 Cr 1.04 Continues on IV Ampicillin q6h Review of Systems Constitutional: as per Subjective / HPI Gastrointestinal: as per Subjective / HPI Genitourinary: as per Subjective / HPI Musculoskeletal: as per Subjective / HPI Physical Exam Constitutional: well developed and well nourished; no acute distress and not ill appearing Respiratory: normal respiratory effort and able to speak in complete sentences Cardiovascular: Extremities: no calf tenderness Gastrointestinal (Abdomen): Inspection/Auscultation: abdomen normal to inspection; abdomen not distended Neurologic: moves all extremities and awake; not confused Psychiatric: Orientation: alert, oriented x 3 and cooperative Genitourinary: no CVA tenderness Results & Data ([facility]) Vital Signs (Past 12 Hours) Vital Signs Temp Pulse Resp BP Pulse Ox 01/01/20 07:16 37.0 C 76 18 148/80 H 92 12/31/19 23:28 36.6 C 77 20 145/75 H 92 PG Care Time/CCT Total # of Minutes Spent Total Time Spent with Patient: Total time spent is greater than 50% in coordination of care (as documented) at patient's floor/unit and/or counseling patient: Coding Level of Care Code 62958 Subseq Hosp Care Lvl 2 Diagnoses Right ureteral stone N20.1 Hydronephrosis, right N13.30
--- NOTE | 2020-01-01 12:01 | Nephrology Progress Note ---
Date of Service January 01, 2020 Assessment & Plan (1) SHABANA (acute kidney injury): 74 yo f with no prior h/o CKD admitted to the hospital with sepsis with bacteremia and UTI. On admission renal function was normal however developed SHABANA over last few days, creatinine staying around 1.4-1.5. Urinalysis with low grade proteinuria, hematuria and pyuria. Fever resolved, no skin rash or arthralgia. Renal ultrasound was notable for moderate hydronephrosis. SHABANA With right-sided hydronephrosis with 1.5 centimeter ureteral stone. waiting for cystoscopy and lithotripsy today SHABANA resolved after cystoscopy and lithotripsy yesterday. overall she is clinically stable and asymptomatic, no fever, chills, no flank pain. -- monitor intake output -- Resume lisinopril Will sign off, no outpatient Nephrology follow-up needed at this time. Thank you for the consultation. (2) Bacteremia: (3) Hydronephrosis: Admission and Anticipated Discharge Date Admission Date: December 23, 2019 Glendy Schuler was seen and examined in her room this morning. She is feeling much better today, denies any shortness of breath, chest pain, abdominal pain, fever or chills. Voiding normally. Appetite normal. Renal function improved to creatinine 1.0. Review of Systems Review of Systems: All systems reviewed & are unremarkable except as noted in Subjective Physical Exam Constitutional: well developed and well nourished; no acute distress Respiratory: normal respiratory effort, lungs clear to auscultation Cardiovascular: RRR, no murmur, no edema Neurologic: moves all extremities and awake; not confused Psychiatric: A+Ox3, euthymic affect Results & Data ([facility]) Vital Signs (Past 12 Hours) Vital Signs Temp Pulse Pulse Resp BP BP Pulse Ox 01/01/20 10:20 37.0 C 76 74 18 172/89 H 148/80 H 92 01/01/20 07:16 37.0 C 76 18 148/80 H 92 PG Care Time/CCT Total # of Minutes Spent Total Time Spent with Patient: Total time spent is greater than 50% in coordination of care (as documented) at patient's floor/unit and/or counseling patient: Coding Level of Care Code 69791 Subseq Hosp Care Lvl 2 Diagnoses SHABANA (acute kidney injury) N17.9 Bacteremia R78.81 Hydronephrosis N13.30
[2020-01-01 13:41] LABS: Complement C3 145 mg/dL (83-193); Complement Total(CH50) 60 U/mL (31-60)
[2020-01-05 04:44] LABS: Component 2 DNR; Source KIDNEY
--- NOTE | 2020-01-10 07:29 | Discharge Summary ---
Date of Service January 01, 2020 Admission HPI Per Admitting Provider Ruben Olvera" Manuela She has been quarantined at home. Started to feel very tired a day ago. She did not feel feverish at home, didnt to check her temperature. Her appetite is decreased at baseline, but no changes. No nausea or vomiting. No abdominal pain. No belly pain with food. She had not had any muscle or joint pains. No shortness of breath or difficulty breathing. No cough. No change in sense of smell or ta luanne. She was worried about the fatigue. No numbness of tingling. No joint swelling. No dysuria, polyuria, or oliguria. She goes out walking everyday with her dog. She has not pulled any ticks off of her, but pulls them off her dog frequently. No rashes or bullseye. Waller snot live with anyone, has not had any sick contacts. MedHx: Past OH many years ago. Medications: Reviewed with pt. Last medications this morning. Manges her medications. SHX: Reviewed Allergic: Denies allergies Social: Denies tobacco product use. Denies alcohol use. No recreational drug use. Gets around ok at home. Full Code: Principal Diagnosis acute kidney injury Discharge Exam Constitutional: WD/WN, vitals as above Eyes: EOM intact bilaterally; no conjunctival abnormality ENMT: external ear and nose normal, oropharynx normal Neck: trachea midline, no thyromegaly normal visual inspection Respiratory: normal respiratory effort, lungs clear to auscultation no respiratory distress Cardiovascular: RRR, no murmur, no edema Gastrointestinal (Abdomen): Inspection/Auscultation: abdomen normal to inspection; abdomen not distended Musculoskeletal: no cyanosis or clubbing, extremities motor strength 5/5 Skin: no rashes, warm and dry Neurologic: moves all extremities and awake Psychiatric: Orientation: alert, oriented to person and cooperative Discharge Data Allergies Allergy/AdvReac Type Severity Reaction Status Date / Time No Known Allergies Allergy Unknown Verified 12/23/19 22:26 Consultations 12/23/19 21:41 ED Decision to Admit Stat 12/24/19 11:22 Consult Infectious Diseases Routine 12/30/19 10:33 Consult Nephrology Routine 12/30/19 14:01 Consult Urology Routine Procedures Performed Operation Date: 12/27/19 13:30 Actual Procedures p Echo Transesophageal - Todd Cheung MD s Echo Color Flow - Todd Cheung MD s Echo Doppler Complete - Todd Cheung MD Operation Date: 12/31/19 07:00 Actual Procedures p Cystoscopy, Right Ureteronephroscopy, Laser Lithotripsy,(Right) - Todd Murcia MD s Stent Insertion(Right) - Todd Murcia MD Ordered Studies 12/30/19 10:30 US renal/blad retro comp Routine 12/30/19 12:15 CT abd pelvis wo con Routine 12/31/19 13:30 FL KUB Routine FL fluoroscopy <1hr Routine Hospital Course (1) SHABANA (acute kidney injury): Baseline appears to be ~0.7. Cr was 1.4 on admission, then down, but now creeping back up. - Bolus of IV fluids on 12/27. - On 12/28, had improved to 1.35, but back up to 1.45 on 12/29. Discussed with Dr. Katz. - Obstructive kidney stone found. Lithotripsy and stent done on 12/[address] Murcia. will continue antibitoics for 2 more days at home to compete 7 day course. Granddaughter is aware. (2) Bacteremia: Enterococcus faecalis on 12/22 due to UTI. - TTE and ARLYN both negative for endocarditis. - Plan for ampicillin x 7 days from start (3) CAD (coronary artery disease): No chest pain or other sign/symptom of ischemia. - Restarted home carvedilol on 12/27 - Continue ASA & statin (4) Hypertension: BP is 170/85 today. - Hold home lisinopril for SHABANA - Restarted home beta-tiffany on 12/27; return to home dose on 12/29 given continued hypertension. (5) Urinary incontinence: - Continue home oxybutynin PRN (6) DVT prophylaxis: Heparin 5,000 units SQ Q12h Total Time Total Time Spent Total Time Spent (In Minutes): 35 Total Time Includes: Examination of the Patient, Discharge Planning and Medication Reconciliation Discharge Plan Discharge Items Patient Disposition: Home - Self-Care Reason For Visit: FEVER, SEPSIS Discharge Diagnosis: Urinary tract infection causing bacteremia Activity: Resume your previous activity Non-emergency contact: Primary Care Provider Call non-emergency contact if: you have any medication questions Follow-up/Referrals: Tanisha Burnett D.O. [Primary Care Provider] - 01/07/20 2:00 pm (You have a follow up appt on MondayJan 06 at 2pm. Please arrive 15 minutes prior to your appt time. It is important that you keep your appt, if this appt does not fit your schedule please call [phone] to reschedule. ) Diet: Regular Addtl Attending Provider Instructions: You were found to have bacteria in your blood stream. The source appears to have been strong case of a urinary tract infection. Fortunately, there was no evidence the bacteria was able to stick onto the valves of your heart. You will be treated on antibiotics for 2 more days. Your granddaughter, Brooke, will help with them, as they need to be every 6 hours. Please return to the hospital if you have any fever, chills, weakness. Plan to followup with Urology for outpatient: for stent removal Pending Studies at Discharge: No Stand-Alone Forms: [facility], Smoking Cessation Medications and DC Order Prescriptions: New ampicillin sodium 2 gram recon soln 2 g IV Q6H Qty: 11 RF: 0 Continued atorvastatin 40 mg tablet 40 mg PO HS RF: 0 oxybutynin chloride 5 mg tablet extended release 24hr 5 mg PO BID PRN (Reason: OVER ACTIVE BLADDER) RF: 0 lisinopril 5 mg tablet 5 mg PO QAM RF: 0 aspirin 81 mg Tablet,Delayed Release (Dr/Ec) 81 mg PO QAM RF: 0 carvedilol 25 mg tablet 25 mg PO BID Qty: 180 RF: 0 Discharge Orders: Discharge Order (Routine); Ordered 01/01/20 Ordered By: Juan Azar Admission Data Admit Date/Time: 12/23/19 23:18 Attending Provider: Juan Azar Admit Provider: Phoenix Jalloh Primary Care Provider: Tanisha Burnett Other Providers: Josiah Vides ; Frantz Mccallum ; Reji Rodriguez ; Solomon Ly ; Glen Mojica I. ; Fabricio Kam II ; Gayathri Rodriguez ; Akil Ho ; Citlalli Katz ; Quoc Dillon Other Interventions: Discharge Summary Assessment (RN) Last Done: 01/01/20 10:20 Coding Level of Care Code D/C Day Management >30 mins Diagnoses SHABANA (acute kidney injury) N17.9 Bacteremia R78.81 CAD (coronary artery disease) I25.10 Hypertension I10 Urinary incontinence R32 DVT prophylaxis Z29.9
--- NOTE | 2020-01-14 14:25 | Coding Query ---
PRESENT ON ADMISSION QUERY To promote full compliance with coding requirements relating to pateint care, physician participation is requested in all cases of invoice coder uncertainty. Please assist us with the question(s) below: Please place an X within the parenthesis (x). The following diagnosis(es) listed in this patient's medical record require physician assistance to determine if they were present on admission (POA) or not. Please advise for each diagnosis whether it was present on admission, not present on admission, or if it was clinically undetermined. 1. SHABANA (ACUTE KIDNEY INJURY) DOCUMENTATION BEGINS ON ER & H&P, BUT NEPHROLOGY CONSULTATION AND PN'S SAY IT DEVELOPED AFTER ADMIT) (x ) Present On Admission ( ) Not Present On Admission ( ) Clinically Undetermined 2. OBSTRUCTIVE KIDNEY STONE (HYDRONEPHROSIS AND OBSTRUCTIVE KIDNEY STONE DOCUMENTATION BEGINS 12/30/19) (x ) Present On Admission ( ) Not Present On Admission ( ) Clinically Undetermined Thank you Fiaza Underwood *Definition of the present on admission (POA)-Present on admission is defined as present at the time the order for inpatient admission occurs. Conditions that develop during an outpatient encounter prior to a written order for inpatient admission (including emergency department, observation, or outpatient surgery) are considered present on admission. MTDD
--- NOTE | 2020-01-14 14:27 | Coding Query ---
CODING QUERY To promote full compliance with coding requirements relating to patient care, provider participation is requested in all cases of cylinder press feeder uncertainty. Please assist us with the question(s) below: Coding Question(s): There is documentation of Sepsis and Bacteremia in the record. Due to both being documented, please clarify below, in your clinical opinion. ( ) Sepsis ( ) Bacteremia ( x) Other: Please Specify__septicemia Physician's Response(s): Thank you Faiza Underwood Principal Diagnosis: "that condition established after study, to be chiefly responsible for occasioning the admission of the patient to the hospital for care." Co-Existing Principal Diagnosis: "when two or more diagnoses equally meet the criteria for principal diagnosis as determined by the circumstances of admission, diagnostic work up, and/or therapy provided, and the Alphabetic Index, Tabular List, or another coding guideline does not provide sequencing direction, any one of the diagnoses may be sequenced first." "When the physician has documented what appears to be a current diagnosis in the body of the record, but has not included the diagnosis in the final diagnostic statement, the physician should be asked whether the diagnosis should be added." (Source Coding Clinic 2 QTR90. p3-4) FERMIN
== END 2020-01-01 16:07 | disposition home or self-care (01) | DRG 854 ==
LOC: ED 19:08 → 2N 23:18 → SUATTDRO 23:18 → 2N 23:48

== ENCOUNTER 2023-12-03 12:16 | Inpatient (IN) ==
--- OUTSIDE RECORDS SUMMARY | 2023-12-03 12:20 | External Medical Summary | Summary of Care ---
Author Name Unknown Organization [facility] Address [address] [place] [address] Phone [phone] Care Team Providers Care Hydroelectric Station Operator Name Role Phone Tanisha Burnett The DO Primary Care Provider Reason for Visit * Reason Onset Date Comments Test Results 06/12/2023 Encounter Details Date Type Department Care Team (Late st Contact Info) Description 06/12/2023 Telephone Cardiology, [facility] [address] [place] [place] [address] Ila Kumar PA-C [address] [facility] [place], [place] [id number] Test Results Allergies Active Allergy Reactions Criticality Noted Date Comments No Known Drug Allergy 02/10/2004 documented as of this encounter (statuses as of 06/12/2023) Medications Medication Sig Dispensed Refills Start Date End Date Status SIMETHICONE 125 MG PO CHEWIndications:Fla tulence, eructation and gas pain 1-2 TABLETS before MEALS AND AT BEDTIME NEEDED 90 Tab 3 10/29/2013 Active Acyclovir 400 MG Oral Tablet (Zovirax) Take by mouth 1 Tablet in the morning AND 1 Tablet at noon AND 1 Tablet in the evening AND 1 Tablet before bedtime. 0 03/16/2021 Active Acyclovir 5 % External Cream (Zovirax) APPLY TO AFFECTED AREA TWICE A DAY AND NEEDED 0 03/17/2021 Active Dorzolamide HCl-Timolol Mal PF 2-0.5 % Ophthalmic Solution INSTILL 1 DROP INTO BOTH EYES TWICE A DAY 0 03/25/2021 Active Multivitamin Adult Oral Tablet Chewable Take by mouth . 0 Active Aspirin EC 81 MG Oral Tablet Delayed Release Take 1 Tablet by mouth in the morning. 0 03/30/2021 Active Ibuprofen 800 MG Oral Tablet (Motrin) TAKE ONE TABLET BY MOUTH TWICE A DAY NEEDED 180 Tablet 3 12/21/2021 Active Atorvastatin Calcium 40 MG Oral Tablet (Lipitor) TAKE ONE TABLET BY MOUTH IN THE EVENING 90 Tablet 3 10/26/2022 Active oxyBUTYnin Chloride ER 5 MG Oral Tablet Extended Release 24 Hour (Ditropan XL) TAKE ONE TABLET BY MOUTH TWICE A DAY 180 Tablet 3 10/26/2022 Active Lisinopril 5 MG Oral Tablet (Prinivil) TAKE ONE TABLET BY MOUTH EVERY DAY 90 Tablet 3 10/26/2022 Active Nitroglycerin 0.4 MG Sublingual Tablet Sublingual (Nitrostat) PLACE 1 TABLET UNDER THE TONGUE EVERY 5 MINUTES UP TO 3 DOSES NEEDED FOR CHEST PAIN. IF NO RELIEF CALL 911 OR GO TO ER 25 Tablet 11 02/15/2023 02/15/2024 Active Additional Information Patient not taking.Reported on 06/01/2023 Carvedilol 12.5 MG Oral Tablet (Coreg)Indications: Chronic ischemic heart disease,Coronary artery disease involving sleetmute coronary artery of sleetmute heart without angina pectoris,CAD S/P percutaneous coronary angioplasty TAKE ONE TABLET BY MOUTH EVERY MORNING AND ONE TABLET BEFORE BEDTIME 180 Tablet 3 03/16/2023 03/15/2024 Active Latanoprost 0.005 % Ophthalmic Solution (Xalatan) INSTILL 1 DROP INTO BOTH EYES EVERY DAY AT NIGHT 0 05/18/2023 Active documented as of this encounter (statuses as of 06/12/2023) Active Problems Problem Noted Date Diagnosed Date Coronary artery disease invo lving sleetmute coronary artery of sleetmute heart without angina pectoris 11/24/2022 HTN, goal below 140/90 11/24/2022 Dyslipidemia, goal LDL below 70 11/24/2022 CAD S/P percutaneous coronary angioplasty 2022 S/P repair of paraesophageal hernia 07/23/2013 DVT prophylaxis 06/25/2013 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 Overview: ICD-10 update of inactive term documented as of this encounter (statuses as of 06/12/2023) Immunizations Name Administration Dates Next Due COVID-19 mRNA, LNP-s, No Pre serve, 2-Dose Series (Moderna) 06/11/2020,05/14/2020 COVID-19 mRNA, LNP-s, No Pre serve, 2-Dose Series (Pfizer) 12/13/2020 Seasonal Influenza, Quadrivalent Hd, 65+ Yrs documented as of this encounter Social History Tobacco Use Types Packs/Day Years Used Date Smoking Tobacco: Never Smokeless Tobacco: Never Alcohol Use Standard Drinks/Week Comments No 0 (1 standard drink = 0.6 oz pur e alcohol) Hunger Vital Sign Answer Date Recorded Within the past 12 months, y ou worried that your food would run out before you got the money to buy more. Never true 09/24/19 23 Within the past 12 months, t he food you bought just didn't last and you didn't have money to get more. Never true 09/23/2022 Sex and Gender Information Value Date Recorded Sex Assigned at Not on file Gender Identity Not on file Sexual Orientation Not on file Job Start Date Occupation Industry Not on file Not on file Not on file documented as of this encounter Functional Status Functional Status Response Date of Assess ment Are you deaf or do you have serious difficulty h earing? No 07/11/2013 Are you blind or do you have serious difficulty seeing, even when wearing glasses? No 07/11/2013 Do you have serious difficul ty walking or climbing stairs? (5 years old or older) No 07/11/2013 Do you have difficulty dress ing or bathing? (5 years old or older) No 07/11/2013 Because of a physical, menta l, or emotional condition, do you have difficulty doing errands alone such as visiting a doctor s office or shopping? (15 years old or older) No 07/12/19 14 Cognitive Status Response Date of Assessm ent Because of a physical, menta l, or emotional condition, do you have serious difficulty concentrating, remembering, or making decisions? (5 years old or older) No 07/11/2013 documented as of this encounter Miscellaneous Notes * Telephone Encounter - Tiesha Castillo LPN - 06/12/2023 1:12 PM EDT Letter sent Order placed * Telephone Encounter - Tiesha Castillo LPN - 06/12/2023 1:09 PM EDT ----- Message from LUIS FERNANDO Oliver sent at 06/09/2023 8:27 AM EDT ----- Results reviewed in coverage of Ila Kumar PA-C Renal function stable. LDL 74--borderline controlled. Unsure if this was fasting blood work or not. Recommend lifestyle modifications and dietary changes to improve cholesterol. For now continue atorvastatin 40 mg daily. Repeat a fasting lipid panel in [address] orders under Ila Kumar PA-C. documented in this encounter Plan of Treatment Upcoming Encounters Date Type Department Care Team (Late st Contact Info) Description 12/21/2023 8:00 AM EST Office Visit Cardiology [address] [place] [address] Ila Kumar PA-C [address] [place] [id number] Scheduled Orders Name Type Priority Associated Diagnoses Orde r Schedule LIPID PANEL WITH DIRECT LDL IF TG IS HIGH Lab Routine Dyslipidemia, goal LDL below 70 Expected: 09/11/2023 (Approximate), Expires: 06/11/2024 Health Maintenance Due Date Last Done Comments DXA Scan 1944 Depression Screening 1956 Albumin/Creatinine Ratio 1962 Hepatitis C Screening 1962 DTaP,Tdap,and Td Vaccines (1 - Tdap) 1963 Zoster Vaccines (1 of 2) 1994 Pneumococcal Vaccine: 65+ Years (2 of 2 - PCV) 2009 01/31/2008 COVID-19 Vaccine ( season) 2022 12/13/2020, 06/11/2020, 05/14/2020 Influenza Vaccine (FLU shot) (Season Ended) 2023 12/13/2020 GFR 05/31/2024 06/01/2023, 04/15, 02/25/2021, Additional history exists GARDASIL-HPV IMMUNIZATION SERIES Aged Out No longer eligible based on patient's age to complete this topic Hepatitis B Aged Out No longer eligi ble based on patient's age to complete this topic MENINGOCOCCAL (MENACTRA/MENVEO) Aged Out No longer eligible based on patient's age to complete this topic documented as of this encounter Medical Devices Implanted Type Area Twine Reeling Machine Operator Device Identifier Shelf Expiration Date Model / Serial / Lot Alloderm 2x4cm [id number] ( 8 Units) - [id number] Implanted:Qty : 8 on 07/11/2013 at OR [facility] Tissue - Human N/A: Esophagus LIFE CELL ANA 01/12/2015 [id number] / / [id number] documented as of this encounter Visit Diagnoses Diagnosis Dyslipidemia, goal LDL below 70- Primary Other and unspecified hyperlipidemia documented in this encounter Advance Directives Latest Code Status on File Code Status Date Activated Date Inactivated Comments Full Code 07/11/2013 6:09 AM 07/13/2013 4:18 PM This order reflects the patients wishes and were consensually agreed upon. Care Teams Hydroelectric Station Operator Relationship Specialty Start Date End Date Kyara Burnett DO [address] [place] [id number] PCP - General Family Medicine 06/16/16 documented as of this encounter
[2023-12-03] MEDS: MoRPHine SULFATE 4 MG/ML 1 ML CARP\\VIAL IV STA (13:16)
[2023-12-03] MEDS: ONDANSETRON INJ 2 MG/ML 2 ML VIAL IV STA (13:16)
[2023-12-03 14:00] LABS: Basophils # (auto) 0.03 K/uL (0.00-0.20); Basophils % (auto) 0.3 %; Eosinophils # (auto) 0.02 K/uL (0.00-0.50); Eosinophils % (auto) 0.2 %; Hematocrit (blood only) 42.4 % (37.0-47.0); Hemoglobin 14.3 g/dl (12.0-16.0); Immature Granulocytes # (auto) 0.03 K/uL (0.01-0.20); Immature Granulocytes % (auto) 0.3 %; Lymphocytes # (auto) 1.15 K/uL (1.20-3.40); Mean Corpuscular Hemoglobin 29.7 pg (25.0-34.0); Mean Corpuscular Hgb Conc 33.7 g/dL (32.0-36.0); Mean Corpuscular Volume 88.1 fL (80.0-100.0); Mean Platelet Volume 10.3 fL (9.4-12.4); Monocytes # (auto) 0.53 K/uL (0.11-0.59); Monocytes % (auto) 5.1 %; Neutrophils # (auto) 8.72 K/uL (1.40-6.50); Neutrophils % (auto) 83.1 %; Platelet Count 151 K/uL (130-400); RDW Coefficient of Variation 13.3 % (11.5-14.5); RDW Standard Deviation 43.3 fL (36.4-46.3); Red Blood Count 4.81 M/uL (4.20-5.40); White Blood Count 10.48 K/ul (4.8-10.8)
[2023-12-03 14:21] LABS: Alanine Aminotransferase 16 U/L (7-52); Albumin Globulin Ratio 1.4 (0.9-2); Albumin Level 4.7 gm/dl (3.4-5.0); Alkaline Phosphatase 118 U/L (34-104); Anion Gap 10 (3-11); BUN Creatinine Ratio 20.2 (10-20); Bilirubin,Total 1.4 mg/dl (0.2-1.0); Blood Urea Nitrogen 20 mg/dl (6-23); Calcium 10.3 mg/dl (8.6-10.3); Carbon Dioxide 22 mmol/L (21-32); Chloride 110 mmol/L (98-107); Globulin 3.3 gm/dl (2.5-4.0); Glucose 127 mg/dl (70-99(Fasting)); Lipase 11 U/L (11-82); Sodium 142 mmol/L (136-145)
[2023-12-03] MEDS: OPTIRAY 320 100ml IV ONE (14:36)
--- NOTE | 2023-12-03 14:59 | CT Scan Report ---
CT abd pelvis IV con only, CT lumbar spine w con CLINICAL HISTORY: right flank pain, vomiting TECHNIQUE: Helical axial images of the abdomen and pelvis were obtained and displayed. Automated dose lowering techniques and/or adjustment according to patient size were utilized for this exam. Dedicat ed images of the lumbar spine were obtained. This exam was performed with intravenous contrast. CT DOSE: 991.95 mGy.cm COMPARISON: Comparison is made to CT abdomen pelvis 12/30/2019 FINDINGS: Lower chest: Cardiomegaly is partially visualized. Liver: Unremarkable. No focal lesions are seen. Gallbladder and biliary tree: No calcified gallstones. Normal caliber wall. No intra- or extrahepatic biliary ductal dilation. Pancreas: Unremarkable, no focal lesions. Spleen: Unremarkable. Adrenals: Unremarkable. Kidneys and ureters: Right obstructive stone is seen with hydronephrosis and hydroureter. Bladder: Unremarkable. Reproductive organs: Unremarkable. Bowel: A hiatal hernia is seen. Diverticulosis is seen without diverticulitis. Lymph nodes Retroperitoneal: Unremarkable. Pelvic: Unremarkable. Mesenteric: Unremarkable. Peritoneum: Normal. Vessels: Atherosclerotic calcifications are seen. Abdominal wall: Unremarkable. Bones: Subacute appearing rib fractures are seen on the right. Degenerative changes are seen in the s pine. IMPRESSION: 1. Obstructive right UVJ stone with associated hydronephrosis. 2. Diverticulosis without diverticulitis. 3. Additional findings as above. ACT 112: Negative or not required by law. Electronically signed by: Marcos Jay M.D. 12/03/2023 2:56 PM
[2023-12-03 15:38] LABS: Appearance Urine Cloudy (Clear); Bacteria Urine Automated None Seen (None Seen); Bilirubin Urine Negative (Negative); Blood Urine 2+ (Negative); Calcium Oxalate Crystals Urine Present (None Prsent); Color Urine Yellow; Glucose Urine UA Negative (Negative); Ketones Urine Trace (Negative); Leukocyte Esterase Urine 3+ (Negative); Nitrite Urine Negative (Negative); Protein Urine Trace (Negative); Specific Gravity Urine 1.027 (1.000-1.030); Urobilinogen Urine Negative (Negative); WBC Urine Automated >50 /hpf (0-5)
[2023-12-03 15:41] LABS: Potassium 3.6 mmol/L (3.5-5.1)
[2023-12-03] MEDS: PROMETHAZINE 12.5 MG/50.5 ML BAG IV STA (16:06)
[2023-12-03] MEDS: PIPERACILLIN/TAZOBACTAM 4.5 GM/100 ML BAG IV ONE (16:48)
--- NOTE | 2023-12-03 17:34 | History & Physical Report ---
Date of Service December 03, 2023 Assessment & Plan (1) Nephrolithiasis: Plan: Patient with right UVJ stone approximately 5 mm. Patient admitted for pain control should be hydrated with normal saline parenteral morphine and Zofran will be utilized. Flomax is started. Renal function is stable at this time subsequently the patient will have urology consultation be kept n.p.o. after midnight. Patient and previous enterococcal UTI Zosyn was administered and will continue to be show urine culture is currently pending as well as blood culture (2) CAD (coronary artery disease): Plan: Patient typically on aspirin atorvastatin carvedilol and lisinopril. Aspirin and atorvastatin will be held. Carvedilol and lisinopril will be continued. (3) Hyperlipidemia: Plan Chemoprophylaxis is held at this time due to the possibility of intervention. History of Present Illness Primary Care Provider: Tanisha Burnett pt presented with right renal colic, has right UVJ stone, associated nausea , ls CT without spinal issues to cause pain. did have sepsis in 2019 from enterococcal uti treated with ampicillin pain and nausea are controlled after morphine and zofran given zosyn Allergies Allergy/AdvReac Type Severity Reaction Status Date / Time No Known Allergies Allergy Unknown Verified 12/03/23 16:50 Home Medications Medication Instructions Recorded Confirmed Type aspirin 81 mg tablet,delayed 81 mg PO QAM 04/30/19 12/03/23 History release atorvastatin 40 mg tablet 40 mg PO QPM 04/30/19 12/03/23 History lisinopril 5 mg tablet 5 mg PO QAM 04/30/19 12/03/23 History oxybutynin chloride 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 04/30/19 12/03/23 History tablet,extended release 24 hr carvedilol 12.5 mg tablet 12.5 mg PO AMHS 12/03/23 12/03/23 History dorzolamide 22.3 mg-timolol 6.8 1 drp OPB BID 12/03/23 12/03/23 History mg/mL eye drops latanoprost 0.005 % eye drops 1 drp OPB HS 12/03/23 12/03/23 History multivitamin 1 tab PO DAILY 12/03/23 12/03/23 History nitroglycerin 0.4 mg sublingual 0.4 mg sublingual UD PRN Chest Pain 12/03/23 12/03/23 History tablet Past Med/Surg History Problem List (Updated 01/16/20 @ 15:36 by Quoc Dillon MD) Nephrolithiasis Encounter for pre-operative examination Right ureteral stone Hydronephrosis, right Hydronephrosis Bacteremia Hypomagnesemia (Acute) SHABANA (acute kidney injury) (Acute) Sepsis (Acute) Fever H/O heart artery stent Nausea CAD (coronary artery disease) DVT prophylaxis Urinary incontinence Hyperlipidemia Chest pain (Acute) Precordial chest pain Hypertension (Chronic) Medical History (Updated 01/16/20 @ 15:36 by Quoc Dillon MD) No pertinent family history Vertigo Family History Father , Unsure of reason No problems noted. Mother , age 48 from ruptured ventral hernia complications No problems noted. 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 Head exam is normocephalic atraumatic Neck is without JVD, thyromegaly, or carotid bruits. Lungs are clear to auscultation, no focal loss of breath sounds Cardiac exam, Rhythm is regular.. No murmurs, rubs or gallops. Abdominal exam reveals normal bowel sounds, soft non tender, no masses Currently no CVA angle tenderness at this time Extremities are nonedematous and both pedal pulses are present Neurologic exam is alert and oriented, no focal loss of strength or sensation Skin is without bruises or rashes Psychologically is without concerns for anxiety or depression.. Results & Data Results & Data Vital Signs (Past 12 Hours) Vital Signs Temp Pulse Pulse Resp BP BP Pulse Ox 12/03/23 16:27 77 12/03/23 16:04 75 14 179/74 H 98 12/03/23 16:04 75 12 94 10/20/24 14:51 78 16 178/92 H 97 12/03/23 13:48 68 17 98 12/03/23 12:29 97.7 F 81 18 204/99 H 100 O2 Del Method 12/03/23 16:27 12/03/23 16:04 Room Air 12/03/23 16:04 Room Air 12/03/23 14:51 Room Air 12/03/23 13:48 Room Air 12/03/23 12:29 Room Air Laboratory Results Reviewed CBC reviewed chemistry Code Status & VTE Plan VTE Prophylaxis Plan VTE Prophylaxis will be ordered: Yes PG Care Time/CCT Total # of Minutes Spent Total Time Spent with Patient: Total time spent is greater than 50% in coordination of care (as documented) at patient's floor/unit and/or counseling patient: Coding Level of Care Code 98577 INT INP/OBS CARE 2MIN Diagnoses Nephrolithiasis N20.0 CAD (coronary artery disease) I25.10 Hyperlipidemia E78.5
[2023-12-03] MEDS ORDERED: ONDANSETRON INJ 2 MG/ML 2 ML VIAL IV PRN (19:14)
[2023-12-03] MEDS ORDERED: MoRPHine SULFATE 2 MG/ML CARP IV PRN (19:14)
[2023-12-03] MEDS ORDERED: MoRPHine SULFATE 4 MG/ML 1 ML CARP\\VIAL IV PRN (19:14)
[2023-12-03] MEDS ORDERED: KETOROLAC TROMETHAMINE 15 MG/ML VIAL IV PRN (19:14)
[2023-12-03] MEDS ORDERED: INFLUENZA VACC TS2024-25(65y+)/PF (IIV3) 0.5mL Syr IM ONE (19:16)
[2023-12-03] MEDS: SODIUM CHLORIDE 0.9% 1,000 ML IV SCH (19:51)
[2023-12-03] MEDS ORDERED: [UNRECOGNIZED DRUG - OTHER] BUCCAL PRN (20:00)
--- NOTE | 2023-12-03 20:08 | Urology Consultation ---
<Statement entered by Zackary Dunn MD - 12/04/23 07:54> I have discussed Ms. Roy's case with Suraj Hi PA-C and agree with the above documentation. No significant leukocytosis at this time, however urine is somewhat suspicious for infection. We will plan to reevaluate on 12/03 for possible ureteral stent placement. Agree with antibiotics and following cu lture results. -Zackary Dunn MD. Date of Consultation December 03, 2023 Assessment & Plan (1) Nephrolithiasis: Patient has been admitted on the hospital service. From a urologic perspective we recommend the following: Patient is receiving intravenous fluids which should continue There is concern for underlying urinary tract infection she has been placed on Zosyn which should continue. Propria cultures have been sent and antibiotics be tailored based on these results She has been placed on Flomax for expulsive therapy At the present time the patient is not hypotensive. She also does not exhibit fever, leukocytosis, or tachycardia. Therefore I feel conservative measures should be employed for this evening. Patient will be reevaluated the morning of 12/04/2023 and a determination will be made if patient will require cystoscopic intervention She should be kept n.p.o. after midnight tonight Additional recommendations to be forthcoming based on her clinical course as unfolds History of Present Illness Reason for Consultation: Nephrolithiasis Attending Physician: Scott Quintero MD History of Present Illness This is a 78-year-old female who presented to the emergency department secondary to right sided back pain. Patient says that the pain has been present for approximately 3 to 4 days. She has had occasional chills but has not had any fevers. When she does have the pain it does not radiate but she does have some associated nausea and vomiting. She denies any dysuria or hematuria. To the best of her knowledge she has not ever passed any kidney stones in the past. Since arrival to the emergency department she has had labs and imaging. CT scan abdomen pelvis showed the patient had a right kidney stone at the ureterovesical junction measuring approximately 5 mm. There is associated hydronephrosis. Patient also had a CT scan of the lumbar spine that demonstrated the above-noted kidney stone. Labs include a CBC white blood cell count, hemoglobin, hematocrit, platelet count were normal. Chemistry profile showed sodium and potassium as well as the BUN and creatinine were normal. Urinalysis showed cloudy urine which was negative for nitrites. There was 3+ leukocyte Estrace greater than 50 white blood cells per high-power field. There is no bacteria on the study. At the time of my interview she was resting comfortably in bed and she was no distress Allergies Allergy/AdvReac Type Severity Reaction Status Date / Time No Known Allergies Allergy Unknown Verified 12/03/23 16:50 Home Medications Medication Instructions Recorded Confirmed Type aspirin 81 mg tablet,delayed 81 mg PO QAM 04/30/19 12/03/23 History release atorvastatin 40 mg tablet 40 mg PO QPM 04/30/19 12/03/23 History lisinopril 5 mg tablet 5 mg PO QAM 04/30/19 12/03/23 History oxybutynin chloride 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 04/30/19 12/03/23 History tablet,extended release 24 hr carvedilol 12.5 mg tablet 12.5 mg PO AMHS 12/03/23 12/03/23 History dorzolamide 22.3 mg-timolol 6.8 1 drp OPB BID 12/03/23 12/03/23 History mg/mL eye drops latanoprost 0.005 % eye drops 1 drp OPB HS 12/03/23 12/03/23 History multivitamin 1 tab PO DAILY 12/03/23 12/03/23 History nitroglycerin 0.4 mg sublingual 0.4 mg sublingual UD PRN Chest Pain 12/03/23 12/03/23 History tablet Patient History Medical History No pertinent family history Vertigo Family History Father , Unsure of reason No problems noted. Mother , age 48 from ruptured ventral hernia complications No problems noted. 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[employer]; [employer] Feels Safe at Home: Yes Assistive Devices: None Review of Systems Review of Systems: All systems reviewed & are unremarkable except as noted in HPI & below Physical Exam Constitutional: WD/WN, vitals as above Eyes: no conjunctival abnormality ENMT: Ears: no hearing impairment and no external ear abnormality Mouth: no oropharynx abnormality Neck: trachea midline Respiratory: normal respiratory effort; no respiratory distress and no labored breathing Cardiovascular: Rate/Rhythm: regular rate and regular rhythm Gastrointestinal (Abdomen): Abdomen is soft, nontender to palpation. Skin: no rashes Neurologic: moves all extremities Genitourinary: No CVA tenderness with percussion noted bilaterally Results & Data Vital Signs (Past 12 Hours) Vital Signs Temp Pulse Pulse Pulse Resp BP BP 12/03/23 19:00 36.5 C 73 16 170/84 H 12/03/23 16:27 77 12/03/23 16:04 75 14 179/74 H 12/03/23 16:04 75 12 12/03/23 14:51 78 16 178/92 H 12/03/23 13:48 68 17 12/03/23 12:29 36.5 C 81 18 204/99 H Pulse Ox O2 Del Method 12/03/23 19:00 98 Room Air 12/03/23 16:27 12/03/23 16:04 98 Room Air 12/03/23 16:04 94 Room Air 12/03/23 14:51 97 Room Air 12/03/23 13:48 98 Room Air 12/03/23 12:29 100 Room Air PG Care Time/CCT Total # of Minutes Spent Total Time Spent with Patient: Total time spent is greater than 50% in coordination of care (as documented) at patient's floor/unit and/or counseling patient: Coding Level of Care Code 63541 INT INP/OBS CARE 3/75MIN Diagnoses Nephrolithiasis N20.0
--- NOTE | 2023-12-03 21:26 | Emergency Department Note ---
ED Provider Note History of Present Illness Chief Complaint: Back Injury/Pain Stated Complaint: BACK PAIN, VOMIT Time Seen by Provider: 12/03/23 12:48 Source: patient Mode of arrival: ambulatory Limitations: no limitations This patient is a 78-year-old female who presents to the emergency department for evaluation of low back pain and vomiting over the past 2 days. She reports that she has had intermittent low back pain on the right side. Pain does not radiate anywhere. She reports that at times the pain becomes so severe that she throws up. Nothing really makes the pain better or worse. She has tried OTC medications without relief. Denies urinary symptoms. She denies any injury. She denies history of back problems. Home Medications Medication Instructions Recorded Confirmed Type aspirin 81 mg tablet,delayed 81 mg PO QAM 04/30/19 12/03/23 History release atorvastatin 40 mg tablet 40 mg PO QPM 04/30/19 12/03/23 History lisinopril 5 mg tablet 5 mg PO QAM 04/30/19 12/03/23 History oxybutynin chloride 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 04/30/19 12/03/23 History tablet,extended release 24 hr carvedilol 12.5 mg tablet 12.5 mg PO AMHS 12/03/23 12/03/23 History dorzolamide 22.3 mg-timolol 6.8 1 drp OPB BID 12/03/23 12/03/23 History mg/mL eye drops latanoprost 0.005 % eye drops 1 drp OPB HS 12/03/23 12/03/23 History multivitamin 1 tab PO DAILY 12/03/23 12/03/23 History nitroglycerin 0.4 mg sublingual 0.4 mg sublingual UD PRN Chest Pain 12/03/23 12/03/23 History tablet Allergies Allergy/AdvReac Type Severity Reaction Status Date / Time No Known Allergies Allergy Unknown Verified 12/03/23 16:50 Past Med/Surg History Problem List (Updated 12/03/23 @ 21:26 by Deepika Paula PA-C) Nephrolithiasis Encounter for pre-operative examination Right ureteral stone (Acute) Hydronephrosis, right (Acute) Hydronephrosis Bacteremia Hypomagnesemia (Acute) SHABANA (acute kidney injury) (Acute) Sepsis (Acute) Fever H/O heart artery stent Nausea CAD (coronary artery disease) DVT prophylaxis Urinary incontinence Hyperlipidemia Chest pain (Acute) Precordial chest pain Hypertension (Chronic) Medical History No pertinent family history Vertigo Family History Father , Unsure of reason No problems noted. Mother , age 48 from ruptured ventral hernia complications No problems noted. 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 Feels Safe at Home: Yes Assistive Devices: None Physical Exam Vital Signs Vital Signs - 24 hr 12/03/23 12:29 12/03/23 13:48 12/03/23 14:51 Temperature 36.5 C Temperature Source Temporal Artery Scan Pulse Rate 81 Pulse Rate [Apical] 68 78 Pulse Rhythm Pulse Rhythm [Apical] Pulse Strength [Apical] Respiratory Rate 18 17 16 Respiratory Effort / Characteristics Non-Labored Spontaneous Non-Labored Non-Labored Respiratory Depth Normal Normal Normal Respiratory Pattern Regular Regular Blood Pressure 204/99 H Blood Pressure [Right Arm] 178/92 H Blood Pressure Mean 134 Blood Pressure Mean [Right Arm] 120 Blood Pressure Position Sitting Blood Pressure Position [Right Arm] Pulse Oximetry 100 98 97 Oxygen Delivery Method Room Air Room Air Room Air Sepsis Recent Fever Within 48 Hours No Sepsis New/Unexplained Change in Mental Status N/A Sepsis Action Taken by Nursing No Action Required 12/03/23 16:04 12/03/23 16:04 12/03/23 16:27 Temperature Temperature Source Pulse Rate 75 77 Pulse Rate [Apical] 75 Pulse Rhythm Regular Pulse Rhythm [Apical] Regular Pulse Strength [Apical] Normal Respiratory Rate 12 14 Respiratory Effort / Characteristics Non-Labored Respiratory Depth Normal Respiratory Pattern Regular Blood Pressure Blood Pressure [Right Arm] 179/74 H Blood Pressure Mean Blood Pressure Mean [Right Arm] 109 Blood Pressure Position Blood Pressure Position [Right Arm] Lying Pulse Oximetry 94 98 Oxygen Delivery Method Room Air Room Air Sepsis Recent Fever Within 48 Hours Sepsis New/Unexplained Change in Mental Status Sepsis Action Taken by Nursing VITALS: Vitals are noted on the nurse's note and reviewed by myself. GENERAL: This is a 78-year-old female, in no acute distress, well-developed well-nourished. SKIN: The skin was without rashes. EYES: Pupils equal round and reactive to light and accommodation. MOUTH: Mucous membranes moist. HEART: Regular rate and rhythm without murmurs gallops or rubs. LUNGS: Clear to auscultation bilaterally without wheezes, rales or rhonchi. ABDOMEN: Positive bowel sounds x 4. Soft, nontender to palpation. MUSCULOSKELETAL: No CVA tenderness. No tenderness of the lumbar spinous processes. NEURO: Patient was alert and oriented to person place and time. Course Administered Medications Sodium Chloride (Nss) 1,000 mls @ 125 mls/hr IV .Q8H [facility] Stop: 12/04/23 11:13 Last Admin: 12/03/23 19:51 Dose: 125 mls/hr Documented By: PRETTY Discontinued Medications Promethazine HCl (Phenergan) 12.5 mg in 50.5 mls @ 202 mls/hr IV NOW STA Stop: 12/03/23 15:45 Last Infusion: 12/03/23 16:30 Dose: Infused Documented By: Admin: 12/03/23 16:06 Dose: 202 mls/hr Documented By: RUFINO Piperacillin Sod/Tazobactam Sod (Zosyn) 4.5 gm in 100 mls @ 200 mls/hr IV NOW ONE; Protocol Stop: 12/03/23 17:08 Last Infusion: 12/03/23 17:45 Dose: Infused Documented By: Admin: 12/03/23 16:48 Dose: 200 mls/hr Documented By: RUFINO Ioversol (Optiray 320 100ml) 94 ml IV ONCE ONE Stop: 12/03/23 14:37 Last Admin: 12/03/23 14:36 Dose: 94 ml Documented By: MELISSA Morphine Sulfate (Morphine Sulfate 4 Mg/Ml 1 Ml Carp\Vial) 4 mg IV NOW STA Stop: 12/03/23 13:01 Last Admin: 12/03/23 13:16 Dose: 4 mg Documented By: NAHID Ondansetron HCl (Ondansetron Inj 2 Mg/Ml 2 Ml Vial) 4 mg IV NOW STA Stop: 12/03/23 13:01 Last Admin: 12/03/23 13:16 Dose: 4 mg Documented By: NAHID Medical Decision Making Differential Diagnosis Differential diagnosis includes renal calculus, pyelonephritis, musculoskeletal pain, ruptured AAA, aortic dissection, diverticulitis, perforated viscus, bowel obstruction, biliary pathology, pancreatitis, PE, pneumonia, pneumothorax, trauma, herpes zoster, malignancy, among others. Laboratory Data Attestation: I reviewed the patient's lab results. 12/03/23 13:24 12/03/23 15:10 Lab Results 12/03/23 12/03/23 12/03/23 Range/Units 13:24 14:44 15:10 WBC 10.48 (4.8-10.8) K/ul RBC 4.81 (4.20-5.40) M/uL Hgb 14.3 (12.0-16.0) g/dl Hct 42.4 (37.0-47.0) % MCV 88.1 (80.0-100.0) fL MCH 29.7 (25.0-34.0) pg MCHC 33.7 (32.0-36.0) g/dL RDW Std Deviation 43.3 (36.4-46.3) fL RDW Coeff of Sara 13.3 (11.5-14.5) % Plt Count 151 (130-400) K/uL MPV 10.3 (9.4-12.4) fL Immature Gran % (Auto) 0.3 % Neut % (Auto) 83.1 % Lymph % (Auto) 11.0 % Sharkey % (Auto) 5.1 % Eos % (Auto) 0.2 % Baso % (Auto) 0.3 % Neut # (Auto) 8.72 H (1.40-6.50) K/uL Lymph # (Auto) 1.15 L (1.20-3.40) K/uL Sharkey # (Auto) 0.53 (0.11-0.59) K/uL Eos # (Auto) 0.02 (0.00-0.50) K/uL Baso # (Auto) 0.03 (0.00-0.20) K/uL Immature Gran # (Auto) 0.03 (0.01-0.20) K/uL Sodium 142 (136-145) mmol/L Potassium TNP 3.6 Chloride 110 H (98-107) mmol/L Carbon Dioxide 22 (21-32) mmol/L Anion Gap 10 (3-11) BUN 20 (6-23) mg/dl Creatinine 0.99 (0.6-1.2) mg/dl Est Cr Clr Drug Dosing 39.0 ml/min eGFR 58.00 BUN/Creatinine Ratio 20.2 H (10-20) Glucose 127 H (70-99(Fasting)) mg/dl Calcium 10.3 (8.6-10.3) mg/dl Total Bilirubin 1.4 H (0.2-1.0) mg/dl AST TNP 16 ALT 16 (7-52) U/L Alkaline Phosphatase 118 H (34-104) U/L Total Protein 8.0 (6.0-8.3) gm/dl Albumin 4.7 (3.4-5.0) gm/dl Globulin 3.3 (2.5-4.0) gm/dl Albumin/Globulin Ratio 1.4 (0.9-2) Lipase 11 (11-82) U/L Urine Color Yellow Urine Appearance Cloudy A (Clear) Urine pH 5.0 (4.5-7.5) Ur Specific [place] 1.027 (1.000-1.030) Urine Protein Trace H (Negative) Urine Glucose (UA) Negative (Negative) Urine Ketones Trace H (Negative) Urine Blood 2+ H (Negative) Urine Nitrite Negative (Negative) Urine Bilirubin Negative (Negative) Urine Urobilinogen Negative (Negative) Ur Leukocyte Esterase 3+ H (Negative) Urine WBC (Auto) >50 H (0-5) /hpf Urine RBC (Auto) 11-20 H (0-2) /hpf U Hyaline Cast (Auto) 3-5 H (0-2) /lpf U Epithel Cells (Auto) 6-10 H (0-2) /hpf Urine Bacteria (Auto) None Seen (None Seen) Calcium Oxalate Crystal Present A (None Prsent) Imaging Data Attestation: I personally reviewed and interpreted this imaging study as follows: Radiologist's Impression: Abdomen/Pelvis CT 12/03/23 13:00 CT abd pelvis IV con only, CT lumbar spine w con CLINICAL HISTORY: right flank pain, vomiting TECHNIQUE: Helical axial images of the abdomen and pelvis were obtained and displayed. Automated dose lowering techniques and/or adjustment according to patient size were utilized for this exam. Dedicated images of the lumbar spine were obtained. This exam was performed with intravenous contrast. CT DOSE: 991.95 mGy.cm COMPARISON: Comparison is made to CT abdomen pelvis 12/30/2019 FINDINGS: Lower chest: Cardiomegaly is partially visualized. Liver: Unremarkable. No focal lesions are seen. Gallbladder and biliary tree: No calcified gallstones. Normal caliber wall. No intra- or extrahepatic biliary ductal dilation. Pancreas: Unremarkable, no focal lesions. Spleen: Unremarkable. Adrenals: Unremarkable. Kidneys and ureters: Right obstructive stone is seen with hydronephrosis and hydroureter. Bladder: Unremarkable. Reproductive organs: Unremarkable. Bowel: A hiatal hernia is seen. Diverticulosis is seen without diverticulitis. Lymph nodes Retroperitoneal: Unremarkable. Pelvic: Unremarkable. Mesenteric: Unremarkable. Peritoneum: Normal. Vessels: Atherosclerotic calcifications are seen. Abdominal wall: Unremarkable. Bones: Subacute appearing rib fractures are seen on the right. Degenerative changes are seen in the spine. IMPRESSION: 1. Obstructive right UVJ stone with associated hydronephrosis. 2. Diverticulosis without diverticulitis. 3. Additional findings as above. ACT 112: Negative or not required by law. Electronically signed by: Marcos Jay M.D. 12/03/2023 2:[address] 12/03/23 13:00 CT abd pelvis IV con only, CT lumbar spine w con CLINICAL HISTORY: right flank pain, vomiting TECHNIQUE: Helical axial images of the abdomen and pelvis were obtained and displayed. Automated dose lowering techniques and/or adjustment according to patient size were utilized for this exam. Dedicated images of the lumbar spine were obtained. This exam was performed with intravenous contrast. CT DOSE: 991.95 mGy.cm COMPARISON: Comparison is made to CT abdomen pelvis 12/30/2019 FINDINGS: Lower chest: Cardiomegaly is partially visualized. Liver: Unremarkable. No focal lesions are seen. Gallbladder and biliary tree: No calcified gallstones. Normal caliber wall. No intra- or extrahepatic biliary ductal dilation. Pancreas: Unremarkable, no focal lesions. Spleen: Unremarkable. Adrenals: Unremarkable. Kidneys and ureters: Right obstructive stone is seen with hydronephrosis and hydroureter. Bladder: Unremarkable. Reproductive organs: Unremarkable. Bowel: A hiatal hernia is seen. Diverticulosis is seen without diverticulitis. Lymph nodes Retroperitoneal: Unremarkable. Pelvic: Unremarkable. Mesenteric: Unremarkable. Peritoneum: Normal. Vessels: Atherosclerotic calcifications are seen. Abdominal wall: Unremarkable. Bones: Subacute appearing rib fractures are seen on the right. Degenerative changes are seen in the spine. IMPRESSION: 1. Obstructive right UVJ stone with associated hydronephrosis. 2. Diverticulosis without diverticulitis. 3. Additional findings as above. ACT 112: Negative or not required by law. Electronically signed by: Marcos Jay M.D. 12/03/2023 2:56 PM MDM Narrative This patient is a 78-year-old female who presents to the emergency department for evaluation of back pain and vomiting. Above workup was performed. Labs revealed no leukocytosis or anemia. Creatinine is within normal limits. Urinalysis is suggestive of possible infection. CT of the abdomen/pelvis performed and reviewed by radiology and does show an obstructing right UVJ stone. Given stone and possible UTI, blood culture was drawn. Patient covered with Zosyn based on prior cultures and discussion with the ED pharmacist. She did receive morphine for pain, Zofran and Phenergan for nausea. There is currently a severe shortage of IV fluids. The patient's condition was assessed and did not meet hospital criteria for IV fluid administration at this time. Therefore, IV fluids were not given. Case was discussed with the [facility] Hospitalist service, who agreed to evaluate the patient for further care. Impression Right ureteral stone, Hydronephrosis, right Discharge Plan Visit Data Chief Complaint: Back Injury/Pain Stated Complaint: BACK PAIN, VOMIT ED Provider: [facility] ED Midlevel Provider: Deepika Paula Discharge Problem: Right ureteral stone, Hydronephrosis, right Patient Disposition: Admitted As Inpatient Discharge Instructions Interventions: ED Discharge Assessment Last Done: 12/03/23 18:07
[2023-12-03] MEDS: ACETAMINOPHEN 500 MG TAB PO SCH (21:58)
[2023-12-03] MEDS: LATANOPROST 0.005% OP SOLN 2.5 ML BTL OPB SCH (21:59)
[2023-12-03] MEDS: DORZOLAMIDE/TIMOLOL 22.3/6.8MG/ML 10 ML BTL OPB SCH (21:59)
[2023-12-03] MEDS: carvediloL 12.5 MG TAB PO SCH (21:59)
[2023-12-03] MEDS: TAMSULOSIN HCL 0.4 MG CAP PO SCH (21:59)
[2023-12-03] MEDS: PIPERACILLIN/TAZOBACTAM 4.5 GM/100 ML BAG IV SCH (22:00)
[2023-12-04] MEDS: MULTIVITAMIN TAB PO SCH (08:54)
[2023-12-04] MEDS: lisinopril 5 MG TAB PO SCH (08:54)
--- NOTE | 2023-12-04 09:47 | Urology Progress Note ---
Date of Service December 04, 2023 Assessment & Plan (1) Right ureteral stone: (2) Hydronephrosis, right: Plan: Follow-up of 5 mm right UVJ stone Patient is afebrile with stable vitals No new labs this morning at time of visit Urine culture prelim with probable Enterococcus, blood cultures pending Continue with broad-spectrum antibiotics and narrow per sensitivity data when available Discussed right ureteral stent placement today in the context of obstructing stone and concern for UTI She is agreeable to proceed Proceed to OR today for cystoscopy and right ureteral stent placement Keep NPO for procedure Continue with scheduled antibiotics Continue supportive care and medical management per medicine service Attending note: Patient independently assessed, examined, interviewed, and evaluated. Agree with note as above. Patient's vitals and labs were all reviewed. Pertinent values in the HPI and plan section. Imaging was reviewed interpreted by myself. Agree with read. Vitals were reviewed. Discussed findings extensively with patient and family. Reviewed with nurse practitioner as well as consulting physicians/team. Patient's complicated medical and surgical history was reviewed and summarized above. Patient's surgical, medical, social, and family history were all reviewed with pertinent values as above. Discussed patient's current diagnosis as well as concerns and issues. Reviewed different options moving forward. Discussed potential risks and benefits as well as possible options and concerns. Reviewed potential surgical options and interventions. Discussed potential issues and concerns related to intervention. Risk and benefits were discussed extensively with patient and any available family. Discussed potential risks related to anesthesia. Discussed risks of bleeding infection and injury. Patient with obstructing stone and concern for possible infection. Will plan to move forward with cystoscopy and stent placement. Will likely need stone treatment after adequate treatment with antibiotics. Risks and benefits discussed at length for procedure. These include bleeding, infection, injury to surrounding tissues or organs, and risks associated with anesthesia. Patient states understanding and agrees to proceed. Will sign consent and schedule. Plan for right retrograde pyelogram and stent placement Admission and Anticipated Discharge Date Admission Date: December 03, 2023 Subjective Patient seen and examined at bedside this morning. She is awake and sitting up at the edge of the bed. She is voiding spontaneously without difficulty. No dysuria or hematuria. Denies stone passage. No flank pain at present. Denies nausea, vomiting, fever or chills. Review of Systems Constitutional: as per Subjective / HPI Genitourinary: as per Subjective / HPI Physical Exam Constitutional: well developed and well nourished; no acute distress Respiratory: normal respiratory effort; no respiratory distress and no labored breathing Gastrointestinal (Abdomen): Inspection/Auscultation: abdomen normal to inspection Musculoskeletal: Head/Neck/Chest: normocephalic Neurologic: moves all extremities and awake Psychiatric: Orientation: alert and oriented x 3 Results & Data Vital Signs (Past 12 Hours) Vital Signs Temp Pulse Pulse Resp BP Pulse Ox O2 Del Method 12/04/23 07:49 36.4 C L 64 16 133/73 98 Room Air 12/03/23 21:56 66 130/78 94 Room Air PG Care Time/CCT Total # of Minutes Spent Total Time Spent with Patient: Total time spent is greater than 50% in coordination of care (as documented) at patient's floor/unit and/or counseling patient: Coding Level of Care Code 84131 SUB INP/OBS CARE 2/35MIN Diagnoses Right ureteral stone N20.1 Hydronephrosis, right N13.30
[2023-12-04] MEDS ORDERED: fentaNYL citrate PF 100 MCG/2 ML VIAL ONE (11:08)
[2023-12-04] MEDS ORDERED: MIDAZOLAM HCL 1 MG/ML 2ML VIAL ONE (11:08)
[2023-12-04] MEDS ORDERED: PROPOFOL IV EMULSION 10 MG/ML 20 ML VIAL IV ONE ×2 (11:08→12:52)
[2023-12-04] MEDS ORDERED: fentaNYL citrate PF 100 MCG/2 ML VIAL IV PRN (11:36)
[2023-12-04] MEDS ORDERED: ATROPINE SULFATE 0.1 MG/ML 10ML SYR IV PRN (11:36)
[2023-12-04] MEDS ORDERED: ONDANSETRON INJ 2 MG/ML 2 ML VIAL IV PRN (11:36)
[2023-12-04] MEDS ORDERED: ePHEDrine sulfate 50 MG/ML AMP IV PRN (11:36)
--- NOTE | 2023-12-04 11:37 | Anesthesiology Consultation ---
Date of Service December 04, 2023 Assessment & Plan Chart Review Chart Review: Acceptable Risk for Surgery and Patient NOT seen in Pre Admission Testing Consults Requested none Proposed Anesthesia Risk / Benefits Reviewed With: PT / POA / Parent / Guardian, Accepts Plan and Informed Consent Obtained History Surgery Operation Date: 12/04/23 08:20 Proposed Procedures p Cystoscopy, Right Stent Placement - Ubaldo Wetzel, DO Height/Weight Height: 5 ft Weight: 67 kg Allergies Allergy/AdvReac Type Severity Reaction Status Date / Time No Known Allergies Allergy Unknown Verified 12/04/23 11:27 Medications Home Medications Medication Instructions Recorded Confirmed Last Taken aspirin 81 mg tablet,delayed 81 mg PO QAM 04/30/19 12/03/23 04/30/19 release atorvastatin 40 mg tablet 40 mg PO QPM 04/30/19 12/03/23 04/29/19 lisinopril 5 mg tablet 5 mg PO QAM 04/30/19 12/03/23 04/30/19 oxybutynin chloride 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 04/30/19 12/03/23 04/30/19 tablet,extended release 24 hr carvedilol 12.5 mg tablet 12.5 mg PO AMHS 12/03/23 12/03/23 Unknown dorzolamide 22.3 mg-timolol 6.8 1 drp OPB BID 12/03/23 12/03/23 Unknown mg/mL eye drops latanoprost 0.005 % eye drops 1 drp OPB HS 12/03/23 12/03/23 Unknown multivitamin 1 tab PO DAILY 12/03/23 12/03/23 Unknown nitroglycerin 0.4 mg sublingual 0.4 mg sublingual UD PRN Chest Pain 12/03/23 12/03/23 Unknown tablet Active Medications Generic Name Dose Route Start Last Admin Trade Name Freq PRN Reason Stop Dose Admin Acetaminophen 1,000 mg 12/03/23 21:00 12/04/23 08:55 Acetaminophen 500 Mg Tab PO 01/02/24 20:59 1,000 mg TID DESTINY Administration Carvedilol 12.5 mg 12/03/23 21:00 12/04/23 08:54 Carvedilol 12.5 Mg Tab PO 01/02/24 20:59 12.5 mg AMHS DESTINY Administration Dorzolamide/Timolol 1 drops 12/03/23 21:00 12/04/23 08:55 Dorzolamide/Timolol 22.3/6.8mg/Ml 10 Ml Btl OPB 01/02/24 20:59 1 drops BID DESTINY Administration Piperacillin Sod/Tazobactam Sod 4.5 gm in 100 mls @ 25 mls/hr 12/03/23 21:00 12/04/23 08:32 Zosyn IV 12/13/23 20:59 Infused Q8H DESTINY Infusion Protocol Latanoprost 1 drops 12/03/23 21:00 12/03/23 21:59 Latanoprost 0.005% Op Soln 2.5 Ml Btl OPB 01/02/24 20:59 1 drops HS DESTINY Administration Lisinopril 5 mg 12/04/23 09:00 12/04/23 08:54 Lisinopril 5 Mg Tab PO 01/03/24 08:59 5 mg QAM DESTINY Administration Multivitamins 1 tab 12/04/23 09:00 12/04/23 08:54 Multivitamin Tab PO 01/03/24 08:59 1 tab DAILY DESTINY Administration Tamsulosin HCl 0.4 mg 12/03/23 21:00 12/03/23 21:59 Tamsulosin Hcl 0.4 Mg Cap PO 01/02/24 20:59 0.4 mg HS DESTINY Administration NPO Date Last Intake of Fluids: 12/03/23 Time Last Intake of Fluids: 18:00 Date Last Intake of Solids: 12/03/23 Time Last Intake of Solids: 18:00 Past Medical History Medical History No pertinent family history Vertigo Exercise / Class Metabolic Activity II 4-5 Yardwork/Stairs/Walk up hill Past Family History Family History Father , Unsure of reason No problems noted. Mother , age 48 from ruptured ventral hernia complications No problems noted. Brother Cancer Past Anesthesia History No Hx of Anesthesia Complications and No Family Hx of Anesthesia Complications History of PONV No Hx of PONV and No Hx of Motion Sickness Social History Smoking Status: Never smoker Hx Alcohol Use: No Hx Substance Use: No substance use type: does not use Physical Exam Vital Signs Last Vital Signs Temp 36.6 C 12/04/23 11:27 Pulse 67 12/04/23 11:27 Resp 16 12/04/23 11:27 BP 165/74 H 12/04/23 11:27 Pulse Ox 100 12/04/23 11:27 O2 Del Method Room Air 12/04/23 11:27 ENMT Mouth: + dentures (top) Thyromental Distance: > or= 3.5 Finger Breadths Mallampati Class: II Neck normal visual inspection Respiratory normal respiratory effort Auscultation: lungs clear to auscultation bilaterally Cardiovascular Rate/Rhythm: regular rate and regular rhythm Psychiatric Orientation: alert Testing Laboratory Results 12/03/23 13:24 12/03/23 15:10 Urine Color Yellow 12/03/23 14:44 Urine Appearance Cloudy (Clear) A 12/03/23 14:44 Urine pH 5.0 (4.5-7.5) 12/03/23 14:44 Ur Specific [place] 1.027 (1.000-1.030) 12/03/23 14:44 Urine Protein Trace (Negative) H 12/03/23 14:44 Urine Glucose (UA) Negative (Negative) 12/03/23 14:44 Urine Ketones Trace (Negative) H 12/03/23 14:44 Urine Nitrite Negative (Negative) 12/03/23 14:44 Ur Leukocyte Esterase 3+ (Negative) H 12/03/23 14:44 Urine WBC (Auto) >50 /hpf (0-5) H 12/03/23 14:44 Urine RBC (Auto) 11-20 /hpf (0-2) H 12/03/23 14:44 U Hyaline Cast (Auto) 3-5 /lpf (0-2) H 12/03/23 14:44 U Epithel Cells (Auto) 6-10 /hpf (0-2) H 12/03/23 14:44 Urine Bacteria (Auto) None Seen (None Seen) 12/03/23 14:44 12/03/23 14:44 Urine Culture - Preliminary Urine,Clean Catch Probable Enterococcus
--- NOTE | 2023-12-04 13:14 | Operative Report ---
PG Post Operative Report Pre & Post Diagnosis Right ureteral stone Same Operation Date: 12/04/23 08:20 <No data on this case meets the specified criteria> I identified the patient and participated in the time-out.: Yes Procedure Cystoscopy with evacuation of debris. Right retrograde pyelogram, right aspiration, and right stent placement Operation Date: 12/04/23 08:20 <No data on this case meets the specified criteria> Surgeon Ubaldo Wetzel, II, DO Legal Analyst None Estimated Blood Loss 1 Findings Consistent with Post-Op Diagnosis Grade 3 cystocele with large debris in the base of the bladder. Right stent placed in good position. Significant hydronephrosis on the right with urine aspirated and sent for analysis Specimens Aspirated urine for microanalysis Drains 6 Fr x 24 cm Right Anesthesia Type MAC Complications none Disposition Disposition: Recovery Room Indications Patient with obstruction. Risks and benefits discussed at length. Description of Procedure Patient was consented and brought back to the operating room. Patient was placed under anesthesia in the supine position and moved to the dorsal lithotomy position. Patient was prepped and draped in the regular sterile fashion. A time out was completed. A 30degree Cystoscope was placed into the bladder and the entire bladder was examined. The UO's were identified. A large amount of debris was noted in the base of the bladder. It did appear to be possibly early stone versus debris in the base. This was irrigated clear. The patient had a significant cystocele which appeared to be trapping the debris and urine. The stone was found to be impacted in the right UVJ. The UO was cannulized with a catheter and advanced to the renal pelvis. Urine was aspirated. This was sent for culture. A retrograde pyelogram was completed. A wire was then placed. With the wire in place, a 6 Fr Double J stent was placed. It was confirmed with fluoroscopy. With the stent in place, the bladder was emptied. The scope was removed. The patient was cleaned, aroused from anesthesia, and transferred to the pacu in stable condition having tolerated the procedure well with no complications. I was present and participated in all aspects of the procedure. The patient will be monitored in the PACU until transferred. Will plan to monitor patient with plans for outpatient follow-up to set up likely stone procedure on the right I attest to the content of the Intraoperative Record and any orders documented therein. Any exceptions are noted below.
[2023-12-04] MEDS: DIATRIZOATE MEGLUMINE 30% 100ML VIAL INSTIL ONE (13:26)
--- NOTE | 2023-12-04 13:45 | Fluoroscopy Report ---
FL retrograde includes kub CLINICAL HISTORY: RIGHT CYSTO COMPARISON STUDY: CT of the abdomen and pelvis December 03, 2023. FLUOROSCOPY TIME: 27 seconds. Ka, r: 6.50 mGy FLUOROSCOPIC IMAGES: 3 FINDINGS: Fluoroscopy was provided during right retrograde pyelogram with ureteral stent insertion. T he stent is well-positioned. IMPRESSION: Fluoroscopy provided during right retrograde pyelogram with right ureteral stent inserti on. ACT 112: Negative or not required by law. Electronically signed by: Tja Salcedo M.D. 12/04/2023 1:44 PM
--- NOTE | 2023-12-04 13:57 | Anesthesiology Progress Note ---
Date of Service December 04, 2023 Anesthesia Post Procedure Vital Signs Vital Signs: Temp Pulse Pulse Pulse Pulse Resp BP 12/04/23 13:50 36.2 C L 55 L 12 122/55 L 12/04/23 13:40 53 L 12 115/54 L 12/04/23 13:30 53 L 12 113/58 L 12/04/23 13:21 36.0 C L 62 14 119/58 L 12/04/23 11:27 36.6 C 67 16 165/74 H 12/04/23 07:49 36.4 C L 64 16 133/73 12/04/23 07:10 12/03/23 21:56 66 130/78 12/03/23 19:00 36.6 C 70 16 170/84 H 12/03/23 19:00 36.5 C 73 16 170/84 H 12/03/23 16:27 77 12/03/23 16:04 75 14 179/74 H 12/03/23 16:04 75 12 12/03/23 14:51 78 16 178/92 H Pulse Ox O2 Del Method O2 Flow Rate 12/04/23 13:50 97 Room Air 12/04/23 13:40 98 Room Air 12/04/23 13:30 100 Oxymask 9 12/04/23 13:21 99 Oxymask 9 12/04/23 11:27 100 Room Air 12/04/23 07:49 98 Room Air 12/04/23 07:10 Room Air 12/03/23 21:56 94 Room Air 12/03/23 19:00 95 Room Air 12/03/23 19:00 98 Room Air 12/03/23 16:27 12/03/23 16:04 98 Room Air 12/03/23 16:04 94 Room Air 12/03/23 14:51 97 Room Air Transfer of Care Handoff Completed per policy Notes Mental Status: alert / awake / arousable Patient Amnestic to Procedure: Yes Nausea / Vomiting: adequately controlled Pain: adequately controlled Airway Patency, RR, SpO2: stable & adequate BP & HR: stable & adequate Hydration State: stable & adequate Anesthetic Complications: no major complications apparent
--- NOTE | 2023-12-04 16:10 | Hospitalist Progress Note ---
<Statement entered by Kellie Santana MD - 12/04/23 17:40> I have reviewed vital signs, chart notes, labs and imaging. I have also discussed the management of the patient with the HUEY and I agree with the exam findings documented in the history and physical examination and the documented assessment and plan unless otherwise stated below. Date of Service December 04, 2023 Assessment & Plan (1) Nephrolithiasis: Plan: Patient with right UVJ stone approximately 5 mm. Continue flomax Urology consulted - s/p stent placement 12/[address] Wetzel Started on Zosyn, switched to Amoxicillin per discussion with pharmacy (& their discussion with ID) and national fluid shortage Blood culture: pending Urine culture: probable enterococcus CMP with slight elevation to T.bili and alk phos - recheck in AM (2) CAD (coronary artery disease): Plan: Continue carvedilol and lisinopril. resume statin Resume ASA in AM Plan Dispo: continued inpatient stay, monitoring cultures, antcipate discharge tomorrow DVT proh: encourage ambulation and SCDs Admission and Anticipated Discharge Date Admission Date: December 03, 2023 Subjective Patient seen this morning prior to the OR - denies any back pain or pain with urination. does not feel like she has passed a stone ambulating without issue no fevers or chills Review of Systems Review of Systems: All systems reviewed & are unremarkable except as noted in Subjective Physical Exam Physical Exam: General: NAD, VS as above Resp: normal respiratory effort, lungs clear to auscultation CV: RRR, no murmur, Abd: soft, non tender, no hepatosplenomegaly Back: no CVA Tenderness Extremities: Moves all extremities, no edema Neuro: A&O x3, Skin: intact, no lesions noted Results & Data Results & Data Vital Signs (Past 12 Hours) Vital Signs Temp Pulse Pulse Resp BP Pulse Ox O2 Del Method 12/04/23 15:05 97.3 F L 53 L 16 148/74 H 99 Room Air 12/04/23 14:35 97.3 F L 58 L 14 143/71 H 100 Room Air 12/04/23 14:05 97.5 F L 54 L 14 120/60 100 Room Air 12/04/23 13:50 97.2 F L 55 L 12 122/55 L 97 Room Air 12/04/23 13:40 53 L 12 115/54 L 98 Room Air 12/04/23 13:30 53 L 12 113/58 L 100 Oxymask 12/04/23 13:21 96.8 F L 62 14 119/58 L 99 Oxymask 12/04/23 11:27 97.9 F 67 16 165/74 H 100 Room Air 12/04/23 07:49 97.5 F L 64 16 133/73 98 Room Air 12/04/23 07:10 Room Air O2 Flow Rate 12/04/23 15:05 12/04/23 14:35 12/04/23 14:05 12/04/23 13:50 12/04/23 13:40 12/04/23 13:30 9 12/04/23 13:21 9 12/04/23 11:27 12/04/23 07:49 12/04/23 07:10 Laboratory Results CBC and chemistry reviewed PG Care Time/CCT Total # of Minutes Spent Total Time Spent with Patient: Total time spent is greater than 50% in coordination of care (as documented) at patient's floor/unit and/or counseling patient: Coding Level of Care Code 81288 SUB INP/OBS CARE 350MIN Diagnoses Nephrolithiasis N20.0 CAD (coronary artery disease) I25.10
[2023-12-04] MEDS: AMOXICILLIN 875 MG TAB PO SCH (21:47)
[2023-12-04] MEDS: ATORVASTATIN 40 MG TAB PO SCH (21:48)
[2023-12-05] MEDS ORDERED: ACETAMINOPHEN 500 MG TAB PO PRN (01:49)
[2023-12-05 07:52] VITALS: BP 144/73; RESP 16; TEMP 98.2; O2SAT 95
[2023-12-05 07:59] LABS: Hematocrit (blood only) 36.3 % (37.0-47.0); Mean Corpuscular Hemoglobin 29.9 pg (25.0-34.0); Mean Corpuscular Hgb Conc 33.1 g/dL (32.0-36.0); Mean Corpuscular Volume 90.3 fL (80.0-100.0); Mean Platelet Volume 10.3 fL (9.4-12.4); Platelet Count 129 K/uL (130-400); RDW Coefficient of Variation 13.4 % (11.5-14.5); Red Blood Count 4.02 M/uL (4.20-5.40); White Blood Count 7.03 K/ul (4.8-10.8)
[2023-12-05] MEDS: ASPIRIN 81 MG ECTAB PO SCH (08:06)
[2023-12-05 08:19] LABS: Albumin Globulin Ratio 1.5 (0.9-2); Albumin Level 3.6 gm/dl (3.4-5.0); Bilirubin,Total 1.2 mg/dl (0.2-1.0); Calcium 9.1 mg/dl (8.6-10.3); Creatinine Clr Calc Pharmacy 41.4 ml/min; Globulin 2.4 gm/dl (2.5-4.0); Potassium 4.1 mmol/L (3.5-5.1)
--- NOTE | 2023-12-05 10:38 | Urology Progress Note ---
Date of Service December 05, 2023 Assessment & Plan (1) Right ureteral stone: (2) Hydronephrosis, right: Plan: - Pt POD#1 s/p cystoscopy and right ureteral stent placement - Doing well, progressing as expected - Afebrile, lab work reviewed - creatinine 0.94, WBC 7.03 - Urine culture prelim w/ Enterococcus, pansensitive - Blood cultures prelim no growth x 24 hours - Tolerating right ureteral stent with minimal bother - Okay to d/c from perspective when medically stable - Recommend d/c with course of appropriate PO antibiotics per culture, Tamsulosin, prn Pyridium and prn pain medication for stent management - Expected clinical course reviewed, all questions answered - Will arrange outpatient follow-up with our service Admission and Anticipated Discharge Date Admission Date: December 03, 2023 Subjective Patient seen and examined at bedside this morning. She is awake and sitting up at the side of the bed. Denies flank pain. Voiding without difficulty. Denies nausea, vomiting, fever or chills. Review of Systems Constitutional: as per Subjective / HPI Genitourinary: as per Subjective / HPI Physical Exam Constitutional: well developed and well nourished; no acute distress Respiratory: normal respiratory effort; no respiratory distress and no labored breathing Gastrointestinal (Abdomen): Inspection/Auscultation: abdomen normal to inspection Musculoskeletal: Head/Neck/Chest: normocephalic Neurologic: moves all extremities and awake Psychiatric: Orientation: alert and oriented x 3 Results & Data Vital Signs (Past 12 Hours) Vital Signs Temp Pulse Resp BP Pulse Ox O2 Del Method 12/05/23 07:51 36.8 C 86 16 144/73 H 95 Room Air 12/05/23 07:30 Room Air 12/05/23 04:15 36.7 C 81 15 160/75 H 96 Room Air 12/05/23 00:17 36.5 C 81 16 147/78 H 95 Room Air PG Care Time/CCT Total # of Minutes Spent Total Time Spent with Patient: Total time spent is greater than 50% in coordination of care (as documented) at patient's floor/unit and/or counseling patient: Coding Level of Care Code 46764 SUB INP/OBS CARE 1/25MIN Diagnoses Right ureteral stone N20.1 Hydronephrosis, right N13.30
--- NOTE | 2023-12-05 11:11 | Discharge Summary ---
Discharge Summary Date of Service December 05, 2023 Principal Dx & Hospital Course #1 = Principal Diagnosis (1) Nephrolithiasis: Patient with right UVJ stone approximately 5 mm. Urology consulted - s/p stent placement 12/[address] Wetzel - stable for d/c, outpatient stent removal - continue abx, flomax and prn pyridium Blood culture: no growth 24 hours Urine culture: enterococcus CMP with slight elevation to T.bili and alk phos - improving on recheck. Low blood sugar on labs AM 12/04 - pt may have not eaten dinner, but was asymptomatic. Encouraged snacks at home if symptomatic and discuss with PCP if occuring frequently Stable for discharge to home today (2) CAD (coronary artery disease): Continue carvedilol and lisinopril. resume statin Resume ASA in AM Plan Dispo: discharge to home today Family updated at bedside Notes For Next Care Provider stent placed - outpatient removal next week hypoglycemic on AM labs - asymptomatic, family reports not a good eater Medication Changes From Visit amoxicillin x 5 days flomax while stent in place oxybutyin held with stent in place Admission HPI Per Admitting Provider pt presented with right renal colic, has right UVJ stone, associated nausea , ls CT without spinal issues to cause pain. did have sepsis in 2019 from enterococcal uti treated with ampicillin pain and nausea are controlled after morphine and zofran given zosyn Discharge Exam General: NAD, VS as above Resp: normal respiratory effort, lungs clear to auscultation CV: RRR, no murmur, Abd: soft, non tender, no hepatosplenomegaly Back: no CVA Tenderness Extremities: Moves all extremities, no edema Neuro: A&O x3, Skin: intact, no lesions noted Discharge Plan Discharge Items Patient Disposition: Home - Self-Care Reason For Visit: RIGHT RENAL COLIC Discharge Diagnosis: Right hydronephrosis Activity: Resume your previous activity Weightbearing: Full weightbearing Non-emergency contact: Primary Care Provider and Urologist Call non-emergency contact if: you have any medication questions, your symptoms worsen and your temperature is above 101 Follow-up/Referrals: Frankie Batista PA-C [Physician Electromechanical Technologist] - 12/12/23 11:00 am Tanisha Burnett D.O. [Primary Care Provider] - 12/12/23 2:20 pm () Diet: Heart Healthy Add Attending Provider Instructions: Mrs. Roy, You were hospitalized after having right sided back pain which turned out to be a kidney stone with hydronephrosis (fluid backed up in the kidney) - because of this you had a stent placed with Dr. Wetzel and were started on antibiotics for infection. You will be discharged with antibiotics, flomax and Pyridium. Recommendations: * Continue Amoxicillin (this is your antibiotic) for 5 more days * Flomax daily while stent in place * Pyridium as needed for bladder pain or pain with urination - this may make your urine orange. * No changes to your home medications * Follow with urology is already scheduled * You had a low blood sugar this morning - thankfully you were asymptomatic, if you get lightheaded or dizzy at home please have a snack. Discuss with your PCP if this is happening often You have blood cultures pending at the time of discharge, they are negative at 24 hours but take 5 days to get final results. If they turn positive you will be notified, you can also check in with your PCP or the [facility] portal. However, given your symptoms I do not expect they will be positive. Activity: You can do normal everyday activities as your body allows. Take rest breaks if you feel tired. Do not overexert. Stop activity if you have pain, shortness of breath or feel dizzy. Follow-up appointments: Make an appointment with your primary care physician within one week of discharge. A copy of this summary will be sent to them. Every time you see your primary care physician, or any other doctor, bring your medication list, and a list of questions. CONTACT YOUR PRIMARY CARE PROVIDER if you experience any of the following: Shortness of breath or difficulty breathing Fevers or chills Feeling tired with normal activity or experiencing dizziness or fainting Difficulty following your treatment plan, or difficulty taking medications CALL 911 OR GO TO THE EMERGENCY DEPARTMENT if you experience any of the following: Severe abdominal pain or nausea/vomiting Severe chest pain, or chest pain that radiates (moves) to your jaw or arm Sudden, severe shortness of breath or difficulty breathing Thank you for allowing us to participate in your care. 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 Please call our office at [phone] with any questions, concerns or need to reschedule appointments for any reason. We are happy to assist you. While you have a ureteral stent in place: Some discomfort is normal. Certain movements may trigger pain or a feeling that you need to urinate. You may also feel mild soreness or pressure before or during urination. These symptoms should go away a few days after the stent is removed. Your urine may be slightly pink or red. This is due to bleeding caused by minor irritation from the stent. This may happen on and off while you have the stent, it is not harmful and is to be expected. Medication to help minimize discomfort or bladder spasms, or to prevent infection may be prescribed. Take this as directed. Drink plenty of fluids to help flush out your urinary tract. If you go home with a catheter, wash with soapy water and a fresh washcloth twice daily. We recommend mild bar soap such as Dial or Dove. 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, Smoking Cessation Medications and DC Order Prescriptions: New amoxicillin 875 mg Tablet 875 mg PO BID 5 Days Qty: 10 0RF tamsulosin 0.4 mg Capsule 0.4 mg PO HS 14 Days Qty: 14 0RF phenazopyridine [Pyridium] 100 mg tablet 100 mg PO TID PRN (Reason: pain) Qty: 6 0RF Continued atorvastatin 40 mg tablet 40 mg PO QPM lisinopril 5 mg tablet 5 mg PO QAM aspirin 81 mg Tablet,Delayed Release (Dr/Ec) 81 mg PO QAM latanoprost 0.005 % drops 1 drp OPB HS carvedilol 12.5 mg tablet 12.5 mg PO AMHS multivitamin Tablet 1 tab PO DAILY dorzolamide-timolol 22.3-6.8 mg/mL drops 1 drp OPB BID nitroglycerin 0.4 mg tablet, sublingual 0.4 mg sublingual UD PRN (Reason: Chest Pain) Rx Instructions: place 1 tablet under tongue every 5 minutes up to 3 doses as needed for chest pain Held oxybutynin chloride 5 mg tablet extended release 24hr 5 mg PO BID Hold Instructions: Resume on 12/14/23. hold with stent in place Discharge Orders: Discharge Order (Routine); Ordered 12/05/23 Ordered By: Emma Kay/Other Patient Handouts: Having a Ureteral Stent Admission Data Admit Date/Time: 12/03/23 17:23 Attending Provider: Scott Quintero Admit Provider: Scott Quintero Primary Care Provider: Tanisha Burnett Other Providers: Zackary Dunn Hospital Stay Data Consultations 12/03/23 19:14 Consult Urology Routine Procedures Performed Operation Date: 12/04/23 08:20 Actual Procedures p Cystoscopy, Retrograde, Right Stent Placement(Right) - Ubaldo Wetzel, Diagnostic Imagining Performed Abdomen/Pelvis CT 12/03/23 13:00 CT abd pelvis IV con only, CT lumbar spine w con CLINICAL HISTORY: right flank pain, vomiting TECHNIQUE: Helical axial images of the abdomen and pelvis were obtained and displayed. Automated dose lowering techniques and/or adjustment according to patient size were utilized for this exam. Dedicated images of the lumbar spine were obtained. This exam was performed with intravenous contrast. CT DOSE: 991.95 mGy.cm COMPARISON: Comparison is made to CT abdomen pelvis 12/30/2019 FINDINGS: Lower chest: Cardiomegaly is partially visualized. Liver: Unremarkable. No focal lesions are seen. Gallbladder and biliary tree: No calcified gallstones. Normal caliber wall. No intra- or extrahepatic biliary ductal dilation. Pancreas: Unremarkable, no focal lesions. Spleen: Unremarkable. Adrenals: Unremarkable. Kidneys and ureters: Right obstructive stone is seen with hydronephrosis and hydroureter. Bladder: Unremarkable. Reproductive organs: Unremarkable. Bowel: A hiatal hernia is seen. Diverticulosis is seen without diverticulitis. Lymph nodes Retroperitoneal: Unremarkable. Pelvic: Unremarkable. Mesenteric: Unremarkable. Peritoneum: Normal. Vessels: Atherosclerotic calcifications are seen. Abdominal wall: Unremarkable. Bones: Subacute appearing rib fractures are seen on the right. Degenerative changes are seen in the spine. IMPRESSION: 1. Obstructive right UVJ stone with associated hydronephrosis. 2. Diverticulosis without diverticulitis. 3. Additional findings as above. ACT 112: Negative or not required by law. Electronically signed by: Marcos Jay M.D. 12/03/2023 2:[address] 12/03/23 13:00 CT abd pelvis IV con only, CT lumbar spine w con CLINICAL HISTORY: right flank pain, vomiting TECHNIQUE: Helical axial images of the abdomen and pelvis were obtained and displayed. Automated dose lowering techniques and/or adjustment according to patient size were utilized for this exam. Dedicated images of the lumbar spine were obtained. This exam was performed with intravenous contrast. CT DOSE: 991.95 mGy.cm COMPARISON: Comparison is made to CT abdomen pelvis 12/30/2019 FINDINGS: Lower chest: Cardiomegaly is partially visualized. Liver: Unremarkable. No focal lesions are seen. Gallbladder and biliary tree: No calcified gallstones. Normal caliber wall. No intra- or extrahepatic biliary ductal dilation. Pancreas: Unremarkable, no focal lesions. Spleen: Unremarkable. Adrenals: Unremarkable. Kidneys and ureters: Right obstructive stone is seen with hydronephrosis and hydroureter. Bladder: Unremarkable. Reproductive organs: Unremarkable. Bowel: A hiatal hernia is seen. Diverticulosis is seen without diverticulitis. Lymph nodes Retroperitoneal: Unremarkable. Pelvic: Unremarkable. Mesenteric: Unremarkable. Peritoneum: Normal. Vessels: Atherosclerotic calcifications are seen. Abdominal wall: Unremarkable. Bones: Subacute appearing rib fractures are seen on the right. Degenerative changes are seen in the spine. IMPRESSION: 1. Obstructive right UVJ stone with associated hydronephrosis. 2. Diverticulosis without diverticulitis. 3. Additional findings as above. ACT 112: Negative or not required by law. Electronically signed by: Marcos Jay M.D. 12/03/2023 2:56 PM Retrograde Pyelogram 12/04/23 12:45 FL retrograde includes kub CLINICAL HISTORY: RIGHT CYSTO COMPARISON STUDY: CT of the abdomen and pelvis December 03, 2023. FLUOROSCOPY TIME: 27 seconds. Ka, r: 6.50 mGy FLUOROSCOPIC IMAGES: 3 FINDINGS: Fluoroscopy was provided during right retrograde pyelogram with ureteral stent insertion. The stent is well-positioned. IMPRESSION: Fluoroscopy provided during right retrograde pyelogram with right ureteral stent insertion. ACT 112: Negative or not required by law. Electronically signed by: Taj Salcedo M.D. 12/04/2023 1:44 PM Pending Results Patient Have Any Pending Studies at Discharge: Yes (blood cultures ) Discharge Instructions Given to Patient (Per Discharging Provider) Mrs. Roy, Martínez were hospitalized after having right sided back pain which turned out to be a kidney stone with hydronephrosis (fluid backed up in the kidney) - because of this you had a stent placed with Dr. Wetzel and were started on antibiotics for infection. You will be discharged with antibiotics, flomax and Pyridium. Recommendations: * Continue Amoxicillin (this is your antibiotic) for 5 more days * Flomax daily while stent in place * Pyridium as needed for bladder pain or pain with urination - this may make your urine orange. * No changes to your home medications * Follow with urology is already scheduled * You had a low blood sugar this morning - thankfully you were asymptomatic, if you get lightheaded or dizzy at home please have a snack. Discuss with your PCP if this is happening often You have blood cultures pending at the time of discharge, they are negative at 24 hours but take 5 days to get final results. If they turn positive you will be notified, you can also check in with your PCP or the [facility] portal. However, given your symptoms I do not expect they will be positive. Activity: You can do normal everyday activities as your body allows. Take rest breaks if you feel tired. Do not overexert. Stop activity if you have pain, shortness of breath or feel dizzy. Follow-up appointments: Make an appointment with your primary care physician within one week of discharge. A copy of this summary will be sent to them. Every time you see your primary care physician, or any other doctor, bring your medication list, and a list of questions. CONTACT YOUR PRIMARY CARE PROVIDER if you experience any of the following: Shortness of breath or difficulty breathing Fevers or chills Feeling tired with normal activity or experiencing dizziness or fainting Difficulty following your treatment plan, or difficulty taking medications CALL 911 OR GO TO THE EMERGENCY DEPARTMENT if you experience any of the following: Severe abdominal pain or nausea/vomiting Severe chest pain, or chest pain that radiates (moves) to your jaw or arm Sudden, severe shortness of breath or difficulty breathing Thank you for allowing us to participate in your care. Total Time Total Time Spent Total Time Spent (In Minutes): Time spent day of discharge 33 minutes including direct patient care, medication reconciliation, documentation, review of labs and images, and coordination of care. Coding Level of Care Code 84307 INP/OBS DISCH >30 MIN Diagnoses Nephrolithiasis N20.0 CAD (coronary artery disease) I25.10
[2023-12-05 14:45] VITALS: PULSE 58
== END 2023-12-05 15:17 | disposition home or self-care (01) | DRG 661 ==
LOC: ED 12:16 → SUATTDRO 17:23 → 3E 17:23